=== PATIENT | male | born 1980 | race Caucasian/White ===

== ENCOUNTER → 2017-08-18 20:00 | Outpatient (CLI) | payer OTHER, SELFPAY | PROVIDERS: Family Provider Family Medicine; PCP Family Medicine; Visit Provider Psychiatry & Neurology Neurology | DX: G47.33 Obstructive sleep apnea (adult) (pediatric) (principal) | CPT/HCPCS: 95810 ==

== ENCOUNTER → 2017-09-14 20:00 | Outpatient (CLI) | payer OTHER, SELFPAY | PROVIDERS: Family Provider Family Medicine; PCP Family Medicine; Visit Provider Clinical Nurse Specialist Acute Care | DX: G47.33 Obstructive sleep apnea (adult) (pediatric) (principal) | CPT/HCPCS: 95811; J7120; J2405 ==

== ENCOUNTER → 2017-12-06 07:02 | Outpatient (CLI) | payer OTHER, SELFPAY ==
[2017-12-06 10:33] LABS: Absolute Lymphocyte Count 2.01 X10^3/ul (0.83-4.51); Absolute Neutrophil Count 1.9 X10^3/uL (2.0-7.7); Basophil# 0.02 X10^3/uL; Basophil% 0.4 % (0-1); Eosinophil# 0.13 X10^3/uL; Eosinophils% 2.6 % (0-5); Hematocrit 48.9 % (40-54); Hemoglobin 16.5 g/dl (13.0-16.5); Lymphocyte # 2.01 X10^3/ul (4.0); Lymphocyte % 39.6 % (19-41); Mean Corp Hgb Conc 33.7 g/gl (32-36); Mean Corpuscular Hgb 28.2 pg (27.0-32.0); Mean Corpuscular Volume 83.4 fL (80-94); Mean Platelet Vol. 11.3 fl (6.2-12.0); Monocyte# 0.99 X10^3/uL; Monocyte% 19.5 % (0-10); Neutrophil # 1.92 X10^3/uL (2.7-7.7); Neutrophil % 37.7 % (47-70); Platelet Count 169 K/mm3 (150-450); RBC Distribution Width CV 12.9 % (11.6-14.6); RBC Distribution Width SD 39.6 fl (35.1-43.9); Red Blood Count 5.86 M/mm3 (4.6-6.2); White Blood Count 5.1 K/mm3 (4.4-11.0)
[2017-12-06 10:36] LABS: POSITIVE COUNT NO; POSITIVE DIFFERENTIAL NO; POSITIVE MORPHOLOGY NO
== END ==
PROVIDERS: Family Provider Family Medicine; PCP Family Medicine; Referring Provider Family Medicine; Visit Provider Family Medicine
DX: E29.1 Testicular hypofunction (principal)
CPT/HCPCS: 36415; 84403; 85025

== ENCOUNTER → 2018-01-24 16:30 | Outpatient (CLI) | payer OTHER, SELFPAY ==
[2017-03-04 13:38] VITALS: BMI 37.5
[2018-01-24 17:33] LABS: Absolute Neutrophil Count 3.1 X10^3/uL (2.0-7.7); Basophil# 0.03 X10^3/uL; Basophil% 0.5 % (0-1); Eosinophil# 0.16 X10^3/uL; Eosinophils% 2.4 % (0-5); Hematocrit 46.5 % (40-54); Hemoglobin 15.1 g/dl (13.0-16.5); Lymphocyte % 39.7 % (19-41); Mean Corp Hgb Conc 32.5 g/gl (32-36); Mean Corpuscular Hgb 28.1 pg (27.0-32.0); Mean Corpuscular Volume 86.4 fL (80-94); Mean Platelet Vol. 10.3 fl (6.2-12.0); Monocyte# 0.62 X10^3/uL; Monocyte% 9.5 % (0-10); Neutrophil # 3.13 X10^3/uL (2.7-7.7); Neutrophil % 47.7 % (47-70); Platelet Count 188 K/mm3 (150-450); RBC Distribution Width CV 13.1 % (11.6-14.6); RBC Distribution Width SD 41.4 fl (35.1-43.9); Red Blood Count 5.38 M/mm3 (4.6-6.2); White Blood Count 6.6 K/mm3 (4.4-11.0)
[2018-01-24 17:40] LABS: Cholesterol 145 mg/dL (200); High Density Lipoprotein 35 mg/dL; Triglycerides 172 mg/dL
[2018-01-24 17:41] LABS: POSITIVE COUNT NO; POSITIVE DIFFERENTIAL NO; POSITIVE MORPHOLOGY NO; Very Low Density Lipoprotein 34 mg/dL (5-40)
== END ==
PROVIDERS: Family Provider Family Medicine; PCP Family Medicine; Visit Provider Family Medicine
DX: E34.9 Endocrine disorder, unspecified (principal)
CPT/HCPCS: 36415; 80061; 84403; 85025

== ENCOUNTER → 2018-07-10 | Outpatient (CLI) | payer OTHER, SELFPAY ==
[2017-03-04 13:38] VITALS: BMI 37.5
[2018-07-10 12:27] LABS: Absolute Lymphocyte Count 2.02 X10^3/ul (0.83-4.51); Absolute Neutrophil Count 2.8 X10^3/uL (2.0-7.7); Basophil# 0.02 X10^3/uL; Basophil% 0.3 % (0-1); Eosinophil# 0.21 X10^3/uL; Eosinophils% 3.5 % (0-5); Hematocrit 50.9 % (40-54); Hemoglobin 17.2 g/dl (13.0-16.5); Lymphocyte # 2.02 X10^3/ul (4.0); Lymphocyte % 34.1 % (19-41); Mean Corp Hgb Conc 33.8 g/gl (32-36); Mean Corpuscular Hgb 27.8 pg (27.0-32.0); Mean Corpuscular Volume 82.4 fL (80-94); Mean Platelet Vol. 11.7 fl (6.2-12.0); Monocyte# 0.87 X10^3/uL; Monocyte% 14.7 % (0-10); Neutrophil % 47.2 % (47-70); POSITIVE COUNT NO; POSITIVE DIFFERENTIAL NO; POSITIVE MORPHOLOGY NO; Platelet Count 182 K/mm3 (150-450); RBC Distribution Width CV 13.7 % (11.6-14.6); RBC Distribution Width SD 41.2 fl (35.1-43.9); Red Blood Count 6.18 M/mm3 (4.6-6.2); White Blood Count 5.9 K/mm3 (4.4-11.0)
[2018-07-10 13:15] LABS: Cholesterol 159 mg/dL (200); High Density Lipoprotein 33 mg/dL; Thyroid Stim Hormone (TSH) 1.29 uIU/mL (0.358-3.74); Triglycerides 209 mg/dL; Very Low Density Lipoprotein 42 mg/dL (5-40)
== END | disposition home or self-care (01) ==
LOC: MFPLAB 09:34
PROVIDERS: Family Provider Family Medicine; PCP Family Medicine; Referring Provider Family Medicine; Visit Provider Family Medicine
DX: Z00.00 Encounter for general adult medical examination without abnormal findings (principal); E34.9 Endocrine disorder, unspecified
CPT/HCPCS: 36415; 80061; 84403; 84443; 85025

== ENCOUNTER → 2018-11-09 11:02 | Outpatient (CLI) | payer OTHER, SELFPAY ==
[2017-03-04 13:38] VITALS: BMI 37.5
[2018-11-09 13:00] LABS: Absolute Lymphocyte Count 1.94 X10^3/uL (0.83-4.51); Absolute Neutrophil Count 3.1 X10^3/uL (2.0-7.7); Basophil# 0.03 X10^3/uL; Basophil% 0.5 % (0-1); Eosinophil# 0.18 X10^3/uL; Hematocrit 51.4 % (40-54); Hemoglobin 16.4 g/dL (13.0-16.5); Lymphocyte # 1.94 X10^3/ul (4.0); Lymphocyte % 32.2 % (19-41); Mean Corp Hgb Conc 31.9 g/dL (32-36); Mean Corpuscular Volume 84.7 fL (80-94); Mean Platelet Vol. 10.7 fl (6.2-12.0); Monocyte# 0.74 X10^3/uL; Monocyte% 12.3 % (0-10); NRBC Flagged by Analyzer 0 % (0-5); Neutrophil # 3.12 X10^3/uL (2.7-7.7); Neutrophil % 51.8 % (47-70); Platelet Count 184 K/mm3 (150-450); Red Blood Count 6.07 M/mm3 (4.6-6.2)
== END ==
PROVIDERS: Family Provider Family Medicine; PCP Family Medicine; Referring Provider Family Medicine; Visit Provider Family Medicine
DX: E34.9 Endocrine disorder, unspecified (principal)
CPT/HCPCS: 36415; 84403; 85025

== ENCOUNTER → 2019-10-01 14:05 | Outpatient (CLI) | payer OTHER, SELFPAY ==
[2019-10-01 15:06] LABS: Absolute Neutrophil Count 3.2 X10^3/uL (2.0-7.7); Basophil# 0.03 X10^3/uL; Basophil% 0.5 % (0-1); Eosinophils% 3.1 % (0-5); Hematocrit 50.8 % (40-54); Hemoglobin 15.9 g/dL (13.0-16.5); Lymphocyte % 34.6 % (19-41); Mean Corp Hgb Conc 31.3 g/dL (32-36); Mean Corpuscular Volume 86.2 fL (80-94); Mean Platelet Vol. 10.9 fl (6.2-12.0); Monocyte# 0.75 X10^3/uL; Monocyte% 11.8 % (0-10); NRBC Flagged by Analyzer 0 % (0-5); Neutrophil # 3.15 X10^3/uL (2.7-7.7); Neutrophil % 49.5 % (47-70); Platelet Count 201 K/mm3 (150-450); RBC Distribution Width CV 12.8 % (11.6-14.6); RBC Distribution Width SD 40.4 fl (35.1-43.9); Red Blood Count 5.89 M/mm3 (4.6-6.2); White Blood Count 6.4 K/mm3 (4.4-11.0)
[2019-10-05 14:08] LABS: Testosterone, Free 50.93 ng/dL (5.00-21.00)
[2019-10-06 01:21] LABS: Testosterone, % Free 3.68 % (1.50-4.20); Testosterone, Total 1384 ng/dL (264-916)
== END ==
PROVIDERS: PCP Family Medicine; Visit Provider Family Medicine
DX: E34.9 Endocrine disorder, unspecified (principal)
CPT/HCPCS: 36415; 84402; 84403; 85025

== ENCOUNTER 2019-11-05 12:00 | Outpatient (RCR) | payer OTHER, SELFPAY | END 2019-11-05 23:59 | disposition home or self-care (01) | LOC: NS 12:00 | PROVIDERS: PCP Family Medicine; Visit Provider Family Medicine | DX: Z71.3 Dietary counseling and surveillance (principal); E66.9 Obesity, unspecified; Z68.37 Body mass index [BMI] 37.0-37.9, adult | CPT/HCPCS: 97802 ==

== ENCOUNTER → 2020-03-13 07:44 | Outpatient (CLI) | payer BC, SELFPAY ==
[2020-03-13 09:43] LABS: Absolute Lymphocyte Count 2.09 X10^3/uL (0.83-4.51); Absolute Neutrophil Count 2.9 X10^3/uL (2.0-7.7); Basophil# 0.02 X10^3/uL; Basophil% 0.3 % (0-1); Eosinophil# 0.17 X10^3/uL; Eosinophils% 2.8 % (0-5); Hematocrit 49.4 % (40-54); Hemoglobin 15.3 g/dL (13.0-16.5); Lymphocyte # 2.09 X10^3/ul (4.0); Lymphocyte % 34.7 % (19-41); Mean Corpuscular Hgb 26.4 pg (27.0-32.0); Mean Corpuscular Volume 85.3 fL (80-94); Mean Platelet Vol. 10.7 fl (6.2-12.0); Monocyte# 0.83 X10^3/uL; Monocyte% 13.8 % (0-10); NRBC Flagged by Analyzer 0 % (0-5); Neutrophil % 48.1 % (47-70); Platelet Count 186 K/mm3 (150-450); RBC Distribution Width CV 13.1 % (11.6-14.6); RBC Distribution Width SD 40.7 fl (35.1-43.9); Red Blood Count 5.79 M/mm3 (4.6-6.2)
[2020-03-17 08:08] LABS: Testosterone, Free 13.72 ng/dL (5.00-21.00)
[2020-03-17 09:23] LABS: Testosterone, % Free 3.26 % (1.50-4.20); Testosterone, Total 421 ng/dL (264-916)
== END ==
PROVIDERS: PCP Family Medicine; Referring Provider Family Medicine; Visit Provider Family Medicine
DX: E34.9 Endocrine disorder, unspecified (principal)
CPT/HCPCS: 36415; 84402; 84403; 85025

== ENCOUNTER → 2021-02-10 | Outpatient (CLI) | payer OTHER, SELFPAY | END | disposition home or self-care (01) | LOC: LABSPEC 08:28 | PROVIDERS: PCP Family Medicine; Referring Provider Physician Assistant; Visit Provider Physician Assistant | DX: Z11.52 Encounter for screening for COVID-19 (principal) | CPT/HCPCS: 87635; U0005; U0003 ==

== ENCOUNTER 2021-06-09 07:10 | Outpatient (CLI) | payer OTHER, SELFPAY ==
[2021-06-09 10:14] LABS: Absolute Lymphocyte Count 1.81 X10^3/uL (0.83-4.51); Absolute Neutrophil Count 2.2 X10^3/uL (2.0-7.7); Basophil# 0.03 X10^3/uL; Basophil% 0.6 % (0-1); Eosinophil# 0.15 X10^3/uL; Eosinophils% 2.9 % (0-5); Hematocrit 47.6 % (40-54); Hemoglobin 15.8 g/dL (13.0-16.5); Lymphocyte # 1.81 X10^3/ul (0.83-4.51); Mean Corp Hgb Conc 33.2 g/dL (32-36); Mean Corpuscular Hgb 27.6 pg (27.0-32.0); Mean Corpuscular Volume 83.1 fL (80-94); Mean Platelet Vol. 10.6 fl (6.2-12.0); Monocyte# 0.94 X10^3/uL; Monocyte% 18.2 % (0-10); NRBC Flagged by Analyzer 0 % (0-5); Neutrophil # 2.24 X10^3/uL (2.7-7.7); Neutrophil % 43.3 % (47-70); Platelet Count 186 K/mm3 (150-450); RBC Distribution Width CV 12.4 % (11.6-14.6); RBC Distribution Width SD 37.5 fl (35.1-43.9); Red Blood Count 5.73 M/mm3 (4.6-6.2); White Blood Count 5.2 K/mm3 (4.4-11.0)
[2021-06-09 10:35] LABS: Hemoglobin A1c 5.1 % (3.8-5.6)
[2021-06-09 10:41] LABS: Cholesterol 134 mg/dL (200); High Density Lipoprotein 34 mg/dL; Triglycerides 82 mg/dL; Very Low Density Lipoprotein 16 mg/dL (5-40)
== END 2021-06-09 23:59 | disposition home or self-care (01) ==
PROVIDERS: PCP Family Medicine; Referring Provider Family Medicine; Visit Provider Family Medicine
DX: E34.9 Endocrine disorder, unspecified (principal)
CPT/HCPCS: 36415; 80061; 83036; 84403; 85025

== ENCOUNTER → 2022-07-29 | Outpatient (CLI) | payer OTHER, SELFPAY ==
[2022-07-29 12:27] LABS: Absolute Lymphocyte Count 1.99 X10^3/uL (0.83-4.51); Basophil# 0.02 X10^3/uL; Basophil% 0.3 % (0-1); Eosinophil# 0.18 X10^3/uL; Hematocrit 51.5 % (40-54); Hemoglobin 16.3 g/dL (13.0-16.5); Lymphocyte # 1.99 X10^3/ul (0.83-4.51); Lymphocyte % 32.7 % (19-41); Mean Corp Hgb Conc 31.7 g/dL (32-36); Mean Corpuscular Hgb 25.9 pg (27.0-32.0); Mean Corpuscular Volume 81.7 fL (80-94); Monocyte% 14.8 % (0-10); NRBC Flagged by Analyzer 0 % (0-5); Neutrophil # 2.99 X10^3/uL (2.7-7.7); Platelet Count 198 K/mm3 (150-450); RBC Distribution Width CV 13.4 % (11.6-14.6); White Blood Count 6.1 K/mm3 (4.4-11.0)
[2022-07-29 13:25] LABS: Cholesterol 153 mg/dL (200); High Density Lipoprotein 41 mg/dL; PSA,Total - Annual Screen 0.42 ng/mL (0.00-4.00); Triglycerides 137 mg/dL; Very Low Density Lipoprotein 27 mg/dL (5-40)
== END | disposition home or self-care (01) ==
LOC: MFPLAB 11:19
PROVIDERS: PCP Family Medicine; Visit Provider Family Medicine
DX: E34.9 Endocrine disorder, unspecified (principal)
CPT/HCPCS: 36415; 80061; 84153; 84403; 85025; G0103

== ENCOUNTER → 2022-09-07 | Outpatient (CLI) | payer OTHER, SELFPAY | END | disposition home or self-care (01) | PROVIDERS: PCP Family Medicine; Referring Provider Nurse Practitioner Acute Care; Visit Provider Nurse Practitioner Acute Care | DX: G47.33 Obstructive sleep apnea (adult) (pediatric) (principal) | CPT/HCPCS: 95811 ==

== ENCOUNTER → 2022-11-09 | Outpatient (CLI) | payer OTHER, SELFPAY ==
[2022-11-13 16:07] LABS: Testosterone, % Free 2.66 % (1.50-4.20); Testosterone, Total 252 ng/dL (264-916)
== END | disposition home or self-care (01) ==
LOC: MFPLAB 08:36
PROVIDERS: PCP Family Medicine; Visit Provider Nurse Practitioner Family
DX: E34.9 Endocrine disorder, unspecified (principal)
CPT/HCPCS: 36415; 84402; 84403

== ENCOUNTER → 2023-04-22 | Outpatient (CLI) | payer OTHER, SELFPAY ==
--- OUTSIDE RECORDS SUMMARY | 2023-04-22 07:06 | XMS RPT_ITS | CCD ---
Author Name Unknown Address [address] [place] [address] Organization [facility] Care Team Providers Care [employer] Finish [employer] Operator Name Role Phone EUGENE OLIVA, DR VERMA Primary Care Physician Medications Current Medications Medication Drug Class(es) Dates Sig (Normalized) Sig (Original) testosterone 30 mg/actuation transdermal solution (1 source) Start: 04-16-2021 testosterone 30 mg/actuation transdermal solution Apply 2 (TWO) pumps daily, alternating with 3 (THREE) pump daily transdermal Start Date: 04/16/21 Status: Ordered Problems Problem Classification Problem Date Documented Da te Episodic/Chronic Nonspecific chest pain (1 source) Chest pain; Translations: [Chest pain, unspecified] Onset: 04-16-2021 Episodic Results Test Name Value Interpretation Reference Range Facil ity Vital Signs Date Time Vital Sign Value Performing Clinician Jarrett aggarwal 04-16-2021 17:15-0500 Diastolic blood pressure 87 mm[Hg] DR LUI MAYES MD [facility] 04-16-2021 17:15-0500 Heart rate 62 /min DR LUI MAYES MD [facility] 04-16-2021 17:15-0500 Reason For Taking VItal Signs DR LUI MAYES MD [facility] 04-16-2021 17:15-0500 Respiratory rate 20 /min DR LUI MAYES MD [facility] 04-16-2021 17:15-0500 Systolic blood pressure 142 mm[Hg] DR LUI MAYES MD [facility] 04-16-2021 15:50-0500 Diastolic blood pressure 83 mm[Hg] DR LUI MAYES MD [facility] 04-16-2021 15:50-0500 Heart rate 54 /min DR LUI MAYES MD [facility] 04-16-2021 15:50-0500 Reason For Taking VItal Signs DR LUI MAYES MD [facility] 04-16-2021 15:50-0500 Respiratory rate 20 /min DR LUI MAYES MD [facility] 04-16-2021 15:50-0500 Systolic blood pressure 128 mm[Hg] DR LUI MAYES MD [facility] 04-16-2021 14:59-0500 Diastolic blood pressure 80 mm[Hg] DR LUI MAYES MD [facility] 04-16-2021 14:59-0500 Heart rate 74 /min DR LUI MAYES MD [facility] 04-16-2021 14:59-0500 Mean blood pressure 98 mm[Hg] DR LUI MAYES MD [facility] 04-16-2021 14:59-0500 Respiratory rate 18 /min DR LUI MAYES MD [facility] 04-16-2021 14:59-0500 Systolic blood pressure 135 mm[Hg] DR LUI MAYES MD [facility] 04-16-2021 14:52-0500 Mean blood pressure 100 mm[Hg] DR LUI MAYES MD [facility] 04-16-2021 14:52-0500 Reason For Taking VItal Signs DR LUI MAYES MD [facility] 04-16-2021 14:10-0500 Body temperature 98.6 [degF] DR LUI MAYES MD [facility] 04-16-2021 14:10-0500 Body weight [address] LUI MAYES MD [facility] 04-16-2021 14:10-0500 Heart rate 62 /min DR LUI MAYES MD [facility] Encounters Encounter Date Encounter Type Care Provider Facility Start: 04-16-2021 End: 04-16-2021 Emergency department patient visit DR LUI MAYES MD [facility] Social History Date Type Detail Facility Start: 04-16-2021 Never smoked t rocíoeddie (finding) [facility] Sex Assigned At Male [facility] Discharge instructions 04-16-2021 Note Date & Type Note Facility 04-16-2021 Hospital Discharg e instructions Patient Education 04/16/2021 17:17:55 Chest Pain, Uncertain Cause Uncertain Causes of Chest Pain Chest pain can happen for a number of reasons. Sometimes the cause can't be determined. If your condition does not seem serious, and your pain does not appear to be coming from your heart, your healthcare provider may recommend watching it closely. Sometimes the signs of a serious problem take more time to appear. Many problems not related to your heart can cause chest pain. These include: Musculoskeletal. Costochondritis is an inflammation of the tissues around the ribs that can occur from trauma or overuse injuries, or a strain of the muscles of the chest wall Respiratory. Pneumonia, collapsed lung (pneumothorax), or inflammation of the lining of the chest and lungs (pleurisy) Gastrointestinal. Esophageal reflux, heartburn, ulcers, or gallbladder disease Anxiety and panic disorders Nerve compression and inflammation Rare miscellaneous problems such as aortic aneurysm (a swelling of the large artery coming out of the heart) or pulmonary embolism (a blood clot in the lungs) Home care After your visit, follow these recommendations: Rest today and avoid strenuous activity. Take any prescribed medicine as directed. Be aware of any recurrent chest pain and notice any changes Follow-up care Follow up with your healthcare provider if you do not start to feel better within 24 hours, or as advised. Call 911 Call 911 if any of these occur: A change in the type of pain: if it feels different, becomes more severe, lasts longer, or begins to spread into your shoulder, arm, neck, jaw or back Shortness of breath or increased pain with breathing Weakness, dizziness, or fainting Rapid heart beat Crushing sensation in your chest When to seek medical advice Call your healthcare provider right away if any of the following occur: Cough with dark colored sputum (phlegm) or blood Fever of 100.4 F (38 C) or higher, or as directed by your healthcare provider Swelling, pain or redness in one leg [phone] [employer]. [address] [place] [address], [place] [address]. All rights reserved. This information is not intended as a substitute for professional medical care. Always follow your healthcare professional's instructions. Follow Up Care 04/16/2021 13:49:18 With:LUCI KNIGHT MD Address: [address] [place] [address]- When:2-4 days [facility] Progress note 11-12-2020 Note Date & Type Note Facility 11-12-2020 Note HNO ID: [id number] Author: Oscar Hernandez APRN.INFORMATION SECURITY OFFICER Service: ? Author Type: Nurse Practitioner Type: Progress Notes Filed: 11/12/2020 8:23 AM Note Text: Subjective HPI HPI Jr Mello is a 39 year old male who presents today for CC of sore throat, cough, congestion, loss of taste. This started 3 days ago. Has tried otc medication for relief. Symptoms are worse at night/st. Risk factors sick children at home, negative for covid. Patient denies fever, sob/cp. .Patient presents with: Cough: cough, sinus, congestion, and ST x 3 days PAST MEDICAL HISTORY Diagnosis Date - PMH - PAST MEDICAL HISTORY OF none PAST SURGICAL HISTORY Procedure Laterality Date - COLONOSCOP W/ OR W/O [facility] SPEC 12/28/03 Colonoscopy - hyperplastic polyp - PAST SURGICAL HISTORY OF testicular bx ALLERGIES Patient has no known allergies. MEDICATIONS AXIRON 30 mg/actuation (1.5 mL) slpm predniSONE (DELTASONE) 20 mg tablet Take 2 tablets by mouth once daily for 5 days. mupirocin (BACTROBAN) 2 % ointment Apply 1 application to affected area three times daily. FAMILY HISTORY Problem Relation Age of Onset - other (colonic polyps [Other]) Father Social History Tobacco Use - Smoking status: Never Smoker - Smokeless tobacco: Never Used Substance Use Topics - Alcohol use: Yes Comment: ocassional - Drug use: No Review of Systems Constitutional: Positive for malaise/fatigue. Negative for fever. HENT: Positive for congestion and sore throat. Negative for ear pain and nosebleeds. Respiratory: Positive for cough. Negative for shortness of breath and wheezing. Cardiovascular: Negative for chest pain. Musculoskeletal: Negative for neck pain. Skin: Negative for itching and rash. Objective Blood pressure 136/86, pulse 68, temperature 36.1 ?C (97 ?F), temperature source Tympanic, resp. rate 16, weight 125.9 kg (277 lb 9.6 oz), SpO2 96 %. Physical Exam Constitutional: General: He is not in acute distress. Appearance: He is not toxic-appearing or diaphoretic. HENT: Head: Normocephalic and atraumatic. Nose: Nose normal. Mouth/Throat: Pharynx: Uvula midline. No pharyngeal swelling, oropharyngeal exudate, posterior oropharyngeal erythema or uvula swelling. Eyes: General: Lids are normal. No scleral icterus. Right eye: No discharge. Left eye: No discharge. Conjunctiva/sclera: Conjunctivae normal. Pupils: Pupils are equal, round, and reactive to light. Neck: Trachea: Trachea normal. Cardiovascular: Rate and Rhythm: Normal rate and regular rhythm. Heart sounds: Normal heart sounds. Pulmonary: Effort: Pulmonary effort is normal. Breath sounds: Normal breath sounds. Musculoskeletal: Cervical back: Normal range of motion and neck supple. Lymphadenopathy: Cervical: No cervical adenopathy. Right cervical: No superficial cervical adenopathy. Left cervical: No superficial cervical adenopathy. Skin: Findings: No rash. Neurological: Mental Status: He is alert and oriented to person, place, and time. ASSESSMENT/PLAN: 1. URI, acute - ICD9: 465.9, ICD10: J06.9 (primary diagnosis) - Discussed viral etiology and rationale for treatment. - Symptomatic treatment with prn analgesia - Supportive care with fluids and rest - Follow up in 3-5 days if symptoms persist or sooner if worsening of symptoms - 2019 CORONAVIRUS 2. Sore throat - ICD9: 462, ICD10: J02.9 - suspect viral Prednisone for severity of pain - Alere Strep Test negative, no culture pending - Discussed supportive care treatment with fluids, rest and analgesia. - The patient should follow up in 3-5 days if symptoms persist or worsen - Call back if drooling, increased temperature, symptoms of dehydration and/or still sick in one week - STREP A MOLECULAR (POC) - 2019 CORONAVIRUS - PREDNISONE 20 MG TABLET Agrees to plan Oscar Hernandez APRN.INFORMATION SECURITY OFFICER [facility] Evaluation + Plan note Note Date & Type Note Facility Evaluation + Plan note No data available for this section [facility] [place] Summary Purpose Family History No Family History Records FoundNo Family History Records Found Advance Directives No Advanced Directives Records FoundNo Advanced Directives Records Found Additional Source Comments (unrecognized sect ion and content) No Status Records FoundNo Status Records Found INFORMATION SOURCE (unrecogn ized section and content) DATE CREATED AUTHOR AUTHOR'S ORGANIZ ATION 05/15/2021 [facility] ([place]) FOR RECORDS PERTAINING TO PATIENTS WHO ARE OR HAVE BEEN ENROLLED IN A CHEMICAL DEPENDENCY/SUBSTANCEABUSE PROGRAM, SOME INFORMATION MAY BE OMITTED. This clinical summary was aggregated from multiple sources. Caution should be exercised in using it in the provision of clinical care. This summary normalizes information from multiple sources, and as a consequence, information in this document may materially change the coding, format and clinical context of patient data. In addition, data may be omitted in some cases. CLINICAL DECISIONS SHOULD BE BASED ON THE PRIMARY CLINICAL RECORDS. [facility]. provides no warranty or guarantee of the accuracy or completeness of information in this document.
[2023-04-22 08:21] LABS: Absolute Lymphocyte Count 1.72 X10^3/uL (0.83-4.51); Basophil# 0.02 X10^3/uL; Basophil% 0.4 % (0-1); Eosinophil# 0.17 X10^3/uL; Eosinophils% 3.6 % (0-5); Hematocrit 46.6 % (40-54); Hemoglobin 15.2 g/dL (13.0-16.5); Lymphocyte # 1.72 X10^3/ul (0.83-4.51); Lymphocyte % 36.6 % (19-41); Mean Corp Hgb Conc 32.6 g/dL (32-36); Mean Corpuscular Hgb 27.4 pg (27.0-32.0); Mean Corpuscular Volume 84.1 fL (80-94); Mean Platelet Vol. 10.9 fl (6.2-12.0); Monocyte# 0.74 X10^3/uL; Monocyte% 15.7 % (0-10); NRBC Flagged by Analyzer 0 % (0-5); Neutrophil # 2.04 X10^3/uL (2.7-7.7); Neutrophil % 43.5 % (47-70); Platelet Count 197 K/mm3 (150-450); RBC Distribution Width CV 12.4 % (11.6-14.6); RBC Distribution Width SD 37.5 fl (35.1-43.9); Red Blood Count 5.54 M/mm3 (4.6-6.2); White Blood Count 4.7 K/mm3 (4.4-11.0)
[2023-04-22 08:42] LABS: Anion Gap 4 (5-15); BUN 20 mg/dL (7-18); BUN/Creat Ratio 17.9 RATIO (10-20); Calcium,Total 9.5 mg/dL (8.5-10.1); Chloride 112 mmol/L (98-107); Cholesterol 162 mg/dL (200); Creatinine, Serum 1.12 mg/dL (0.70-1.30); EST Glomerular Filtration Rate 76 mL/min (>60); Est Glom Filt Rate - Afr Amer 91 mL/min (>60); Glucose 85 mg/dL (74-106); High Density Lipoprotein 46 mg/dL; Potassium 4.1 mmol/L (3.5-5.1); Sodium Level 143 mmol/L (136-145); Triglycerides 60 mg/dL; Very Low Density Lipoprotein 12 mg/dL (5-40)
[2023-04-22 10:07] LABS: Microalbumin,Random Urine 19.1 mg/L (NO RANGE EST.); Microalbumin:Creatinine Ratio 8.7 mg/g CRE (<30 mg/g CRE)
== END | disposition home or self-care (01) ==
LOC: LAB 07:05
PROVIDERS: PCP Family Medicine; Referring Provider Family Medicine; Visit Provider Family Medicine
DX: I10 Essential (primary) hypertension (principal); E34.9 Endocrine disorder, unspecified
CPT/HCPCS: 36415; 80048; 80061; 82043; 82570; 84403; 85025

== ENCOUNTER 2023-07-03 07:24 | Day surgery (SDC) | payer OTHER, SELFPAY ==
[2023-07-03 07:41] VITALS: BP 131/82; PULSE 54; RESP 16; TEMP 36.6; O2SAT 98; BMI 39.9
[2023-07-03] MEDS: Lactated Ringers 1,000 ML 15 ML IV (07:43)
--- NOTE | 2023-07-03 08:15 | COLBX_PTH ---
PATIENT: RENÉ KNOX LOC: EN U#:[id number] AGE/SX: 42/M ROOM: RE07/03/[address]: Dr. Moise Live DO : 1980 BED: DIS: 07/03/2023 SPEC #: [id number] RECD: 07/03/23 11:08 STATUS: MARGY CUENCAHarjeet #: [id number] JUAN CARLOS: 07/03/23 08:[address]: Moise Live DEPT: SURGICAL PATHOLOGY RECD BY: Dale Doss ENTERED: 07/03/23 13:38 SP TYPE: COLON BX TAMELA DR: Dr. Catalina Polk MD Tissues: A - Cecum, NOS B - Sigmoid colon biopsy Procedures: Surgery Specimen Level IV HEADER OPERATION: Colonoscopy with polypectomy PRE-OP DIAGNOSIS: Encounter for screening for malignant neoplasm of colon TISSUE SUBMITTED: A- Polyp of cecum, B- Polyp of sigmoid MICROSCOPIC DIAGNOSIS A. Cecal polyp, biopsy: Fragments of tubular adenoma. B. Sigmoid polyp, biopsy: Fragments of tubular adenoma. / 07/05/2023 MICROSCOPIC DESCRIPTION Slides are reviewed. GROSS DESCRIPTION A. Received in fixative is one container labeled with the patient's name and designated Cecum polyp. The specimen consists of multiple irregular fragments of light bird soft tissue that in aggregate measure 2.0 x 1.0 x 0.1 cm. The specimen is totally submitted in one cassette. B. Received in fixative is one container labeled with the patient's name and designated Sigmoid polyp. The specimen consists of a polypoid fragment of light bird soft tissue measuring 1.0 x 0.7 x 0.3cm. The specimen is bisected and totally submitted in one cassette. / 07/03/2023 TC:5 [facility]:[id number]
--- NOTE | 2023-07-03 08:33 | PCM.HP.STD ---
[facility] - General General Date of Admission: 07/03/23 Date of Service: 07/03/23 Chief Complaint: Screening colonoscopy [facility] Narrative RENÉ KNOX, is a 42 M who presents today for screening colonoscopy. He has a past medical history of obstructive sleep apnea. He also has past medical history of hypertension. He comes in today for colonoscopy. He has a strong family history of colon cancer in his grandfather and uncle. Also his dad had history of multiple polyps. He is not have any abdominal pain. Denies any cramping. Denies any chest pain shortness of breath. Overall he is a very good health. [facility] Medical History (Updated 06/28/23 @ 13:56 by Patrizia Noble) Acute bronchitis, unspecified BiPAP (biphasic positive airway pressure) dependence Family hx of colon cancer History of irregular heartbeat HTN (hypertension) Hx of colonic polyp Non-smoker Sleep apnea Wears glasses Home Medications testosterone 30 mg/actuation (1.5 mL) transderm solution metered pump (Axiron) 2 pump topical QDAY 03/04/17 [History Last Taken Unknown] losartan 50 mg tablet 50 mg PO DAILY 05/19/23 [History Last Taken 07/03/23 05:00] Allergy/AdvReac Type Severity Reaction Status Date / Time No Known Allergies Allergy Verified 07/03/23 07:40 Surgical History (Updated 05/19/23 @ 11:09 by Rohini Hernandez) Hx of colonoscopy Social History (Updated 05/19/23 @ 11:09 by Rohini Hernandez) household members: spouse and children current occupational status: employed current occupation: [employer] Smoking Status: Never smoker alcohol intake: never substance use type: does not use ROS Review of Systems ROS Unobtainable: other Constitutional Constitutional: Denies fatigue, fever(s), poor appetite, weight gain or weight loss ENT HEENT: Denies mouth lesions Cardiovascular Cardiovascular: Denies abdominal bloating, abdominal edema or abdominal pain Respiratory/Chest Respiratory/Chest: Denies change in mental status, change in phlegm color, chest congestion or chest tightness Gastrointestinal Gastrointestinal: Denies belching, bloating, change in bowel habits, change in stool character, chewing difficulty, coffee ground emesis, constipation, cramping, diarrhea, dyspepsia, dysphagia, early satiety, excessive flatus, fecal incontinence, heartburn, hematemesis, hematochezia, hemorrhoids, loose stools, melena, nausea, odynophagia, rectal bleeding, tenesmus, vomiting or weight changes Genitourinary Genitourinary: Denies abdominal discomfort, burning urination or itching Musculoskeletal Musculoskeletal: Reports as per HPI; Denies muscle weakness or myalgias Integumentary Integumentary: Denies jaundice Neurologic Neurologic: Denies lack of coordination or weakness Psychiatric Psychiatric: Denies confusion, depression, memory loss, mood swings, paranoia or suicidal ideation Endocrine Endocrinology: Denies systems reviewed and no addt'l complaints, except as documented Hematologic/Lymphatic Hematologic/Lymphatic: Denies anemia, easy bleeding, easy bruising or lymphadenopathy Allergic/Immunologic Allergic/Immunologic: Denies systems reviewed and no addt'l complaints, except as documented Vital Signs Vital Signs Vital Signs: 07/03/23 07:41 07/03/23 07:41 Temperature 97.8 F Temperature Source Temporal Pulse Rate 54 L Respiratory Rate 16 Respiratory Pattern Normal Blood Pressure 131/82 H Blood Pressure Mean 98 Blood Pressure Source Monitor Blood Pressure Position Semi-Fowlers Blood Pressure Location Left Arm Pulse Ox 98 Oxygen Delivery Method Room Air Weight Weight: 286 lb 9.615 oz Body Mass Index (BMI) 39.9 Physical Exam Const alert General Appearance: cooperative Orientation / Consciousness: oriented to person HEENT hearing grossly normal bilaterally Head and Scalp: normal to inspection Face and Sinus: face symmetric Nose: external nose normal Mouth: oral and palatal mucosa normal Eyes conjunctivae normal General Eye: normal appearance of both eyes Neck full ROM General: normal visual inspection Lymph Lymphatic: no lymphadenopathy noted Chest inspection of chest normal and palpation of chest normal Chest: symmetrical chest wall rise Resp normal respiratory effort Effort and Inspection: able to speak in complete sentences Cardio regular rate GI non-distended Percussion: normal to percussion Rectal Exam: deferred Neuro Speech: speech normal Gait (Neuro): normal gait Assessment & Plan Assessment/Plan (1) Encounter for screening for malignant neoplasm of colon: PLAN: He was explained alternatives, risk, benefits including not withstanding bleeding, infection, sepsis, perforation, need for emergent surgery and . He will have an ASA of 3.
--- NOTE | 2023-07-03 09:00 | OP.CCLET_ITS ---
07/03/2023 Catalina [address]k [address] [place] [address] Re : Colonoscopy procedure for Gustavo Mello Dear Dr. Polk This procedure was performed on Monday, July 03, 2023. My impressions and recommendations are as follows: Impressions : - Two 1 to 2 mm polyps in the sigmoid colon and in the cecum, removed with a hot snare. Resected and retrieved. - The examination was otherwise normal on direct and retroflexion views. Recommendations : - Discharge patient to home. - Resume previous diet. - Continue present medications. - Await pathology results. - Repeat colonoscopy in 3 years for surveillance. My findings are described in the full procedure note, which is enclosed. If I can be of further assistance, please feel free to contact me at . Sincerely, Moise Live, 07/03/2023 8:59:41 AM This report has been signed electronically.
--- NOTE | 2023-07-03 09:00 | OP.COLON_ITS ---
Patient Name: Gustavo Mello Procedure Date: 07/03/2023 8:38 AM Date of : 1980 Age: 42 Procedure: Colonoscopy Indications: Screening for colorectal malignant neoplasm Providers: Moise Live DO Medicines: Monitored Anesthesia Care Patient Profile: This is a 42 year old male. Refer to note in patient chart for documentation of history and physical. Last Colonoscopy: date unknown. Unable to locate last colonoscopy report. Complications: No immediate complications. Procedure: Pre-Anesthesia Assessment: - Prior to the procedure, a History and Physical was performed, and patient medications and allergies were reviewed. The patient is competent. The risks and benefits of the procedure and the sedation options and risks were discussed with the patient. All questions were answered and informed consent was obtained. Patient identification and proposed procedure were verified by the physician in the pre-procedure area. Mental Status Examination: alert and oriented. Airway Examination: normal oropharyngeal airway and neck mobility. Respiratory Examination: clear to auscultation. CV Examination: normal. Prophylactic Antibiotics: The patient does not require prophylactic antibiotics. Prior Anticoagulants: The patient has taken no anticoagulant or antiplatelet agents. ASA Grade Assessment: III - A patient with severe systemic disease. After reviewing the risks and benefits, the patient was deemed in satisfactory condition to undergo the procedure. The anesthesia plan was to use monitored anesthesia care (MAC). Immediately prior to administration of medications, the patient was re-assessed for adequacy to receive sedatives. The heart rate, respiratory rate, oxygen saturations, blood pressure, adequacy of pulmonary ventilation, and response to care were monitored throughout the procedure. The physical status of the patient was re-assessed after the procedure. After I obtained informed consent, the scope was passed under direct vision. Throughout the procedure, the patient's blood pressure, pulse, and oxygen saturations were monitored continuously. The Colonoscope was introduced through the anus and advanced to the cecum, identified by appendiceal orifice and ileocecal valve. The colonoscopy was performed without difficulty. The patient tolerated the procedure well. The quality of the bowel preparation was adequate. The ileocecal valve, appendiceal orifice, and rectum were photographed. Scope In: 8:44:16 AM Scope Withdrawal Time 0 hours 8 minutes 5 seconds Scope Out: 8:55:47 AM Total Procedure Duration Time 0 hours 11 minutes 31 seconds Findings: The perianal and digital rectal examinations were normal. Two sessile polyps were found in the sigmoid colon and cecum. The polyps were 1 to 2 mm in size. These polyps were removed with a hot snare. Resection and retrieval were complete. Verification of patient identification for the specimen was done. Estimated blood loss was minimal. The exam was otherwise without abnormality on direct and retroflexion views. Impression: - Two 1 to 2 mm polyps in the sigmoid colon and in the cecum, removed with a hot snare. Resected and retrieved. - The examination was otherwise normal on direct and retroflexion views. Recommendation: - Discharge patient to home. - Resume previous diet. - Continue present medications. - Await pathology results. - Repeat colonoscopy in 3 years for surveillance. Procedure Code(s): --- Professional --- 89114, Colonoscopy, flexible; with removal of tumor(s), polyp(s), or other lesion(s) by snare technique CPT copyright 2021 [employer]. All rights reserved. The codes documented in this report are preliminary and upon plan nurse review may be revised to meet current compliance requirements. Moise Live DO 07/03/2023 8:59:41 AM This report has been signed electronically. Number of Addenda: 0 Note Initiated On: 07/03/2023 8:38 AM
[2023-07-03 09:01] VITALS: BP 131/82; BP 70/52; PULSE 54; RESP 14; TEMP 36.2; O2SAT 96
[2023-07-03 09:05] VITALS: BP 101/47; BP 131/82; PULSE 54; RESP 16; O2SAT 97
[2023-07-03 09:10] VITALS: BP 100/60; BP 131/82; PULSE 56; RESP 16; O2SAT 98
[2023-07-03 09:15] VITALS: BP 102/49; BP 131/82; PULSE 53; RESP 16; TEMP 36.2; O2SAT 94
[2023-07-03 09:37] VITALS: BP 131/82
== END 2023-07-03 09:39 | disposition home or self-care (01) ==
LOC: EN 07:26 → AC 07:28
PROVIDERS: PCP Family Medicine; Referring Provider Family Medicine; Visit Provider Internal Medicine Gastroenterology
PROC: 0DJD8ZZ Inspection of Lower Intestinal Tract, Via Natural or Artificial Opening Endoscopic (ICD-10-PCS; CPT 45378; principal; 2023-07-03 08:10)
DX: Z12.11 Encounter for screening for malignant neoplasm of colon (principal); K63.5 Polyp of colon; Z80.0 Family history of malignant neoplasm of digestive organs; I10 Essential (primary) hypertension; Z99.81 Dependence on supplemental oxygen; Z79.899 Other long term (current) drug therapy; D12.0 Benign neoplasm of cecum
CPT/HCPCS: 45385; 88305; J7120; J2405

== ENCOUNTER → 2023-07-31 | Outpatient (CLI) | payer OTHER, SELFPAY ==
[2023-07-31 13:30] LABS: PSA,Total - Annual Screen 0.33 ng/mL (0.00-4.00)
== END | disposition home or self-care (01) ==
LOC: MFPLAB 10:02
PROVIDERS: PCP Family Medicine; Visit Provider Family Medicine
DX: Z12.5 Encounter for screening for malignant neoplasm of prostate (principal)
CPT/HCPCS: 36415; 84153; G0103

== ENCOUNTER → 2023-12-16 | Outpatient (CLI) | payer OTHER, SELFPAY ==
--- OUTSIDE RECORDS SUMMARY | 2023-12-16 09:02 | XMS RPT_ITS | CCD ---
Author Organization [facility] Inform ion Partnership [facility] Care Team Providers Care Sonography Technologist Name Role Phone EUGENE OLIVA, DR VERMA [...] Results Test Name Value Interpretation Reference Range Facility .Auto Diffon 04-16-2021 Basophil, Absolute 0.00 10 3/mcL Normal 0.00-0.19 [facility] ([place]) Comment on above: Performed By: #### C BC, ADIFF, ANEU, BMP, TROPHS, GFR #### [address] [address] Basophils/100 WBC (Bld) 0.5 % Normal 0.0-2.5 [facility] ([place]) Comment on above: Performed By: #### C BC, ADIFF, ANEU, BMP, TROPHS, GFR #### [address] [address] Eosinophil, Absolute 0.10 10 3/mcL Normal 0.00-0.40 [facility] ([place]) Comment on above: Performed By: #### C BC, ADIFF, ANEU, BMP, TROPHS, GFR #### [address] [address] Eosinophils/100 WBC (Bld) 2.1 % Normal 0.0-7.0 [facility] ([place]) Comment on above: Performed By: #### C BC, ADIFF, ANEU, BMP, TROPHS, GFR #### [address] [address] Lymphocyte, Absolute 1.90 10 3/mcL Normal 0.77-3.85 [facility] ([place]) Comment on above: Performed By: #### C BC, ADIFF, ANEU, BMP, TROPHS, GFR #### [address] [address] Lymphocytes/100 WBC (Bld) 32.8 % Normal 10.0-50.0 [facility] ([place]) Comment on above: Performed By: #### C BC, ADIFF, ANEU, BMP, TROPHS, GFR #### [address] [address] Monocyte, Absolute 0.80 10 3/mcL Normal 0.15-1.00 [facility] ([place]) Comment on above: Performed By: #### C BC, ADIFF, ANEU, BMP, TROPHS, GFR #### [address] [address] Monocytes/100 WBC (Bld) 13.4 % High 1.7-13.0 [facility] ([place]) Comment on above: Performed By: #### C BC, ADIFF, ANEU, BMP, TROPHS, GFR #### [address] [address] Neutrophils/100 WBC (Bld) 51.2 % Normal 37.0-80.0 [facility] ([place]) Comment on above: Performed By: #### C BC, ADIFF, ANEU, BMP, TROPHS, GFR #### [address] [address] .GFRon 04-16-2021 GFR 100 ml/min/1.73sqm Normal [facility] ([place]) Comment on above: Result Comment: GFR Population mean for , Non- Americans Ages 20-29 = 116 mL/min/1.73 sq.m. Ages 30-39 = 107 mL/min/1.73 sq.m. Ages 40-49 = 99 mL/min/1.73 sq.m. Ages 50-59 = 93 mL/min/1.73 sq.m. Ages 60-69 = 85 mL/min/1.73 sq.m. Ages 70+ = 75 mL/min/1.73 sq.m. Chronic Kidney Disease: Less than 60 mL/min/1.73 square meters End Stage Renal Disease: Less than 15 mL/min/1.73 square meters Performed By: #### C BC, ADIFF, ANEU, BMP, TROPHS, GFR #### [address] [address] GFR Non- 83 ml/min/1.73sqm Normal [facility] ([place]) Comment on above: Result Comment: GFR Population mean for , Non- Americans Ages 20-29 = 116 mL/min/1.73 sq.m. Ages 30-39 = 107 mL/min/1.73 sq.m. Ages 40-49 = 99 mL/min/1.73 sq.m. Ages 50-59 = 93 mL/min/1.73 sq.m. Ages 60-69 = 85 mL/min/1.73 sq.m. Ages 70+ = 75 mL/min/1.73 sq.m. Chronic Kidney Disease: Less than 60 mL/min/1.73 square meters End Stage Renal Disease: Less than 15 mL/min/1.73 square meters Performed By: #### C BC, ADIFF, ANEU, BMP, TROPHS, GFR #### [address] [address] .NEUABSon 04-16-2021 Neutrophil, Absolute 3.00 10 3/mcL Normal 2.85-6.16 [facility] ([place]) Comment on above: Performed By: #### C BC, ADIFF, ANEU, BMP, TROPHS, GFR #### [address] [address] BMPon 04-16-2021 BUN/Creatinine Ratio 15 ratio Normal 7-27 [facility] ([place]) Comment on above: Performed By: #### C BC, ADIFF, ANEU, BMP, TROPHS, GFR #### [address] [address] Calcium [Mass/Vol] 8.6 mg/dL Normal 8.4-10.2 [facility] ([place]) Comment on above: Performed By: #### C BC, ADIFF, ANEU, BMP, TROPHS, GFR #### [address] [address] Chloride [Moles/Vol] 105 mmol/L Normal 98-107 [facility] ([place]) Comment on above: Performed By: #### C BC, ADIFF, ANEU, BMP, TROPHS, GFR #### [place] [address] CO2 [Moles/Vol] 25 mmol/L Normal 22-29 [facility] ([place]) Comment on above: Performed By: #### C BC, ADIFF, ANEU, BMP, TROPHS, GFR #### [address] [address] Creatinine [Mass/Vol] 0.99 mg/dL Normal 0.70-1.30 [facility] ([place]) Comment on above: Performed By: #### C BC, ADIFF, ANEU, BMP, TROPHS, GFR #### [address] [address] Electrolyte Balance 11.0 mEq/L Normal 4.0-15.0 [facility] ([place]) Comment on above: Performed By: #### C BC, ADIFF, ANEU, BMP, TROPHS, GFR #### [address] [address] Glucose [Mass/Vol] 109 mg/dL High 70-105 [facility] ([place]) Comment on above: Performed By: #### C BC, ADIFF, ANEU, BMP, TROPHS, GFR #### [address] [address] Potassium [Moles/Vol] 4.0 mmol/L Normal 3.5-5.1 [facility] ([place]) Comment on above: Performed By: #### C BC, ADIFF, ANEU, BMP, TROPHS, GFR #### [address] [address] Sodium [Moles/Vol] 141 mmol/L Normal 136-145 [facility] ([place]) Comment on above: Performed By: #### C BC, ADIFF, ANEU, BMP, TROPHS, GFR #### [place] [id number] Urea nitrogen [Mass/Vol] 15 mg/dL Normal 7-18 [facility] ([place]) Comment on above: Performed By: #### C BC, ADIFF, ANEU, BMP, TROPHS, GFR #### [address] [address] CBCon 04-16-2021 Erythrocyte distribution width (RBC) [Ratio] 13.1 % Normal 11.5-14.5 [facility] ([place]) Comment on above: Performed By: #### C BC, ADIFF, ANEU, BMP, TROPHS, GFR #### [address] [address] Hematocrit (Bld) [Volume fraction] 48.2 % Normal 42.0-52.0 [facility] ([place]) Comment on above: Performed By: #### C BC, ADIFF, ANEU, BMP, TROPHS, GFR #### [address] [address] Hgb 16.3 G/dL Normal 14.0-18.0 [facility] ([place]) Comment on above: Performed By: #### C BC, ADIFF, ANEU, BMP, TROPHS, GFR #### [address] [address] MCH (RBC) [Entitic mass] 28.0 pg Normal 27.0-31.2 [facility] ([place]) Comment on above: Performed By: #### C BC, ADIFF, ANEU, BMP, TROPHS, GFR #### [place] [phone] MCHC 33.8 G/dL Normal 31.8-35.4 [facility] ([place]) Comment on above: Performed By: #### C BC, ADIFF, ANEU, BMP, TROPHS, GFR #### [address] [address] MCV (RBC) [Entitic vol] 82.8 fL Normal 80.0-94.0 [facility] ([place]) Comment on above: Performed By: #### C BC, ADIFF, ANEU, BMP, TROPHS, GFR #### [place] [address] Platelet 200 10 3/mcL Normal 130-400 [facility] ([place]) Comment on above: Performed By: #### C BC, ADIFF, ANEU, BMP, TROPHS, GFR #### [place] [address] Platelet mean volume (Bld) [Entitic vol] 8.7 fL Normal 7.4-10.4 [facility] ([place]) Comment on above: Performed By: #### C BC, ADIFF, ANEU, BMP, TROPHS, GFR #### [address] [address] RBC 5.81 10 6/mcL Normal 4.04-6.13 [facility] ([place]) Comment on above: Performed By: #### C BC, ADIFF, ANEU, BMP, TROPHS, GFR #### [address] [address] WBC 5.90 10 3/mcL Normal 4.60-10.80 [facility] ([place]) Comment on above: Performed By: #### C BC, ADIFF, ANEU, BMP, TROPHS, GFR #### [address] [address] LABORATORYOrdered By: Chichi Garner on 04-16-2021 Troponin I.cardiac DL <= 0.01 ng/mL [Mass/Vol] 7.8 ng/L Invalid Interpretation Code 0.0 - 76.2 ng/L AO ADM SS Calcium [Mass/Vol] 8.6 mg/dL Invalid Interpretation Code 8.4 - 10.2 mg/dL AO ADM SS Chloride [Moles/Vol] 105 mmol/L Invalid Interpretation Code 98 - 107 mmol/L AO ADM SS CO2 [Moles/Vol] 25 mmol/L Invalid Interpretation Code 22 - 29 mmol/L AO ADM SS Creatinine [Mass/Vol] 0.99 mg/dL Invalid Interpretation Code 0.70 - 1.30 mg/dL AO ADM SS Electrolyte Balance 11.0 mEq/L Invalid Interpretation Code 4.0 - 15.0 mEq/L AO ADM SS Glucose [Mass/Vol] 109 mg/dL Invalid Interpretation Code 70 - 105 mg/dL AO ADM SS Potassium [Moles/Vol] 4.0 mmol/L Invalid Interpretation Code 3.5 - 5.1 mmol/L AO ADM SS Sodium [Moles/Vol] 141 mmol/L Invalid Interpretation Code 136 - 145 mmol/L AO ADM SS Troponin I.cardiac DL <= 0.01 ng/mL [Mass/Vol] 7.1 ng/L Invalid Interpretation Code 0.0 - 76.2 ng/L AO ADM SS Urea nitrogen [Mass/Vol] 15 mg/dL Invalid Interpretation Code 7 - 18 mg/dL AO ADM SS Urea nitrogen/Creatinine [Mass ratio] 15 ratio Invalid Interpretation Code 7 - 27 ratio AO ADM SS LABORATORYOrdered By: Shaheen Ulloa on 04-16-2021 Basophil, Absolute 0.00 103/mcL Invalid Interpretation Code 0.00 - 0.19 10^3/mcL AO Auto Heme SS Basophils/100 WBC (Bld) 0.5 % Invalid Interpretation Code 0.0 - 2.5 % AO Auto Heme SS Eosinophil, Absolute 0.10 103/mcL Invalid Interpretation Code 0.00 - 0.40 10^3/mcL AO Auto Heme SS Eosinophils/100 WBC (Bld) 2.1 % Invalid Interpretation Code 0.0 - 7.0 % AO Auto Heme SS Erythrocyte distribution width (RBC) [Ratio] 13.1 % Invalid Interpretation Code 11.5 - 14.5 % AO Auto Heme SS Hematocrit (Bld) [Volume fraction] 48.2 % Invalid Interpretation Code 42.0 - 52.0 % AO Auto Heme SS Hemoglobin (Bld) [Mass/Vol] 16.3 G/dL Invalid Interpretation Code 14.0 - 18.0 G/dL AO Auto Heme SS Lymphocyte, Absolute 1.90 103/mcL Invalid Interpretation Code 0.77 - 3.85 10^3/mcL AO Auto Heme SS Lymphocytes/100 WBC (Bld) 32.8 % Invalid Interpretation Code 10.0 - 50.0 % AO Auto Heme SS MCH (RBC) [Entitic mass] 28.0 pg Invalid Interpretation Code 27.0 - 31.2 pg AO Auto Heme SS MCHC (RBC) [Mass/Vol] 33.8 G/dL Invalid Interpretation Code 31.8 - 35.4 G/dL AO Auto Heme SS MCV (RBC) [Entitic vol] 82.8 fL Invalid Interpretation Code 80.0 - 94.0 fL AO Auto Heme SS Monocyte, Absolute 0.80 103/mcL Invalid Interpretation Code 0.15 - 1.00 10^3/mcL AO Auto Heme SS Monocytes/100 WBC (Bld) 13.4 % Invalid Interpretation Code 1.7 - 13.0 % AO Auto Heme SS Neutrophil, Absolute 3.00 103/mcL Invalid Interpretation Code 2.85 - 6.16 10^3/mcL AO Auto Heme SS Neutrophils/100 WBC (Bld) 51.2 % Invalid Interpretation Code 37.0 - 80.0 % AO Auto Heme SS Platelet mean volume (Bld) [Entitic vol] 8.7 fL Invalid Interpretation Code 7.4 - 10.4 fL AO Auto Heme SS Platelets (Bld) [#/Vol] 200 103/mcL Invalid Interpretation Code 130 - 400 10^3/mcL AO Auto Heme SS RBC (Bld) [#/Vol] 5.81 106/mcL Invalid Interpretation Code 4.04 - 6.13 10^6/mcL AO Auto Heme SS WBC (Bld) [#/Vol] 5.90 103/mcL Invalid Interpretation Code 4.60 - 10.80 10^3/mcL AO Auto Heme SS LABORATORYOrdered By: SYSTEM SYSTEM on 04-16-2021 GFR 100 ml/min/1.73sqm Invalid Interpretation Code AO Chemistry S GFR Non- 83 ml/min/1.73sqm Invalid Interpretation Code [facility] Troponin I High Sensitivity 7.8 ng/L Normal 0.0-76.2 [facility] ([place]) Comment on above: Performed By: #### T [facility] #### Sergio [address] [address] Troponin I High Sensitivity 7.1 ng/L Normal 0.0-76.2 [facility] ([place]) Comment on above: Performed By: #### C BC, ADGIOVANNA, SAMANTHA, BMP, TROPHS, GFR #### [place]ergio [place] [address] [place], [place] [address] XR CHEST 2 VIEWSon XR CHEST 2 VIEWS ORIGINAL EXAMINATION: TWO XRAY VIEWS OF THE CHEST 04/16/2021 2:49 pm COMPARISON: None. HISTORY: ORDERING SYSTEM PROVIDED HISTORY: Reason for Exam: Chest Pain Chest pain x1 week, increasing pain left shoulder blade area today FINDINGS: Cardiomediastinal contours are normal. Low lung volumes. No focal consolidation. Moderate ring leads overlying the patient. No pneumothorax or pleural effusion. IMPRESSION: No acute cardiopulmonary process. Interpreted by: Xander Peters Preliminary Report By: Xander Peters Electronically signed By Xander Peters Dictated Date: 04/16/2021 2:58:57 PM Prelim Date: 04/16/2021 3:00:09 PM Sign Date: 04/16/2021 3:00:09 PM Ordering Provider: LUI Corona [facility] ([place]) CNOVtanya 11-12-2020 CNOV Office Visit (UCWSTR) ---- PETER MELLO ([id number]) 1980 M Date Time Provider Department 11/12/20 7:45 AM HERMINIA HERNANDEZ [facility] During your visit today, we recorded the following information about you: Temperature Pulse Respiration Blood pressure 97 degrees 68/minute 16/minute 136/86 Weight 125.9 kg Herminia Hernandez APRN.CNP 11/12/2020 8:16 AM Signed How to Manage Common Symptoms Associated with COVID for Adults Fever- Fever is a temperature over 100.4 F and can occur when the body is fighting an infection. To help treat a fever: - Drink plenty of fluids and stay well hydrated. - Eat small amounts of easy to digest food. - Rest. Your body needs rest to recover, but getting up and moving around the house frequently is a good idea. You should try to continue doing your normal daily activities (bathing, toileting, grooming, cooking), though you will probably feel tired, and need to rest often. - Avoid any heavy activity or exercise, as this will increase your body temperature. - Dress in light clothing and stay covered in a light sheet. Keep the room temperature cool. - Take a slightly warm (not cold or cool) bath, or apply damp washcloths to the forehead and wrists. Cough- Cough is a common symptom associated with COVID and can be bothersome. To help treat a cough: - Stay well hydrated. Try warm water or tea with lemon and/or honey to help soothe the cough. - Use a humidifier to add moisture to the air. - Try a product with menthol, like a cough drop or a rub for your chest such as Vicks, which can help reduce cough. - Try cough drops. - Avoid smoking and other strong odors or perfumes. - Try breathing exercises to keep your lungs open and clear. Take a big deep breath through your nose and hold for 5 seconds before slowly releasing. Repeat frequently, while you are awake. Congestion- Runny nose or nasal congestion can occur with COVID. Treatment can help relieve symptoms: - Try OTC nasal saline spray, or nasal saline rinse to relieve mucus congestion. - Nasal strips can help keep nasal passages open, to increase airflow. - Elevating your head with an extra pillow in bed can help reduce congestion. - Using a humidifier can increase moisture in the air, and make breathing easier. Sore Throat- Another common symptom with COVID, can be managed at home by: - Stay well hydrated. - Gargle with salt water ? mix ? teaspoon salt with 1 cup of warm water and gargle. This helps to loosen mucus in the back of the throat and may reduce discomfort. - Try ice chips, popsicles or lozenges to soothe the throat. Nausea/Vomiting/Sylvia rrhea- These are common symptoms, and staying hydrated is most important. - If you are nauseous or vomiting, start with small sips of water every 10-15 minutes and increase as tolerated. You can try sucking an ice cube too. - If tolerating, you can try pedialyte or Gatorade, or flat sprite or shyann-harpreet. Start slowly and increase as you are able to. - Instead of meals, try smaller, more frequent snacks. Try eating bland foods like crackers, toast, rice, and applesauce. Avoid spicy, greasy or fried foods and dairy containing foods. Even if you aren't feeling hungry due to lack of smell or taste, it is important to try to take in some food when you are able. - After drinking and eating, rest in an upright position for up to two hours as needed to help decrease nauseous feelings. Try closing your eyes, avoid moving and watching TV. - Avoid strong odors that can make you feel more nauseated. When to seek emergency medical attention Look for emergency warning signs for COVID-19. If having any of these symptoms, seek emergency medical care immediately: - Trouble breathing - Persistent pain or pressure in the chest - New confusion - Inability to wake or stay awake - Bluish lips or face *This list is not all possible symptoms. Please call your medical provider for any other symptoms that are severe or concerning to you. Herminia Hernandez APRN.[employer]ILRO[employer]ARD WORKER 11/12/2020 8:23 AM Signed Subjective HPI HPI Peter Carrera Widman is a 39 year old male who [...] Laterality Date - COLONOSCOP W/ OR W/O [facility] SPEC 12/28/03 Colonoscopy - hyperplastic polyp - PAST SURGICAL HISTORY OF testicular bx ALLERGIES Patient has no known allergies. MEDICATIONS AXIRON 30 mg/actuation (1.5 mL) slpm predniSONE (DELTASONE) 20 mg tablet Take 2 tablets by mouth once daily for 5 (more content not included)... Normal [facility] Coronavirus 2019on 1 SARS-CoV-2 (COVID-19) RNA DEJAN+probe Ql (Unsp spec) UPPER RESPIRATORY TRACT SWAB Normal [facility] Comment on above: Performed By: #### C OVID #### [place] [id number] SARS-CoV-2 (COVID-19) RNA DEJAN+probe Ql (Unsp spec) Negative for COVID19 (SARS CoV2) by RT-PCR or equivalent method. Normal Negative for COVID19 (SARS CoV2) by RT-PCR or equivalent method. [facility] Comment on above: Result Comment: This test was developed and its performance characteristics determined by [facility] [place]. This test has been authorized by FDA under an Emergency Use Authorization (EUA). This test has been validated in accordance with the FDA's Guidance Document Policy for Diagnostics Testing in Laboratories Certified to Perform High Complexity Testing under CLIA prior to Emergency use Authorization for Coronavirus Disease 2019 during the Public Health Emergency issued on April 20, 2019. Test performed by [facility], [facility] [place], [address] [place] [address]. Performed By: #### C OVID #### [place] [address] Vital Signs Date Time Vital Sign Value Performing Clinician Jarrett aggarwal 04-16-2021 17:15-0500 Diastolic blood pressure 87 mm[Hg] DR LUI MAYES MD [facility] 04-16-2021 17:15-0500 Heart rate 62 /min DR LUI MAYES MD [facility] 04-16-2021 17:15-0500 Reason For Taking VItal Signs DR LUI MAYES MD [facility] 04-16-2021 17:15-0500 Respiratory rate 20 /min DR LUI MAYES MD [facility] 04-16-2021 17:15-0500 Systolic blood pressure 142 mm[Hg] DR LUI MAYES MD [facility] 04-16-2021 15:50-0500 Diastolic blood pressure 83 mm[Hg] DR LUI MAYES MD [facility] 04-16-2021 15:50-0500 Heart rate 54 /min DR LUI MAYES MD [facility] 04-16-2021 15:50-0500 Reason For Taking VItal Signs DR LUI MAYES MD [facility] 04-16-2021 15:50-0500 Respiratory rate 20 /min DR LUI MAYES MD [facility] 04-16-2021 15:50-0500 Systolic blood pressure 128 mm[Hg] DR LUI MAYES MD [facility] 04-16-2021 14:59-0500 Diastolic blood pressure 80 mm[Hg] DR LUI MAYES MD [facility] 04-16-2021 14:59-0500 Heart rate 74 /min DR LUI MAYES MD [facility] 04-16-2021 14:59-0500 Mean blood pressure 98 mm[Hg] DR LUI MAYES MD [facility] 04-16-2021 14:59-0500 Respiratory rate 18 /min DR LUI MAYES MD [facility] 04-16-2021 14:59-0500 Systolic blood pressure 135 mm[Hg] DR LUI MAYES MD [facility] 04-16-2021 14:52-0500 Mean blood pressure 100 mm[Hg] DR LUI MAYES MD [facility] 04-16-2021 14:52-0500 Reason For Taking VItal Signs DR LUI MAYES MD [facility] 04-16-2021 14:10-0500 Body temperature 98.6 [degF] DR LUI MAYES MD [facility] 04-16-2021 14:10-0500 Body weight [address] LUI MAYES MD [facility] 04-16-2021 14:10-0500 Heart rate 62 /min DR LUI MAYES MD [facility] Encounters Encounter Date Encounter Type Care Provider Facility Start: 04-16-2021 End: 04-16-2021 Emergency department patient visit DR LUI MAYES MD [facility] Social History Date Type Detail Facility Start: 04-16-2021 Never smoked t obacco (finding) [facility] Sex Assigned At Male [facility] Discharge instructions 04-16-2021 Note Date & [...] Swelling, pain or redness in one leg [id number] [employer]. [address] [place] [address]. All rights reserved. This information is not intended as a substitute for professional medical care. Always follow your healthcare professional's instructions. Follow Up Care 04/16/2021 13:49:18 With:LUCI KNIGHT MD Address: [address] [place] [address]- When:2-4 days [facility] Progress note 11-12-2020 Note Date & Type Note Facility 11-12-2020 Note HNO ID: [id number] Author: Herminia Hernandez APRN.[employer]ILRO[employer] YARD WORKER Service: ? Author Type: Nurse Practitioner Type: Progress Notes Filed: 11/12/2020 8:23 AM Note Text: Subjective HPI HPI Peter Mello is a 39 year old male [...] Laterality Date - COLONOSCOP W/ OR W/O [facility] SPEC 12/28/03 Colonoscopy - hyperplastic polyp - [...] PREDNISONE 20 MG TABLET Agrees to plan Herminia Hernandez APRN.[facility] Evaluation + Plan note Note Date & Type Note Facility Evaluation + Plan note No data available for this section [facility] Summary Purpose Family History No Family History Records FoundNo Family History Records Found Advance Directives No Advanced Directives Records FoundNo Advanced Directives Records Found Additional Source Comments (unrecognized sect ion and content) No Status Records FoundNo Status Records Found INFORMATION SOURCE (unrecogn ized section and content) DATE CREATED AUTHOR 03/21/2021 [facility] DATE CREATED AUTHOR AUTHOR'S ORGANIZ ATION 05/15/2021 [facility] ([place]) FOR RECORDS PERTAINING [...] BE BASED ON THE PRIMARY CLINICAL RECORDS. [facility] [employer] [facility]. provides no warranty or guarantee of the accuracy or completeness of information in this document.
[2023-12-16 09:45] LABS: Hematocrit 46.7 % (40-54); Hemoglobin 14.6 g/dL (13.0-16.5); Mean Corp Hgb Conc 31.3 g/dL (32-36); Mean Corpuscular Hgb 24.7 pg (27.0-32.0); Mean Corpuscular Volume 79.2 fL (80-94); Mean Platelet Vol. 10.7 fl (6.2-12.0); Platelet Count 192 K/mm3 (150-450); RBC Distribution Width CV 13.7 % (11.6-14.6); RBC Distribution Width SD 39.6 fl (35.1-43.9); White Blood Count 5.7 K/mm3 (4.4-11.0)
[2023-12-16 10:43] LABS: AST(SGOT) 28 U/L (15-37); Alanine Aminotransfer ALT/SGPT 59 U/L (16-61); Albumin, Serum 3.7 g/dL (3.2-5.0); Alkaline Phosphatase 81 U/L (45-117); Anion Gap 2 (5-15); BUN 19 mg/dL (7-18); BUN/Creat Ratio 17.3 RATIO (10-20); Calcium,Total 8.9 mg/dL (8.5-10.1); Chloride 114 mmol/L (98-107); Cholesterol 158 mg/dL (200); EST Glomerular Filtration Rate 77 mL/min (>60); Est Glom Filt Rate - Afr Amer 93 mL/min (>60); Globulin 3.6 g/dL (2.2-4.2); Glucose 97 mg/dL (74-106); High Density Lipoprotein 37 mg/dL; Potassium 4.3 mmol/L (3.5-5.1); Protein, Total 7.3 g/dL (6.4-8.2); Sodium Level 142 mmol/L (136-145); Triglycerides 184 mg/dL; Very Low Density Lipoprotein 37 mg/dL (5-40)
[2023-12-22 15:09] LABS: Testosterone, % Free 2.92 % (1.50-4.20); Testosterone, Free 2.63 ng/dL (5.00-21.00); Testosterone, Total 90 ng/dL (264-916)
== END | disposition home or self-care (01) ==
LOC: LAB 09:00
PROVIDERS: PCP Family Medicine; Referring Provider Family Medicine; Visit Provider Family Medicine
DX: I10 Essential (primary) hypertension (principal); E66.01 Morbid (severe) obesity due to excess calories; E34.9 Endocrine disorder, unspecified
CPT/HCPCS: 36415; 80053; 80061; 84402; 84403; 84443; 85027

== ENCOUNTER → 2024-01-05 | Outpatient (CLI) | payer OTHER, SELFPAY ==
[2024-01-13 17:07] LABS: Testosterone, % Free 4.22 % (1.50-4.20); Testosterone, Free 20.97 ng/dL (5.00-21.00); Testosterone, Total 497 ng/dL (264-916)
== END | disposition home or self-care (01) ==
LOC: MFPLAB 15:44
PROVIDERS: PCP Family Medicine; Visit Provider Family Medicine
DX: E34.9 Endocrine disorder, unspecified (principal)
CPT/HCPCS: 36415; 84402; 84403

== ENCOUNTER → 2024-04-19 | Outpatient (CLI) | payer OTHER, SELFPAY ==
[2024-04-25 14:08] LABS: Testosterone, % Free 2.76 % (1.50-4.20); Testosterone, Free 15.51 ng/dL (5.00-21.00); Testosterone, Total 562 ng/dL (264-916)
== END | disposition home or self-care (01) ==
LOC: MTLAB 16:50
PROVIDERS: PCP Family Medicine; Referring Provider Family Medicine; Visit Provider Family Medicine
DX: E34.9 Endocrine disorder, unspecified (principal)
CPT/HCPCS: 36415; 84402; 84403

== ENCOUNTER → 2024-06-14 | Outpatient (CLI) | payer OTHER, SELFPAY | END | disposition home or self-care (01) | LOC: MFPLAB 14:35 | PROVIDERS: PCP Family Medicine; Referring Provider Family Medicine; Visit Provider Family Medicine | DX: E34.9 Endocrine disorder, unspecified (principal) | CPT/HCPCS: 36415; 84402; 84403 ==

== ENCOUNTER 2024-07-28 23:35 | Emergency (ER) | payer OTHER, SELFPAY ==
[2024-07-28 23:36] VITALS: BP 148/82; PULSE 66; RESP 18; TEMP 37.1; O2SAT 97; BMI 36.6
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
[2024-07-28] MEDS: 0.9% Normal Saline (1000mL) 1,000 ML 999 ML IV (23:51)
[2024-07-28] MEDS: Diphth,Pertuss(Acell),Tet Vac 0.5 ML Vial IM (23:51)
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
[2024-07-29 00:28] LABS: AST(SGOT) 29 U/L (<=37); Alanine Aminotransfer ALT/SGPT 21 U/L (<=46); Albumin, Serum 4.4 g/dL (3.5-5.0); Alkaline Phosphatase 80 U/L (40-129); Anion Gap 12 (5-15); BUN 19 mg/dL (4-19); BUN/Creat Ratio 19.3 RATIO (10-20); Bilirubin, Direct 0.21 mg/dL (0.00-0.30); Calcium,Total 9.3 mg/dL (7.6-11.0); Carbon Dioxide 23.5 mmol/L (21.0-32.0); Chloride 105 mmol/L (98-108); EST Glomerular Filtration Rate 95 (>60); Estimated Creatinine Clearance 122.52 ml/min (50-250); Globulin 2.8 g/dL (2.2-4.2); Glucose 96 mg/dL (70-99); Potassium 4.2 mmol/L (3.3-5.1); Protein, Total 7.2 g/dL (5.9-8.4); Sodium Level 140 mmol/L (133-145); Total Bilirubin 0.46 mg/dL (0.00-1.30)
[2024-07-29 00:29] LABS: Absolute Lymphocyte Count 1.67 X10^3/uL (0.83-4.51); Absolute Neutrophil Count 10.2 X10^3/uL (2.0-7.7); Basophil# 0.03 X10^3/uL; Basophil% 0.2 % (0-1); Eosinophil# 0.06 X10^3/uL; Eosinophils% 0.4 % (0-5); Hematocrit 47.4 % (40-54); Hemoglobin 15.1 g/dL (13.0-16.5); Lymphocyte # 1.67 X10^3/ul (0.83-4.51); Lymphocyte % 12.4 % (19-41); Mean Corp Hgb Conc 31.9 g/dL (32-36); Mean Corpuscular Hgb 24.9 pg (27.0-32.0); Mean Corpuscular Volume 78.1 fL (80-94); Mean Platelet Vol. 11.2 fl (6.2-12.0); Monocyte# 1.45 X10^3/uL; Monocyte% 10.8 % (0-10); NRBC Flagged by Analyzer 0 % (0-5); Neutrophil % 75.9 % (47-70); Platelet Count 178 K/mm3 (150-450); RBC Distribution Width CV 15.7 % (11.6-14.6); RBC Distribution Width SD 43.8 fl (35.1-43.9); Red Blood Count 6.07 M/mm3 (4.6-6.2); White Blood Count 13.5 K/mm3 (4.4-11.0)
--- OUTSIDE RECORDS SUMMARY | 2024-07-29 00:50 | XMS RPT_ITS | CCD ---
Author Organization [facility] CliniSywi Care Team Providers Care Physical Therapy Asst Name Role Phone DR CATALINA POLK MD Primary Care Physician Dr. Catalina Polk Primary Care Provider Dr. Catalina Polk Referring Provider Ruth TAPPING MACHINE OPERATOR AUTOMATIC, TAPPING MACHINE OPERATOR AUTOMATICFabienC Chen Attending Provider [phone] Dr. Catalina Polk Primary Care Provider Dr. Catalina Polk Referring Provider WILMER Humphrey Attending Provider [phone] Catalina Polk Primary Care Provider Rohini Hernandez Attending Provider Unavailable Dr. Catalina Polk Referring Provider [phone] Dr. Moise Live Attending Provider Dr. Moise Live Other Provider Catalina Polk Primary Care Provider [phone] CATALINA POLK Primary Care Unavailable Rajiv Hopkins MD Primary Care Provider [phone] Rajiv Hopkins MD Attending Provider Rajiv Hopkins MD Referring Provider Torsten Stone Attending Provider Rajiv Hopkins MD Primary Care Provider [phone] Rajiv Hopkins MD Attending Provider Rajiv Hopkins Attending Unavailable Kellie, Kelylon Primary Care Unavailable KellieKelly looneyon Referring Unavailable Kellie, Chalon Primary Care Unavailable Kellie, Chalon Attending Unavailable Kellie, Chalon Referring Unavailable Kellie, Chalon Primary Care Unavailable Kellie, Chalon Attending Unavailable Jolliff, Catalina S Attending Unavailable Jolliff, Catalina S Primary Care Unavailable Jolliff, Catalina S Primary Care Unavailable Jolliff, Catalina S Referring Unavailable Friend, Moise Consulting Unavailable Friend, Moise Attending Unavailable Kellie, Chalon Referring Unavailable Kellie, Chalon Primary Care Unavailable Torsten Stone Attending Unavailable Jolliff, Catalina S Primary Care Unavailable Jolliff, Catalina S Referring Unavailable Friend, Moise Attending Unavailable Kellie, Kellyon Attending Unavailable Kellie, Chalon Referring Unavailable Jolliff, Catalina S Primary Care Unavailable Medications Current Medications Medication Drug Class(es) Dates Sig (Normalized) Sig (Original) losartan potassium 50 mg oral tablet (4 sources) Angiotensin 2 Receptor Surekha Start: 05-19-2023 take 1 tablet by mouth once daily Losartan 50 mg tablet Active 50 mg PO DAILY May 19, 2023 12:00am testosterone cypionate 100 mg/ml injectable solution (9 sources) Androgen Start: 12-25-2023 testosterone cypionate (DEPO-TESTOSTERONE) 100 mg/mL injection INJECT 0.5 (ONE-HALF) OF A MILLILITER INTRAMUSCULARLY ONCE WEEKLY 12/25/2023 Active Start: 12-24-2015 End: 04-20-2024 Testosterone (Axiron) 30 mg/ actuation (1.5 mL) solution in metered pump w/ena Active 2 NMA TOPICAL daily March 04, 2017 1:00am testosterone 30 mg/actuation transdermal solution (1 source) Start: 04-16-2021 testosterone 3 0 mg/actuation transdermal solution Apply 2 (TWO) pumps daily, alternating with 3 (THREE) pump daily transdermal Start Date: 04/16/21 Status: Ordered valACYclovir 1000 mg oral tablet (1 source) Herpesvirus Nucleoside Analog DNA Polymerase Inhibitor, Herpes Simplex Virus Nucleoside Analog DNA Polymerase Inhibitor, Herpes Zoster Virus Nucleoside Analog DNA Polymerase Inhibitor Start: 04-20-2024 End: 04-27-2024 take 1 tablet by mouth three times daily valACYclovir (VALTREX) 1 gram tablet Indications: Herpes zoster without complications Take 1 tablet by mouth three times a day for 7 days. 21 tablet 04/20/2024 04/27/2024 Active Completed/Discontinued Medications Medication Drug Class(es) Dates Sig (Normalized) Sig (Original) [id number] 200 actuat albuterol 0.09 mg/actuat metered dose inhaler (7 sources) beta2-Adrenergic Agonist Start: 03-04-2017 End: 08-15-2022 take 2 puff(s) by inhalation every four to six hours as needed for wheezing Albuterol Sulfate (Ventolin Hfa) 90 mcg/actuation HFA aerosol inhaler Discontinued 2 NMA INHALATION .COMPLEX as needed for shortness of breath or wheezing 6.7 March 04, 2017 1:00am August 15, 2022 1:54pm 2 puff INHALATION every 4-6 hours PRN Start: 03-04-2017 End: 08-15-2022 take 2 puff(s) by inhalation every four to six hours as needed Albuterol Sulfate (Ventolin Hfa) 90 mcg/actuation HFA aerosol inhaler Discontinued 2 PUFF INHALATION .COMPLEX 6.7 March 04, 2017 1:00am August 15, 2022 1:54pm 2 puff INHALATION every 4-6 hours PRN amoxicillin 875 mg / clavulanate 125 mg oral tablet (7 sources) Penicillin-class Antibacterial Start: 03-04-2017 End: 08-15-2022 Amoxicillin-Pot Clavulanate (Augmentin) 875-125 mg tablet Discontinued 1 {tbl} PO TWICE A DAY 14 March 04, 2017 1:00am August 15, 2022 1:55pm azithromycin 250 mg oral tablet (12 sources) Macrolide Antimicrobial Start: 01-31-2022 End: 08-15-2022 take 2-5 tablets by mouth once daily Azithromycin 250 mg tablet Discontinued 0 PO .COMPLEX 6 January 31, 2022 1:00am August 15, 2022 1:55pm take 500 mg today (day 1), then 250 mg for 4 days (days 2-5) PO Start: 01-31-2022 End: 08-15-2022 Azithromycin 250 mg tablet D iscontinued 250 mg PO daily March 23, 2022 1:00am August 15, 2022 1:55pm 2 tablets today, then 1 tablet daily on days 2 through 5 benzonatate 100 mg oral capsule (7 sources) Non-narcotic Antitussive Start: 03-04-2017 End: 08-15-2022 take 1 capsule by mouth three times daily as needed for cough Benzonatate (Tessalon Perles) 100 mg capsule Discontinued 100 mg PO THREE TIMES A DAY as needed for cough March 04, 2017 1:00am August 15, 2022 1:55pm doxycycline hyclate 100 mg oral capsule (4 sources) Tetracycline-class Drug Start: 01-23-2023 End: 06-28-2023 take 1 capsule by mouth every twelve hours Doxycycline Hyclate 100 mg capsule Discontinued 100 mg PO Q12H January 23, 2023 1:00am June 28, 2023 1:52pm mupirocin 0.02 mg/mg topical ointment (1 source) RNA Synthetase Inhibitor Antibacterial Start: 10-04-2018 End: 04-20-2024 mupirocin (BACTROBAN) 2 % ointment Apply 1 application to affected area three times daily. 30 g 10/04/2018 04/20/2024 Discontinued polymyxin b 55225 unt/ml / trimethoprim 1 mg/ml ophthalmic solution (2 sources) Dihydrofolate Reductase Inhibitor Antibacterial, Polymyxin-class Antibacterial Start: 04-19-2024 End: 04-26-2024 Polymyxin B Sulf-Trimethoprim 10,000 unit- 1 mg/mL drops Discontinued 1 NMA OPHTHALMIC Q3H 10 April 19, 2024 1:00am April 25, 2024 1:00am April 26, 2024 1:15am while awake; do not exceed 6 doses in 24 hours Problems Active Problems Problem Classification Problem Date Documented Date Episodic/Chronic Acute bronchitis (12 sources) Acute bronchitis; Translations: [Acute bronchitis, unspecified] 01-31-2022 Episodic E Codes: Natural/environment (5 sources) Tick bite; Translations: [Bitten or stung by nonvenomous insect and other nonvenomous arthropods, initial encounter] 01-23-2023 Episodic Essential hypertension (1 source) Essential (primary) hypertension; Translations: [Essential (primary) hypertension] Onset: 01-08-2024 Chronic Inflammation; infection of eye (except that caused by tuberculosis or sexually transmitteddisease) (4 sources) Conjunctivitis of left eye; Translations: [Unspecified conjunctivitis] 04-19-2024 Episodic Nonspecific chest pain (1 source) Chest pain; Translations: [Chest pain, unspecified] Onset: 04-16-2021 Episodic Other endocrine disorders (1 source) Endocrine disorder, unspecified; Translations: [Endocrine disorder, unspecified] Onset: 06-18-2024 Episodic Residual codes; unclassified (6 sources) Obstructive sleep apnea syndrome; Translations: [Obstructive sleep apnea (adult) (pediatric)] 08-15-2022 Chronic Comment on above: AHI of 27.9 original ly, prescription BiPAP of / as of 2017 Residual codes; unclassified (2 sources) Obstructive sleep apnea (adult) (pediatric); Translations: [Obstructive sleep apnea (adult)(pediatric)] 08-15-2022 Chronic Skin and subcutaneous tissue infections (5 sources) Cellulitis; Translations: [Cellulitis, unspecified] 01-23-2023 Episodic Viral infection (1 source) Herpes zoster without complication; Translations: [Zoster without complications] 04-20-2024 Episodic Past or Other Problems Problem Classification Problem Date Documented Da te Episodic/Chronic Other screening for suspected conditions (not mental disorders or infectious disease) (8 sources) Patient encounter status; Translations: [Encounter for screening for malignant neoplasm of colon] Onset: 03-01-2010 05-19-2023 Episodic Results Test Name Value Interpretation Reference Range Facility Testosterone, Total / Freeon 06-19-2024 TESTOSTER,FREE 19.56 ng/dL Normal 5.00-21.00 [facility] Comment on above: Order Comment: N Performed By: #### L 3100.5310 #### [facility] [address] [place], [place], [id number] TESTOSTER,TOTAL 893 ng/dL Normal 264-916 [facility] Comment on above: Order Comment: N Result Comment: Adul t male reference interval is based on a population of healthy nonobese males (BMI <30) between 19 and 39 years old. Pamela et.al. JCEM 2017,102;6691-0334. PMID: [id number]. Performed By: #### L 3100.5310 #### [facility] [address] [place], [place], [id number] TESTOSTERONE,%F 2.19 Normal 1.50-4.20 [facility] Comment on above: Order Comment: N Result Comment: Perf ormed at: [address] [id number] Assisted Living Administrator: Willian Ghotra PhD, Phone: [phone] Performed at: [address] [id number] Assisted Living Administrator: Kale Helm MD, Phone: [phone] Performed By: #### L 3100.5310 #### [facility] [address] [place], [place], [address] Testosterone, Total / Freeon 04-25-2024 TESTOSTER,FREE 15.51 ng/dL Normal 5.00-21.00 [facility] Comment on above: Order Comment: Order Date: 03/19/24Order Info: 0024-1 - TESTFN Performed By: #### L 3100.5310 ####[facility] [address] [place], [address] TESTOSTER,TOTAL 562 ng/dL Normal 264-916 [facility] Comment on above: Order Comment: Order Date: 03/19/24Order Info: 0024-1 - TESTFN Result Comment: Adul t male reference interval is based on a population of healthy nonobese males (BMI <30) between 19 and 39 years old. alfredito Santiago.al. JCEM 2017,102;8166-5370. PMID: [id number]. Performed By: #### L 3100.5310 ####[facility] [address] [place], [place], [address] TESTOSTERONE,%F 2.76 Normal 1.50-4.20 [facility] Comment on above: Order Comment: Order Date: 03/19/24Order Info: 0024-1 - TESTFN Result Comment: Perf ormed at: [address] [id number] Assisted Living Administrator: Willian Ghotra PhD, Phone: [phone] Performed at: [address] [id number] Assisted Living Administrator: Kale Helm MD, Phone: [phone] Performed By: #### L 3100.5310 ####[facility] [address] [place], [address] CNOVon 04-20-2024 CNOV Office Visit (UCWSTR) ---- PETER KNOX ([id number]) 1980 M Date Time Provider Department 04/20/24 3:00 PM GREGG IBARRA [facility] During your visit today, we recorded the following information about you: Temperature Pulse Respiration Blood pressure 98.1 degrees 61/minute 16/minute 132/84 Weight 123 kg Gregg Ibarra MD 04/20/2024 4:29 PM Signed Patient presents with: Red Eye HPI: Feeling symptoms since yesterday. He was prescribed eye and ear drops at another urgent care yesterday. Positive symptoms: Comfortable rash left upper scalp, lytic irritation upper eyelid, minimal irritation left eyeball, left ear discomfort, tender bumps behind and below the left ear, very stressful week at work Negative symptoms: Fever, vision change, hearing difficulty, mouth pain PAST MEDICAL HISTORY Diagnosis Date PMH - PAST MEDICAL HISTORY OF none MEDICATIONS: Current Outpatient Medications Medication Sig testosterone cypionate (DEPO-TESTOSTERONE) 100 mg/mL injection INJECT 0.5 (ONE-HALF) OF A MILLILITER INTRAMUSCULARLY ONCE WEEKLY losartan (COZAAR) 50 mg tablet Take 50 mg by mouth once daily. No current facility-administer ed medications for this visit. ALLERGIES: ALLERGIES No Known Allergies VITALS: BP 132/84 Pulse 61 Temp 36.7 ?C (98.1 ?F) Resp 16 Wt 123 kg (271 lb 2.7 oz) SpO2 99% PHYSICAL EXAM: GEN: Pleasant, in no acute distress. HEENT: PERRL, EOMI, conjunctiva clear. Small erythematous clustered papules below the lateral left eyebrow. Erythematous papular macular rash left frontal and parietal scalp. Ears: canals clear. TMs without erythema, bulge, or effusion Sinuses: non-tender frontal sinus, non-tender maxillary sinuses Throat: moist mucous membranes, no erythema, no exudate Neck: supple, no thyromegaly, tender lymphadenopathy below the left ear HEART: regular rate, regular rhythm, no murmurs LUNGS: clear to auscultation, no wheezes or crackles, no increased WOB ASSESSMENT/PLAN: 1. Herpes zoster without complications - ICD9: 053.9, ICD10: B02.9 Left V1 shingles. - VALACYCLOVIR 1 GRAM TABLET He may discontinue antibiotic drops. See patient education reviewed. Follow up with ophthalmology with worsening eye irritation. Follow up with PCP if pain is not controlled with OTC analgesia. MD Stacey Jane Kevin J, MD 04/20/2024 3:27 PM Signed Shingles is a viral rash from prior chicken pox infection. Early antiviral medicine can reduce the length and severity of the shingles outbreak. The rash is contagious until all blisters or sores are dry. Until this avoid contact with women, unvaccinated (usually children under 1), or people with impaired immune systems who would be susceptible to hernando the chicken pox. The site of the rash may have scaring (color change) after the infection is resolved. Pain, burning, or tingling from the rash may continue for days to several months after the infection-typically a few weeks. There is a vaccine that can reduce the chance of future shingles outbreaks, but for a few years after a shingles episode it probably does not provide benefit. Allergies As of Date: 04/20/2024 (No Known Allergies) Date Reviewed: 04/20/2024 Reviewed by: Josy Elaine MA - Fully Assessed Reason for Visit: Red Eye [2672] Primary Visit Diagnosis:Herpes zoster without complications [B02.9] Order(s):valACYclov ir (VALTREX) 1 gram tabletTake 1 tablet by mouth three times a day for 7 days.Disp: 21 tabletRfl: 0 Prescriptions as of 04/20/2024 - testosterone cypionate (DEPO-TESTOSTERONE) 100 mg/mL injection INJECT 0.5 (ONE-HALF) OF A MILLILITER INTRAMUSCULARLY ONCE WEEKLY - losartan (COZAAR) 50 mg tablet Take 50 mg by mouth once daily. - valACYclovir (VALTREX) 1 gram tablet Take 1 tablet by mouth three times a day for 7 days. Problem List As Of Date 04/20/2024 Noted Resolved Special screening for malignant neoplasms, colo*03/01/2010 Other instructions from your clinician: Shingles is a viral rash from prior chicken pox infection. Early antiviral medicine can reduce the length and severity of the shingles outbreak. The rash is contagious until all blisters or sores are dry. Until this avoid contact with women, unvaccinated (usually children under 1), or people with impaired immune systems who would be susceptible to hernando the chicken pox. The site of the rash may have scaring (color change) after the infection is resolved. Pain, burning, or tingling from the rash may continue for days to several months after the infection-typically a few weeks. There is a vaccine that can reduce the chance of future shingles outbreaks, but for a few years after a shingles episode it probably does not provide benefit. Prescriptions ordered this encounter Disp Refills Start End VALACYCLOVIR 1 GRAM TABLET 21 t* 0 03 (more content not included)... Normal [facility] Testosterone Free [Mass/Vol] Ordered By: Rajiv Hopkins on 04-19-2024 Free Testosterone 15.51 ng/dL 5.00-21.00 [facility] Testosterone Free/Testostero ne.total [Mass fraction]Ordered By: Rajiv Hopkins on 04-19-2024 Percent Free Testosterone 2.76 % 1.50-4.20 [facility] Comment on above: Performed at: [facility] [id number] Director: Willian Ghotra PhD, Phone: [phone] at: - [facility] [id number] Director: Kale Helm MD, Phone: [phone] Testosterone, totalOrdered B y: Rajiv Hopkins on 04-19-2024 Testosterone [Mass/Vol] 562 ng/dL 264-869 [facility] Comment on above: Adult male reference interval is based on a population ofhealthy nonobese males (BMI <30) between 19 and 39 yearsold. alfredito Santiago.al. JCEM 2017,102;0979-0152. PMID:[id number]. Urgent Care Visit Reporton 0 04-19-2024 Urgent Care Visit Report [facility] [address], [address] [place] [address] OFFICE VISIT Date of Service: 04/19/24 MR#: [id number] Acct: [id number] Name: GUSTAVO KNOX Rep #: [id number] : 1980 Provider: WILMER Yanes Age/Sex: 43/M Location: [facility] Status: Signed Intake Vital Signs 07/03/23 07:41 04/19/24 17:07 Height 5 ft 11 in BP 122/60 H Blood Pressure Location Lt brachial Position Sitting Respiration 15 Pulse 58 L Pulse Source NIBP Temp 98.2 F Temp Source Oral Pulse Oximetry (%) 96 Oxygen Delivery Method room air Intake Visit Reasons: ITCHY EAR, EAR PAIN Chief Complaint: LEFT EAR PAIN, LEFT EYE ITCH 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 LEFT EYE ITCH, DENIES TEARING/CRUSTING/RE DNESS. [facility] Medical History (Updated 04/19/24 @ 17:18 by WILMER Yun) Wears glasses Non-smoker BiPAP (biphasic positive airway pressure) dependence Sleep apnea History of irregular heartbeat HTN (hypertension) Family hx of colon cancer Hx of colonic polyp Acute bronchitis, unspecified Surgical History (Updated 05/19/23 @ 11:09 by Rohini Hernandez) Hx of colonoscopy Social History (Updated 05/19/23 @ 11:09 by Rohini Hernandez) household members: spouse and children current occupational status: employed current occupation: [employer] Smoking Status: Never smoker alcohol intake: never substance use type: does not use HPI HPI Chief Complaint: LEFT EAR PAIN, LEFT EYE ITCH Details: GUSTAVO KNOX, is a 43 M who presents to the office today for complaint of left eye itching and redness starting today. Patient states the eye was itching for the past 2 days and then these are with redness and drainage today. He denies any eye pain or vision change. No injury to the eye. No other associated symptoms or alleviating/Agri factors. ROS Const Constitutional: No other (As above) Exam Const General: cooperative and healthy appearing [facility] Head: normocephalic and atraumatic Ears: hearing grossly normal bilaterally Face and sinus: face symmetric Eyes General: appearance normal, both eyes and all related structures Visual Soto: normal visual soto by confrontation Alignment and Position: alignment normal Periorbital: periorbital findings normal Eyelids: eyelids normal Conjunctivae: conjunctival abnormality left conjunctival injection diffuse and discharge purulent Pupils: PERRL Skin General: no rashes or lesions noted Psych Appearance: grossly normal Coding Level of Care Code Off vis,est,level 3 Diagnoses Conjunctivitis, left eye H10.9 Assessment and Plan Assessment and Plan (1) Conjunctivitis, left eye: Status: Acute Medications: New polymyxin B sulf-trimethoprim 10,000 unit- 1 mg/mL while awake; do not exceed 6 doses in 24 hours 1 drp ophthalmic (eye) Q3H 10 mL 0RF 7 days Plan Polytrim as prescribed today. Encouraged to get plenty of rest, use a warm compress for comfort. Patient also educated on other symptomatic management techniques. To be seen in 7-10 days if no improvement; sooner if worsening of symptoms. Patient advised of potential red flags and when appropriate to report to the ED. Patient verbalized understanding and agreement with all the above. Clinical Quality Measures Falls Risk Screening/Assistive Devices Have you fallen in the past year?: No 04/19/24 1719 Date Torsten Roper Signature: Date (if applicable) CC: Normal [facility] Testosterone, Total / Freeon 01-13-2024 TESTOSTER,FREE 20.97 ng/dL Normal 5.00-21.00 [facility] Comment on above: Order Comment: Order Date: 12/21/23Order Info: 0024-1 - TESTFN Performed By: #### L 3100.5310 ####[facility] [address] [place], [place], [address] TESTOSTER,TOTAL 497 ng/dL Normal 264-916 [facility] Comment on above: Order Comment: Order Date: 12/21/23Order Info: 0024-1 - TESTFN Result Comment: Adul t male reference interval is based on a population of healthy nonobese males (BMI <30) between 19 and 39 years old. alfredito Santiago.al. JCEM 2017,102;9990-8554. PMID: [id number]. Performed By: #### L 3100.5310 ####[facility] [address] [place], [place], [id number] TESTOSTERONE,%F 4.22 High 1.50-4.20 [facility] Comment on above: Order Comment: Order Date: 12/21/23Order Info: 0024-1 - TESTFN Result Comment: Perf ormed at: [facility] [id number] Assisted Living Administrator: Willian Ghotra PhD, Phone: [phone] Performed at: [facility] [address] [id number] Assisted Living Administrator: Kale Helm MD, Phone: [phone] Performed By: #### L 3100.5310 ####[facility] [address] [place], [place], [address] Testosterone Free [Mass/Vol] Ordered By: Rajiv Hopkins on 01-05-2024 Free Testosterone 20.97 ng/dL 5.00-21.00 [facility] Testosterone Free/Testostero ne.total [Mass fraction]Ordered By: Rajiv Hopkins on 01-05-2024 Percent Free Testosterone 4.22 % High 1.50-4.20 [facility] Comment on above: Performed at: [employer] [facility] [address] [id number] Director: Willian Ghotra PhD, Phone: [phone] at: [facility] [address] [id number] Director: Kale Helm MD, Phone: [phone] Testosterone, totalOrdered B y: Rajiv Hopkins on 01-05-2024 Testosterone [Mass/Vol] 497 ng/dL 264-916 [facility] Comment on above: Adult male reference interval is based on a population ofhealthy nonobese males (BMI <30) between 19 and 39 yearsold. Pamela, et.al. JCEM 2017,102;3843-7658. PMID:[id number]. Testosterone, Total / Freeon 12-22-2023 TESTOSTER,FREE 2.63 ng/dL Abnormal 5.00-21.00 [facility] Comment on above: Order Comment: Order Date: 12/12/23 Order Info: 0024-1 - TESTF N Performed By: #### L 501.9520, L3100.5310 #### [facility] [address] [place], [place], [address] TESTOSTER,TOTAL 90 ng/dL Low 264-916 [facility] Comment on above: Order Comment: Order Date: 12/12/23 Order Info: 0024-1 - TESTF N Result Comment: Adul t male reference interval is based on a population of healthy nonobese males (BMI <30) between 19 and 39 years old. Travison, et.al. JCEM 2017,102;2470-5932. PMID: [id number]. Performed By: #### L 501.9520, L3100.5310 #### [facility] [address] [place], [place], [address] TESTOSTERONE,%F 2.92 Normal 1.50-4.20 [facility] Comment on above: Order Comment: Order Date: 12/12/23 Order Info: 0024-1 - TESTF N Result Comment: Perf ormed at: - [facility] [address] [id number] Assisted Living Administrator: Willian Ghotra PhD, Phone: [phone] Performed at: [facility] [address] [id number] Assisted Living Administrator: Kale Helm MD, Phone: [phone] Performed By: #### L 501.9520, L3100.5310 #### [facility] [address] [place], [address] Testosterone, Serum Totalon 12-18-2023 Testosterone [Mass/Vol] 85.17 ng/dL Normal [facility] Comment on above: Order Comment: Order Date: 12/07/23 Order Info: 2986-8 - BABAR Result Comment: CENT RAL 90% REFERENCE RANGES MALE AGE <50 197.44 - 669.58 ng/dL MALE AGE > or = 50 187.72 - 684.19 ng/dL FEMALE AGE <50 8.38 - 35.01 ng/dL FEMALE AGE > or = 50 <7.00 - 35.92 ng/dL Effective as of 09/15/20 Performed By: #### L 500.4050, L100.0500, L500.4100, L509.3000 #### [facility] [address] [place], [address] CBC-Complete Blood Cnt No Di ffon 12-16-2023 Erythrocyte distribution width (RBC) [Ratio] 13.7 % Normal 11.6-14.6 [facility] Comment on above: Order Comment: Order Date: 12/07/23 Order Info: [id number] - CBC Performed By: #### L 500.4050, L100.0500, L500.4100, L509.3000 #### [facility] [address] [place], [address] Hematocrit (Bld) [Volume fraction] 46.7 % Normal 40-54 [facility] Comment on above: Order Comment: Order Date: 12/07/23 Order Info: [id number] - CBC Performed By: #### L 500.4050, L100.0500, L500.4100, L509.3000 #### [facility] [address] [place], [address] Hemoglobin (Bld) [Mass/Vol] 14.6 g/dL Normal 13.0-16.5 [facility] Comment on above: Order Comment: Order Date: 12/07/23 Order Info: [id number] - CBC Performed By: #### L 500.4050, L100.0500, L500.4100, L509.3000 #### [facility] [address] [place], [address] MCH (RBC) [Entitic mass] 24.7 pg Low 27.0-32.0 [facility] Comment on above: Order Comment: Order Date: 12/07/23 Order Info: [id number] - CBC Performed By: #### L 500.4050, L100.0500, L500.4100, L509.3000 #### [facility] [address] [place], [address] MCHC (RBC) [Mass/Vol] 31.3 g/dL Low 32-36 [facility] Comment on above: Order Comment: Order Date: 12/07/23 Order Info: [id number] - CBC Performed By: #### L 500.4050, L100.0500, L500.4100, L509.3000 #### [facility] [address] [place], [address] MCV (RBC) [Entitic vol] 79.2 fL Low 80-94 [facility] Comment on above: Order Comment: Order Date: 12/07/23 Order Info: [id number] - CBC Performed By: #### L 500.4050, L100.0500, L500.4100, L509.3000 #### [facility] [address] [place], [address] Platelet mean volume (Bld) [Entitic vol] 10.7 fL Normal 6.2-12.0 [facility] Comment on above: Order Comment: Order Date: 12/07/23 Order Info: [id number] - CBC Performed By: #### L 500.4050, L100.0500, L500.4100, L509.3000 #### [facility] [address] [place], [address] Platelets (Bld) [#/Vol] 192 10*3/uL Normal 150-450 [facility] Comment on above: Order Comment: Order Date: 12/07/23 Order Info: [id number] - CBC Performed By: #### L 500.4050, L100.0500, L500.4100, L509.3000 #### [facility] [address] [place], [address] RBC (Bld) [#/Vol] 5.90 10*6/uL Normal 4.6-6.2 [facility] Comment on above: Order Comment: Order Date: 12/07/23 Order Info: [id number] - CBC Performed By: #### L 500.4050, L100.0500, L500.4100, L509.3000 #### [facility] [address] [place], [address] RDW SD 39.6 fl Normal 35.1-43.9 [facility] Comment on above: Order Comment: Order Date: 12/07/23 Order Info: [id number] - CBC Performed By: #### L 500.4050, L100.0500, L500.4100, L509.3000 #### [facility] [address] [place], [address] WBC (Bld) [#/Vol] 5.7 10*3/uL Normal 4.4-11.0 [facility] Comment on above: Order Comment: Order Date: 12/07/23 Order Info: [id number] - CBC Performed By: #### L 500.4050, L100.0500, L500.4100, L509.3000 #### [facility] [address] [place], [address] Comprehensive Metabolic Prof ilon 12-16-2023 Albumin [Mass/Vol] 3.7 g/dL Normal 3.2-5.0 [facility] Comment on above: Order Comment: Order Date: 12/07/23 Order Info: 0786-1 - CMP Order Info: [id number] - LIPID Order Date: 12/12/23 Order Info: 3016-3 - TSH Performed By: #### L 500.4050, L100.0500, L500.4100, L509.3000 #### [facility] [address] [place], [address] Albumin/Globulin [Mass ratio] 1.0 {ratio} Normal 0.9-2.4 [facility] Comment on above: Order Comment: Order Date: 12/07/23 Order Info: 07 - CMP Order Info: - LIPID Order Date: 12/12/23 Order Info: 3 - TSH Performed By: #### L 500.4050, L100.0500, L500.4100, L509.3000 #### [facility] [address] [place], [address] ALK P 81 U/L Normal 45-117 [facility] Comment on above: Order Comment: Order Date: 12/07/23 Order Info: 0786- - CMP Order Info: [id number] - LIPID Order Date: 12/12/23 Order Info: 3016-3 - TSH Performed By: #### L 500.4050, L100.0500, L500.4100, L509.3000 #### [facility] [address] [place], [address] ALT [Catalytic activity/Vol] 59 U/L Normal 16-61 [facility] Comment on above: Order Comment: Order Date: 12/07/23 Order Info: 0786-1 - CMP Order Info: [id number] - LIPID Order Date: 12/12/23 Order Info: 3016-3 - TSH Performed By: #### L 500.4050, L100.0500, L500.4100, L509.3000 #### [facility] [address] [place], [address] AST [Catalytic activity/Vol] 28 U/L Normal 15-37 [facility] Comment on above: Order Comment: Order Date: 12/07/23 Order Info: 0786-1 - CMP Order Info: [id number] - LIPID Order Date: 12/12/23 Order Info: 3016-3 - TSH Performed By: #### L 500.4050, L100.0500, L500.4100, L509.3000 #### [facility] [address] [place], [address] Bilirubin [Mass/Vol] 0.50 mg/dL Normal 0.20-1.[address] [facility] Comment on above: Order Comment: Order Date: 12/07/23 Order Info: 785- - CMP Order Info: - LIPID Order Date: 12/12/23 Order Info: 3016-3 - TSH Result Comment: For patients on eltrombopag therapy, use of Dimension Crawford TBIL is not recommended. Performed By: #### L 500.4050, L100.0500, L500.4100, L509.3000 #### [facility] [address] [place], [address] BUN/CRE 17.3 RATIO Normal 10-20 [facility] Comment on above: Order Comment: Order Date: 12/07/23 Order Info: 785- - CMP Order Info: [id number] - LIPID Order Date: 12/12/23 Order Info: 3016-3 - TSH Performed By: #### L 500.4050, L100.0500, L500.4100, L509.3000 #### [facility] [address] [place], [address] CA,Total 8.9 mg/dL Normal 8.5-10.1 [facility] Comment on above: Order Comment: Order Date: 12/07/23 Order Info: 07-1 - CMP Order Info: [id number] - LIPID Order Date: 12/12/23 Order Info: 3016-3 - TSH Performed By: #### L 500.4050, L100.0500, L500.4100, L509.3000 #### [facility] [address] [place], [address] Chloride [Moles/Vol] 114 mmol/L High 98-[address] [facility] Comment on above: Order Comment: Order Date: 12/07/23 Order Info: 0786-1 - CMP Order Info: [id number] - LIPID Order Date: 12/12/23 Order Info: 3015-3 - TSH Performed By: #### L 500.4050, L100.0500, L500.4100, L509.3000 #### [facility] [address] [place], [address] CO2 [Moles/Vol] 26.0 mmol/L Normal 21.0-32.0 [facility] Comment on above: Order Comment: Order Date: 12/07/23 Order Info: 0786-1 - CMP Order Info: [id number] - LIPID Order Date: 12/12/23 Order Info: 3016 - TSH Performed By: #### L 500.4050, L100.0500, L500.4100, L509.3000 #### [facility] [address] [place], [address] Creatinine [Mass/Vol] 1.10 mg/dL Normal 0.70-1.30 [facility] Comment on above: Order Comment: Order Date: 12/07/23 Order Info: 0786-1 - CMP Order Info: [id number] - LIPID Order Date: 12/12/23 Order Info: 301-3 - TSH Result Comment: The validity of the calculated GFR GFRAA in patients over 70 years has not been determined. Clinical correlation is essential. Performed By: #### L 500.4050, L100.0500, L500.4100, L509.3000 #### [facility] [address] [place], [place], [address] EST GFR - AA 93 mL/min Normal >60 [facility] Comment on above: Order Comment: Order Date: 12/07/23 Order Info: 785-1 - CMP Order Info: [id number] - LIPID Order Date: 12/12/23 Order Info: 3015-3 - TSH Result Comment: Afri can [place] GFR Calc Performed By: #### L 500.4050, L100.0500, L500.4100, L509.3000 #### [facility] [address] [place], [address] GAP 2 Low 5-15 [facility] Comment on above: Order Comment: Order Date: 12/07/23 Order Info: 785- - CMP Order Info: - LIPID Order Date: 12/12/23 Order Info: 3 - TSH Performed By: #### L 500.4050, L100.0500, L500.4100, L509.3000 #### [facility] [address] [place], [address] GFR/1.73 sq M.predicted among non-blacks MDRD (S/P/Bld) [Vol rate/Area] 77 mL/min/{1.73_m2} Normal >60 [facility] Comment on above: Order Comment: Order Date: 12/07/23 Order Info: 785-02 - CMP Order Info: [id number] - LIPID Order Date: 12/12/23 Order Info: 3015-3 - TSH Result Comment: Non- GFR Calc Performed By: #### L 500.4050, L100.0500, L500.4100, L509.3000 #### [facility] [address] [place], [address] Globulin (S) [Mass/Vol] 3.6 g/dL Normal 2.2-4.2 [facility] Comment on above: Order Comment: Order Date: 12/07/23 Order Info: 07- - CMP Order Info: - LIPID Order Date: 12/12/23 Order Info: 3015-3 - TSH Performed By: #### L 500.4050, L100.0500, L500.4100, L509.3000 #### [facility] [address] [place], [address] Glucose [Mass/Vol] 97 mg/dL Normal 74-106 [facility] Comment on above: Order Comment: Order Date: 12/07/23 Order Info: 0786-1 - CMP Order Info: [id number] - LIPID Order Date: 12/12/23 Order Info: 3016-3 - TSH Performed By: #### L 500.4050, L100.0500, L500.4100, L509.3000 #### [facility] [address] [place], [address] Potassium [Moles/Vol] 4.3 mmol/L Normal 3.5-5.1 [facility] Comment on above: Order Comment: Order Date: 12/07/23 Order Info: 0786- - CMP Order Info: [id number] - LIPID Order Date: 12/12/23 Order Info: 3016-3 - TSH Performed By: #### L 500.4050, L100.0500, L500.4100, L509.3000 #### [facility] [address] [place], [address] Sodium [Moles/Vol] 142 mmol/L Normal 136-145 [facility] Comment on above: Order Comment: Order Date: 12/07/23 Order Info: 0786-1 - CMP Order Info: [id number] - LIPID Order Date: 12/12/23 Order Info: 3016-3 - TSH Performed By: #### L 500.4050, L100.0500, L500.4100, L509.3000 #### [facility] [address] [place], [address] T PROT 7.3 g/dL Normal 6.4-8.2 [facility] Comment on above: Order Comment: Order Date: 12/07/23 Order Info: 0786-1 - CMP Order Info: [id number] - LIPID Order Date: 12/12/23 Order Info: 6-3 - TSH Performed By: #### L 500.4050, L100.0500, L500.4100, L509.3000 #### [facility] [address] [place], [address] Urea nitrogen [Mass/Vol] 19 mg/dL High 7-18 [facility] Comment on above: Order Comment: Order Date: 12/07/23 Order Info: 07- - CMP Order Info: [id number] - LIPID Order Date: 12/12/23 Order Info: 3015-3 - TSH Performed By: #### L 500.4050, L100.0500, L500.4100, L509.3000 #### [facility] [address] [place], [address] Lipid Profileon 12-16-2023 Cholesterol [Mass/Vol] 158 mg/dL Normal 200 [facility] Comment on above: Order Comment: Order Date: 12/07/23 Order Info: 07 - CMP Order Info: [id number] - LIPID Order Date: 12/12/23 Order Info: 3015-3 - TSH Result Comment: <200 mg/dL Desirable 200-240 mg/dL Borderline >240 mg/dL High Risk Performed By: #### L 500.4050, L100.0500, L500.4100, L509.3000 #### [facility] [address] [place], [address] Cholesterol in HDL [Mass/Vol] 37 mg/dL Low [facility] Comment on above: Order Comment: Order Date: 12/07/23 Order Info: 0786- - CMP Order Info: [id number] - LIPID Order Date: 12/12/23 Order Info: 3015-3 - TSH Result Comment: The drugs N-Acetylcysteine and Metamizole may falsely depress this assay. Reference Range HDL <40 mg/dL Low HDL Cholesterol HDL >or= 60 mg/dL High HDL Cholesterol Performed By: #### L 500.4050, L100.0500, L500.4100, L509.3000 #### [facility] [address] [place], [address] Cholesterol in LDL [Mass/Vol] 84 mg/dL Normal 0-130 [facility] Comment on above: Order Comment: Order Date: 12/07/23 Order Info: 0786-1 - CMP Order Info: [id number] - LIPID Order Date: 12/12/23 Order Info: 3016-3 - TSH Performed By: #### L 500.4050, L100.0500, L500.4100, L509.3000 #### [facility] [address] [place], [address] Cholesterol in VLDL [Mass/Vol] 37 mg/dL Normal 5-40 [facility] Comment on above: Order Comment: Order Date: 12/07/23 Order Info: 0786-1 - CMP Order Info: [id number] - LIPID Order Date: 12/12/23 Order Info: 3016-3 - TSH Performed By: #### L 500.4050, L100.0500, L500.4100, L509.3000 #### [facility] [address] [place], [address] Triglyceride [Mass/Vol] 184 mg/dL Normal [facility] Comment on above: Order Comment: Order Date: 12/07/23 Order Info: 0786-1 - CMP Order Info: [id number] - LIPID Order Date: 12/12/23 Order Info: 3016-3 - TSH Result Comment: The drugs N-Acetylcysteine and Metamizole may falsely depress this assay. Serum Triglycerides Reference Interval Normal <150 mg/dL Borderline high 150 - 199 mg/dL High 200 - 499 mg/dL Very High > or = 500 mg/dL Performed By: #### L 500.4050, L100.0500, L500.4100, L509.3000 #### [facility] [address] [place], [address] Thyroid Stim Hormone (TSH)on 12-16-2023 TSH 1.520 uIU/mL Normal 0.358-3.740 [facility] Comment on above: Order Comment: Order Date: 12/07/23 Order Info: 0786-1 - CMP Order Info: [id number] - LIPID Order Date: 12/12/23 Order Info: 3016-3 - TSH Performed By: #### L 501.9520, L3100.5310 #### [facility] [address] [facility] [place], [address] PSA,Total - Annual Screenon 07-31-2023 PSA,TOT SCREEN 0.33 ng/mL Normal 0.00-4.00 [facility] Comment on above: Result Comment: This test was performed using the TPSA assay method for the [employer] chemistry system. Values obtained with different assay methods cannot be used interchangably. When changing PSA assays in the course of monitoring a patient, additional sequential testing should be carried out to confirm baseline values. Performed By: #### L 501.9910 ####[facility] [id number] [place], [address] Colonoscopy Reporton 024 Colonoscopy Report [facility] Medical Records Department [address] [place] [address] Colonoscopy Report MR#: [id number] Acct: [id number] Name: GUSTAVO KNOX Rep #: [id number] : 1980 42 From: Moise Live DO PCP: Dr. Catalina Polk MD Status:[facility] Patient Name: Gustavo Knox Procedure Date: 07/03/2023 8:38 AM Date of : 1980 Age: 42 Procedure: Colonoscopy Indications: Screening for colorectal malignant neoplasm Providers: Moise Live DO Medicines: Monitored Anesthesia Care Patient Profile: This is a 42 year old male. Refer to note in patient chart for documentation of history and physical. Last Colonoscopy: date unknown. Unable to locate last colonoscopy report. Complications: No immediate complications. Procedure: Pre-Anesthesia Assessment: - Prior to the procedure, a History and Physical was performed, and patient medications and allergies were reviewed. The patient is competent. The risks and benefits of the procedure and the sedation options and risks were discussed with the patient. All questions were answered and informed consent was obtained. Patient identification and proposed procedure were verified by the physician in the pre-procedure area. Mental Status Examination: alert and oriented. Airway Examination: normal oropharyngeal airway and neck mobility. Respiratory Examination: clear to auscultation. CV Examination: normal. Prophylactic Antibiotics: The patient does not require prophylactic antibiotics. Prior Anticoagulants: The patient has taken no anticoagulant or antiplatelet agents. ASA Grade Assessment: III - A patient with severe systemic disease. After reviewing the risks and benefits, the patient was deemed in satisfactory condition to undergo the procedure. The anesthesia plan was to use monitored anesthesia care (MAC). Immediately prior to administration of medications, the patient was re-assessed for adequacy to receive sedatives. The heart rate, respiratory rate, oxygen saturations, blood pressure, adequacy of pulmonary ventilation, and response to care were monitored throughout the procedure. The physical status of the patient was re-assessed after the procedure. After I obtained informed consent, the scope was passed under direct vision. Throughout the procedure, the patient's blood pressure, pulse, and oxygen saturations were monitored continuously. The Colonoscope was introduced through the anus and advanced to the cecum, identified by appendiceal orifice and ileocecal valve. The colonoscopy was performed without difficulty. The patient tolerated the procedure well. The quality of the bowel preparation was adequate. The ileocecal valve, appendiceal orifice, and rectum were photographed. Scope In: 8:44:16 AM Scope Withdrawal Time 0 hours 8 minutes 5 seconds Scope Out: 8:55:47 AM Total Procedure Duration Time 0 hours 11 minutes 31 seconds Findings: The perianal and digital rectal examinations were normal. Two sessile polyps were found in the sigmoid colon and cecum. The polyps were 1 to 2 mm in size. These polyps were removed with a hot snare. Resection and retrieval were complete. Verification of patient identification for the specimen was done. Estimated blood loss was minimal. The exam was otherwise without abnormality on direct and retroflexion views. Impression: - Two 1 to 2 mm polyps in the sigmoid colon and in the cecum, removed with a hot snare. Resected and retrieved. - The examination was otherwise normal on direct and retroflexion views. Recommendation: - Discharge patient to home. - Resume previous diet. - Continue present medications. - Await pathology results. - Repeat colonoscopy in 3 years for surveillance. Procedure Code(s): --- Professional --- 14944, Colonoscopy, flexible; with removal of tumor(s), polyp(s), or other lesion(s) by snare technique CPT copyright 2021 [employer]. All rights reserved. The codes documented in this report are preliminary and upon accountant controller review may be revised to meet current compliance requirements. Moise Live DO 07/03/2023 8:59:41 AM This report has been signed electronically. Number of Addenda: 0 Note Initiated On: 07/03/2023 8:38 AM 07/03/23 09 Date Mosie Live DO Cosigner Signature: Date (if indicated) CC: Dr. Catalina Polk MD; Moise Live DO Date Dictated: 07/03/2338 Date Transcribed: Supervisor Veneer: ANIL Signed Normal [facility] Surgery Specimen Level Keyanna 07-03-2023 Surgery Specimen Level IV Patient Age/Sex Location Account Attending Physician GUSTAVO KNOX/M EN [id number] Moise Live DO Specimen: Received: 07/03/23 Status: MARGY Tolbert Num: [id number] Spec Type: COLON BX Subm Dr: Moise Live DO HEADER OPERATION: Colonoscopy with polypectomy PRE-OP DIAGNOSIS: Encounter for screening for malignant neoplasm of colon TISSUE SUBMITTED: A- Polyp of cecum, B- Polyp of sigmoid MICROSCOPIC DIAGNOSIS A. Cecal polyp, biopsy: Fragments of tubular adenoma. B. Sigmoid polyp, biopsy: Fragments of tubular adenoma. / 07/05/2023 MICROSCOPIC DESCRIPTION Slides are reviewed. GROSS DESCRIPTION A. Received in fixative is one container labeled with the patient's name and designated Cecum polyp. The specimen consists of multiple irregular fragments of light bird soft tissue that in aggregate measure 2.0 x 1.0 x 0.1 cm. The specimen is totally submitted in one cassette. B. Received in fixative is one container labeled with the patient's name and designated Sigmoid polyp. The specimen consists of a polypoid fragment of light bird soft tissue measuring 1.0 x 0.7 x 0.3cm. The specimen is bisected and totally submitted in one cassette. / 07/03/2023 TC:5 CPT:19411f9 Patient Age/Sex Location Account Attending Physician GUSTAVO KNOX 42/M EN [id number] Moise Live DO Signed (signatur e on file) Dr. Almas Marie DO 07/05/[address] [facility] Comment on above: Performed By: #### P SUIV ####[facility] [id number] [place], [place], [address] Absolute lymphocyte countOrd ered By: Catalina Polk on 04-22-2023 Lymphocytes Auto (Unsp spec) [#/Vol] 1.72 10*3/uL 0.83-4.51 [facility] Automated lymphocyte count a s percentage of total leukocytesOrdered By: Catalina Polk on 04-22-2023 Lymphocytes/100 WBC Auto (Unsp spec) 36.6 % 19-41 [facility] Basophil percentageOrdered B y: Catalina Polk on 04-22-2023 Basophils/100 WBC (Bld) 0.4 % 0-1 [facility] Chloride [Moles/Vol] 112 mmol/L 98-[address] [facility] Cholesterol [Mass/Vol] 162 mg/dL <200 [facility] Comment on above: <200 mg/dL Desirable 200-240 mg/dL Borderline >240 mg/dL High Risk Eosinophils/100 WBC (Bld) 3.6 % 0-5 [facility] Glucose [Mass/Vol] 85 mg/dL 74-106 [facility] Hemoglobin (Bld) [Mass/Vol] 15.2 g/dL 13.0-16.5 [facility] Monocytes/100 WBC (Bld) 15.7 % 0-10 [facility] Neutrophils (Bld) [#/Vol] 2.0 10*3/uL 2.0-7.7 [facility] Neutrophils/100 WBC (Bld) 43.5 % 47-70 [facility] Potassium [Moles/Vol] 4.1 mmol/L 3.5-5.1 [facility] Sodium [Moles/Vol] 143 mmol/L 136-145 [facility] Testosterone [Mass/Vol] 435.88 ng/dL [facility] Comment on above: CENTRAL 90% REFERENC E RANGES MALE AGE <50 197.44 - 669.58 ng/dL MALE AGE > or = 50 187.72 - 684.19 ng/dL FEMALE AGE <50 8.38 - 35.01 ng/dL FEMALE AGE > or = 50 <7.00 - 35.92 ng/dL Effective as of 09/15/20 Triglyceride [Mass/Vol] 60 mg/dL <199 [facility] Comment on above: The drugs N-Acetylcy steine and Metamizole may falsely depress this assay.Serum Triglycerides Reference Interval Normal <150 mg/dL Borderline high 150 - 199 mg/dL High 200 - 499 mg/dL Very High > or = 500 mg/dL WBC (Bld) [#/Vol] 4.7 10*3/uL 4.4-11.0 [facility] Determination of erythrocyte mean corpuscular volume (MCV)Ordered By: Catalina Polk on 04-22-2023 MCV (RBC) [Entitic vol] 84.1 fL 80-94 [facility] Erythrocyte distribution wid th ratioOrdered By: Catalina Polk on 04-22-2023 Erythrocyte distribution width (RBC) [Ratio] 12.4 % 11.6-14.6 [facility] Erythrocyte distribution wid th standard deviationOrdered By: Catalina Polk on 04-22-2023 Erythrocyte distribution width (RBC) [Entitic vol] 37.5 fL 35.1-43.9 [facility] Hematocrit Auto (Bld) [Volum e fraction]Ordered By: Catalina Polk on 04-22-2023 Hematocrit (Bld) [Volume fraction] 46.6 % 40-54 [facility] Immature granulocytes/100 WB C Auto (Bld)Ordered By: Catalina Polk on 04-22-2023 Immature granulocytes/100 WBC (Bld) 0.200 % 0.0-0.9 [facility] Comment on above: IG% - Immature Granu locytes (promyelocytes, myelocytes and metamyelocytes) > 1% indicates that a LEFT SHIFT is Present. Laboratory - Chemistry and C hemistry - challengeOrdered By: Catalina Polk on 04-22-2023 Cholesterol in HDL [Mass/Vol] 46 mg/dL >40 [facility] Comment on above: The drugs N-Acetylcy steine and Metamizole may falsely depress this assay. Reference Range HDL <40 mg/dL Low HDL Cholesterol HDL >or= 60 mg/dL High HDL Cholesterol Cholesterol in LDL [Mass/Vol] 104 mg/dL 0-130 [facility] CO2 [Moles/Vol] 27.0 mmol/L 21.0-32.0 [facility] Urea nitrogen/Creatinine [Mass ratio] 17.9 mg/mg 10-20 [facility] - Hematology and Cell countsOrdered By: Catalina Polk on 04-22-2023 MCH (RBC) [Entitic mass] 27.4 pg 27.0-32.0 [facility] MCHC (RBC) [Mass/Vol] 32.6 g/dL 32-36 [facility] Nucleated RBC/100 WBC (Bld) [Ratio] 0 % 0-5 [facility] Platelet mean volume (Bld) [Entitic vol] 10.9 fL 6.2-12.0 [facility] Platelets (Bld) [#/Vol] 197 10*3/uL 150-450 [facility] No Panel InformationOrdered By: Catalina Polk on 04-22-2023 Estimated GFR (MDRD) Amer 91 mL/min >60 [facility] Comment on above: GFR Calc Estimated GFR (MDRD) Non-Af Amer 76 mL/min >60 [facility] Comment on above: Non- GFR Calc Urine Microalbumin/Creatinin e Ratio 8.7 mg/g CRE <30 [facility] VLDL Cholesterol 12 mg/dL 5-40 [facility] [facility] RBC Auto (Bld) [#/Vol]Ordere d By: Catalina Polk on 04-22-2023 RBC (Bld) [#/Vol] 5.54 10*6/uL 4.6-6.2 [facility] Serum or plasma calcium rosalio urement (mass/volume)Ordered By: Catalina Polk on 04-22-2023 Calcium [Mass/Vol] 9.5 mg/dL 8.5-10.1 [facility] Serum or plasma creatinine m easurement (mass/volume)Ordered By: Catalina Polk on 04-22-2023 Creatinine [Mass/Vol] 1.12 mg/dL 0.70-1.30 [facility] Comment on above: The validity of the calculated GFR & GFRAA in patients over 70 years has not been determined. Clinical correlation is essential. Serum or plasma urea nitroge n measurement (mass/volume)Ordered By: Catalina Polk on 04-22-2023 Urea nitrogen [Mass/Vol] 20 mg/dL 7-18 [facility] Thin prep Papanicolaou smear with manual screeningOrdered By: Catalina Polk on 04-22-2023 Thin prep Papanicolaou smear with manual screening 4 5-15 [facility] Thin prep Papanicolaou smear with manual screening 19.1 mg/L NO RANGE EST. [facility] Urine creatinine measurement (mass/volume)Ordered By: Catalina Polk on 04-22-2023 Creatinine (U) [Mass/Vol] 220.00 mg/dL NO RANGE EST. [facility] Basophil percentageOrdered B y: Kacy Valenzuela on 11-09-2022 Testosterone [Mass/Vol] 252 ng/dL [phone] [facility] Comment on above: Adult male reference interval is based on a population ofhealthy nonobese males (BMI <30) between 19 and 39 yearsold. Pamela et.al. JCEM 2017,102;8431-1463. PMID:[id number]. Free testosterone percentage Ordered By: Kacy Valenzuela on 11-09-2022 Testosterone Free/Testosterone.tota l [Mass fraction] 2.66 % 1.50-4.20 [facility] Comment on above: Performed at: [address] [id number] Director: Willian Ghotra PhD, Phone: [phone] at: [facility] Lab[address] [id number] Director: Kale Helm MD, Phone: [phone] Serum or plasma testosterone free measurement (mass/volume)Ordered By: Kacy Valenzuela on 11-09-2022 Testosterone Free [Mass/Vol] 6.70 ng/dL 5.00-21.00 [facility] Absolute lymphocyte countOrd ered By: Catalina Polk on 07-29-2022 Lymphocytes Auto (Unsp spec) [#/Vol] 1.99 10*3/uL 0.83-4.51 [facility] Basophil percentageOrdered B y: Catalina Polk on 07-29-2022 Basophils/100 WBC (Bld) 0.3 % 0-1 [facility] Cholesterol [Mass/Vol] 153 mg/dL <200 [facility] Comment on above: <200 mg/dL Desirable 200-240 mg/dL Borderline >240 mg/dL High Risk Eosinophils/100 WBC (Bld) 3.0 % 0-5 [facility] Neutrophils (Bld) [#/Vol] 3.0 10*3/uL 2.0-7.7 [facility] Neutrophils/100 WBC (Bld) 49.0 % 47-70 [facility] Testosterone [Mass/Vol] 763.42 ng/dL [facility] Comment on above: CENTRAL 90% REFERENC E RANGES MALE AGE <50 197.44 - 669.58 ng/dL MALE AGE > or = 50 187.72 - 684.19 ng/dL FEMALE AGE <50 8.38 - 35.01 ng/dL FEMALE AGE > or = 50 <7.00 - 35.92 ng/dL Effective as of 09/15/20 Triglyceride [Mass/Vol] 137 mg/dL <199 [facility] Comment on above: The drugs N-Acetylcy steine and Metamizole may falsely depress this assay.Serum Triglycerides Reference Interval Normal <150 mg/dL Borderline high 150 - 199 mg/dL High 200 - 499 mg/dL Very High > or = 500 mg/dL WBC (Bld) [#/Vol] 6.1 10*3/uL 4.4-11.0 [facility] Blood erythrocytes count (nu mber/volume)Ordered By: Catalina Polk on 07-29-2022 RBC (Bld) [#/Vol] 6.30 10*6/uL 4.6-6.2 [facility] Blood hemoglobin measurement (mass/volume)Ordered By: Catalina Polk on 07-29-2022 Hemoglobin (Bld) [Mass/Vol] 16.3 g/dL 13.0-16.5 [facility] Blood lymphocytes/100 leukoc ytesOrdered By: Catalina Polk on 07-29-2022 Lymphocytes/100 WBC (Bld) 32.7 % 19-41 [facility] Blood monocytes/100 leukocyt esOrdered By: Catalina Polk on 07-29-2022 Monocytes/100 WBC (Bld) 14.8 % 0-10 [facility] Blood platelet mean volumeOr dered By: Catalina Polk on 07-29-2022 Platelet mean volume (Bld) [Entitic vol] 11.0 fL 6.2-12.0 [facility] Determination of erythrocyte mean corpuscular volume (MCV)Ordered By: Catalina Polk on 07-29-2022 MCV (RBC) [Entitic vol] 81.7 fL 80-94 [facility] Hematocrit Auto (Bld) [Volum e fraction]Ordered By: Catalina Polk on 07-29-2022 Hematocrit (Bld) [Volume fraction] 51.5 % 40-54 [facility] Laboratory - Hematology and Cell countsOrdered By: Catalina Polk on 07-29-2022 Erythrocyte distribution width (RBC) [Entitic vol] 40.0 fL 35.1-43.9 [facility] Erythrocyte distribution width (RBC) [Ratio] 13.4 % 11.6-14.6 [facility] Immature granulocytes/100 WBC (Bld) 0.200 % 0.0-0.9 [facility] Comment on above: IG% - Immature Granu locytes (promyelocytes, myelocytes and metamyelocytes) > 1% indicates that a LEFT SHIFT is Present. MCH (RBC) [Entitic mass] 25.9 pg 27.0-32.0 [facility] Nucleated RBC/100 WBC (Bld) [Ratio] 0 % 0-5 [facility] MCHC Auto (RBC) [Mass/Vol]Or dered By: Catalina Polk on 07-29-2022 MCHC (RBC) [Mass/Vol] 31.7 g/dL 32-36 [facility] No Panel InformationOrdered By: Catalina Polk on 07-29-2022 Prostate Specific Antigen Screen 0.42 ng/mL 0.00-4.00 [facility] Comment on above: This test was perfor med using the TPSA assay method [facility]. Values obtained with differentassay methods cannot be used interchangably.When changing PSA assays in the course of monitoring apatient, additional sequential testing should be carriedout to confirm baseline values. Platelets bldOrdered By: Catalina Polk on 07-29-2022 Platelets (Bld) [#/Vol] 198 10*3/uL 150-450 [facility] Serum or plasma cholesterol in HDL measurement (mass/volume)Ordered By: Catalina Polk on 07-29-2022 Cholesterol in HDL [Mass/Vol] 41 mg/dL >40 [facility] Comment on above: The drugs N-Acetylcy steine and Metamizole may falsely depress this assay. Reference Range HDL <40 mg/dL Low HDL Cholesterol HDL >or= 60 mg/dL High HDL Cholesterol Serum or plasma cholesterol in VLDL measurement (mass/volume)Ordered By: Catalina Polk on 07-29-2022 Cholesterol in VLDL [Mass/Vol] 27 mg/dL 5-40 [facility] Serum or plasma low density lipoprotein (LDL) cholesterol measurement (mass/volume)Ordered By: Catalina Polk on 07-29-2022 Cholesterol in LDL [Mass/Vol] 85 mg/dL 0-130 [facility] Absolute lymphocyte counton 06-09-2021 Lymphocytes Auto (Unsp spec) [#/Vol] 1.81 10*3/uL 0.83-4.51 [facility] Work Phone: Basophil percentageon 2021 Basophils/100 WBC (Bld) 0.6 % 0-1 [facility] Work Phone: Cholesterol [Mass/Vol] 134 mg/dL <200 [facility] Work Phone: Comment on above: <200 mg/dL Desirable 200-240 mg/dL Borderline >240 mg/dL High Risk Eosinophils/100 WBC (Bld) 2.9 % 0-5 [facility] Work Phone: Neutrophils (Bld) [#/Vol] 2.2 10*3/uL 2.0-7.7 [facility] Work Phone: Neutrophils/100 WBC (Bld) 43.3 % 47-70 [facility] Work Phone: Testosterone [Mass/Vol] 170.05 ng/dL [facility] Work Phone: Comment on above: CENTRAL 90% REFERENC E RANGES MALE AGE <50 197.44 - 669.58 ng/dL MALE AGE > or = 50 187.72 - 684.19 ng/dL FEMALE AGE <50 8.38 - 35.01 ng/dL FEMALE AGE > or = 50 <7.00 - 35.92 ng/dL Effective as of 09/15/20 Triglyceride [Mass/Vol] 82 mg/dL [facility] Work Phone: Comment on above: The drugs N-Acetylcy steine and Metamizole may falsely depress this assay.Serum Triglycerides Reference Interval Normal <150 mg/dL Borderline high 150 - 199 mg/dL High 200 - 499 mg/dL Very High > or = 500 mg/dL WBC (Bld) [#/Vol] 5.2 10*3/uL 4.4-11.0 [facility] Work Phone: Blood erythrocytes count (nu mber/volume)on 06-09-2021 RBC (Bld) [#/Vol] 5.73 10*6/uL 4.6-6.2 [facility] Work Phone: Blood hemoglobin measurement (mass/volume)on 06-09-2021 Hemoglobin (Bld) [Mass/Vol] 15.8 g/dL 13.0-16.5 [facility] Work Phone: Blood lymphocytes/100 leukoc yteson 06-09-2021 Lymphocytes/100 WBC (Bld) 35.0 % 19-41 [facility] Work Phone: Blood monocytes/100 leukocyt eson 06-09-2021 Monocytes/100 WBC (Bld) 18.2 % 0-10 [facility] Work Phone: Blood platelet mean volumeon 06-09-2021 Platelet mean volume (Bld) [Entitic vol] 10.6 fL 6.2-12.0 [facility] Work Phone: Determination of erythrocyte mean corpuscular volume (MCV)on 06-09-2021 MCV (RBC) [Entitic vol] 83.1 fL 80-94 [facility] Work Phone: Hematocrit Auto (Bld) [Volum e fraction]on 06-09-2021 Hematocrit (Bld) [Volume fraction] 47.6 % 40-54 [facility] Work Phone: Laboratory - Hematology and Cell countson 06-09-2021 Erythrocyte distribution width (RBC) [Entitic vol] 37.5 fL 35.1-43.9 [facility] Work Phone: Erythrocyte distribution width (RBC) [Ratio] 12.4 % 11.6-14.6 [facility] Work Phone: Immature granulocytes/100 WBC (Bld) 0.000 % 0.0-0.9 [facility] Work Phone: Comment on above: IG% - Immature Granu locytes (promyelocytes, myelocytes and metamyelocytes) > 1% indicates that a LEFT SHIFT is Present. MCH (RBC) [Entitic mass] 27.6 pg 27.0-32.0 [facility] Work Phone: Nucleated RBC/100 WBC (Bld) [Ratio] 0 % 0-5 [facility] Work Phone: MCHC Auto (RBC) [Mass/Vol]on 06-09-2021 MCHC (RBC) [Mass/Vol] 33.2 g/dL 32-36 [facility] Work Phone: Platelets bldon 06-09-2021 Platelets (Bld) [#/Vol] 186 10*3/uL 150-450 [facility] Work Phone: Serum or plasma cholesterol in HDL measurement (mass/volume)on 06-09-2021 Cholesterol in HDL [Mass/Vol] 34 mg/dL [facility] Work Phone: Comment on above: The drugs N-Acetylcy steine and Metamizole may falsely depress this assay. Reference Range HDL <40 mg/dL Low HDL Cholesterol HDL >or= 60 mg/dL High HDL Cholesterol Serum or plasma cholesterol in VLDL measurement (mass/volume)on 06-09-2021 Cholesterol in VLDL [Mass/Vol] 16 mg/dL 5-40 [facility] Work Phone: Serum or plasma low density lipoprotein (LDL) cholesterol measurement (mass/volume)on 06-09-2021 Cholesterol in LDL [Mass/Vol] 84 mg/dL 0-130 [facility] Work Phone: Whole blood hemoglobin A1c/t otal hemoglobin ratio (mass fraction)on 06-09-2021 HbA1c (Bld) [Mass fraction] 5.1 % 3.8-5.6 [facility] Work Phone: Comment on above: Normal < 5.7 % Predi abetic 5.7 - 6.4 % Diabetic >or= 6.5 % Please note range changes. .Auto Diffon 04-16-2021 Basophil, Absolute 0.00 10 3/mcL Normal 0.00-0.19 [facility] ([place]) Comment on above: Performed By: #### C BC, ADIFF, ANEU, BMP, TROPHS, GFR #### [address] [address] Basophils/100 WBC (Bld) 0.5 % Normal 0.0-2.5 [facility] ([place]) Comment on above: Performed By: #### C BC, ADIFF, ANEU, BMP, TROPHS, GFR #### [address] [address] Eosinophil, Absolute 0.10 10 3/mcL Normal 0.00-0.40 [facility] ([place]) Comment on above: Performed By: #### C BC, ADIFF, ANEU, BMP, TROPHS, GFR #### [address] [address] Eosinophils/100 WBC (Bld) 2.1 % Normal 0.0-7.0 [facility] ([place]) Comment on above: Performed By: #### C BC, ADIFF, ANEU, BMP, TROPHS, GFR #### [address] [address] Lymphocyte, Absolute 1.90 10 3/mcL Normal 0.77-3.85 [facility] ([place]) Comment on above: Performed By: #### C BC, ADIFF, ANEU, BMP, TROPHS, GFR #### [address] [address] Lymphocytes/100 WBC (Bld) 32.8 % Normal 10.0-50.0 [facility] ([place]) Comment on above: Performed By: #### C BC, ADIFF, ANEU, BMP, TROPHS, GFR #### [address] [address] Monocyte, Absolute 0.80 10 3/mcL Normal 0.15-1.00 [facility] ([place]) Comment on above: Performed By: #### C BC, ADIFF, ANEU, BMP, TROPHS, GFR #### [address] [address] Monocytes/100 WBC (Bld) 13.4 % High 1.7-13.0 [facility] ([place]) Comment on above: Performed By: #### C BC, ADIFF, ANEU, BMP, TROPHS, GFR #### [address] [address] Neutrophils/100 WBC (Bld) 51.2 % Normal 37.0-80.0 [facility] ([place]) Comment on above: Performed By: #### C BC, ADIFF, ANEU, BMP, TROPHS, GFR #### [address] [address] .GFRon 04-16-2021 GFR 100 ml/min/1.73sqm Normal [facility] ([place]) Comment on above: Result Comment: GFR Population [...] BC, ADIFF, ANEU, BMP, TROPHS, GFR #### [address] [address] GFR Non- 83 ml/min/1.73sqm Normal [facility] ([place]) Comment on above: Result Comment: GFR Population [...] BC, ADIFF, ANEU, BMP, TROPHS, GFR #### [address] [address] .NEUABSon 04-16-2021 Neutrophil, Absolute 3.00 10 3/mcL Normal 2.85-6.16 [facility] ([place]) Comment on above: Performed By: #### C BC, ADIFF, ANEU, BMP, TROPHS, GFR #### [address] [address] BMPon 04-16-2021 BUN/Creatinine Ratio 15 ratio Normal 7-27 [facility] ([place]) Comment on above: Performed By: #### C BC, ADIFF, ANEU, BMP, TROPHS, GFR #### [address] [address] Calcium [Mass/Vol] 8.6 mg/dL Normal 8.4-10.2 [facility] ([place]) Comment on above: Performed By: #### C BC, ADIFF, ANEU, BMP, TROPHS, GFR #### [address] [address] Chloride [Moles/Vol] 105 mmol/L Normal 98-107 [facility] ([place]) Comment on above: Performed By: #### C BC, ADIFF, ANEU, BMP, TROPHS, GFR #### [address] [address] CO2 [Moles/Vol] 25 mmol/L Normal 22-29 [facility] ([place]) Comment on above: Performed By: #### C BC, ADIFF, ANEU, BMP, TROPHS, GFR #### [address] [address] Creatinine [Mass/Vol] 0.99 mg/dL Normal 0.70-1.30 [facility] ([place]) Comment on above: Performed By: #### C BC, ADIFF, ANEU, BMP, TROPHS, GFR #### [address] [address] Electrolyte Balance 11.0 mEq/L Normal 4.0-15.0 [facility] ([place]) Comment on above: Performed By: #### C BC, ADIFF, ANEU, BMP, TROPHS, GFR #### [place] [id number] Glucose [Mass/Vol] 109 mg/dL High 70-105 [facility] ([place]) Comment on above: Performed By: #### C BC, ADIFF, ANEU, BMP, TROPHS, GFR #### [address] [address] Potassium [Moles/Vol] 4.0 mmol/L Normal 3.5-5.1 [facility] ([place]) Comment on above: Performed By: #### C BC, ADIFF, ANEU, BMP, TROPHS, GFR #### [address] [address] Sodium [Moles/Vol] 141 mmol/L Normal 136-145 [facility] ([place]) Comment on above: Performed By: #### C BC, ADIFF, ANEU, BMP, TROPHS, GFR #### [address] [address] Urea nitrogen [Mass/Vol] 15 mg/dL Normal 7-18 [facility] ([place]) Comment on above: Performed By: #### C BC, ADIFF, ANEU, BMP, TROPHS, GFR #### [address] [address] CBCon 04-16-2021 Erythrocyte distribution width (RBC) [Ratio] 13.1 % Normal 11.5-14.5 [facility] ([place]) Comment on above: Performed By: #### C BC, ADIFF, ANEU, BMP, TROPHS, GFR #### [address] [address] Hematocrit (Bld) [Volume fraction] 48.2 % Normal 42.0-52.0 [facility] ([place]) Comment on above: Performed By: #### C BC, ADIFF, ANEU, BMP, TROPHS, GFR #### [place] [address] Hgb 16.3 G/dL Normal 14.0-18.0 [facility] ([place] Comment on above: Performed By: #### C BC, ADIFF, ANEU, BMP, TROPHS, GFR #### [place] [address] MCH (RBC) [Entitic mass] 28.0 pg Normal 27.0-31.2 [facility] ([place]) Comment on above: Performed By: #### C BC, ADIFF, ANEU, BMP, TROPHS, GFR #### [place] [address] MCHC 33.8 G/dL Normal 31.8-35.4 [facility] ([place] Comment on above: Performed By: #### C BC, ADIFF, ANEU, BMP, TROPHS, GFR #### [address] [address] MCV (RBC) [Entitic vol] 82.8 fL Normal 80.0-94.0 [facility] ([place]) Comment on above: Performed By: #### C BC, ADIFF, ANEU, BMP, TROPHS, GFR #### [address] [address] Platelet 200 10 3/mcL Normal 130-400 [facility] ([place]) Comment on above: Performed By: #### C BC, ADIFF, ANEU, BMP, TROPHS, GFR #### [address] [address] Platelet mean volume (Bld) [Entitic vol] 8.7 fL Normal 7.4-10.4 [facility] ([place]) Comment on above: Performed By: #### C BC, ADIFF, ANEU, BMP, TROPHS, GFR #### Sergio [address] [address] RBC 5.81 10 6/mcL Normal 4.04-6.13 [facility] ([place]) Comment on above: Performed By: #### C BC, ADIFF, ANEU, BMP, TROPHS, GFR #### Sergio [address] [address] WBC 5.90 10 3/mcL Normal 4.60-10.80 [facility] ([place]) Comment on above: Performed By: #### C BC, ADIFF, ANEU, BMP, TROPHS, GFR #### Sergio [address] [address] LABORATORYOrdered By: Chichi Garner on 04-16-2021 Troponin [...] ml/min/1.73sqm Invalid Interpretation Code AO Chemistry S TROPHSon 04-16-2021 Troponin I High Sensitivity 7.8 ng/L Normal 0.0-76.2 [facility] ([place]) Comment on above: Performed By: #### T ROPHS #### [address] [address] Troponin I High Sensitivity 7.1 ng/L Normal 0.0-76.2 [facility] ([place] Comment on above: Performed By: #### C BC, ADIFF, ANEU, BMP, TROPHS, GFR #### [address] [address] XR CHEST 2 VIEWSon 2 XR CHEST 2 VIEWS ORIGINAL EXAMINATION: TWO [...] Date: 04/16/2021 3:00:09 PM Ordering Provider: [facility] ([place]) Vital Signs Date Time Vital Sign Value Performing Clinician Jarrett aggarwal 04-20-2024 15:05-0500 Body temperature 98.1 [degF] Gregg Ibarra MD Work Phone: [facility] 04-20-2024 15:05-0500 Body weight 123 kg Gregg Ibarra MD Work Phone: [facility] 04-20-2024 15:05-0500 Diastolic blood pressure 84 mm[Hg] Gregg Ibarra MD Work Phone: [facility] 04-20-2024 15:05-0500 Heart rate 61 /min Gregg Ibarra MD Work Phone: [facility] 04-20-2024 15:05-0500 Respiratory rate 16 /min Gregg Ibarra MD Work Phone: [facility] 04-20-2024 15:05-0500 SaO2% (BldA) [Mass fraction] 99 % Gregg Ibarra MD Work Phone: [facility] 04-20-2024 15:05-0500 Systolic blood pressure 132 mm[Hg] Gregg Ibarra MD Work Phone: [facility] 04-19-2024 17:07-0500 Body temperature 98.2 [degF] Rajiv Hopkins MD Work Phone: [facility] 04-19-2024 17:07-0500 Diastolic blood pressure 60 mm[Hg] Rajiv Hopkins MD Work Phone: [facility] 04-19-2024 17:07-0500 Heart rate 58 /min Rajiv Hopkins MD Work Phone: [facility] 04-19-2024 17:07-0500 Respiratory rate 15 /min Rajiv Hopkins MD Work Phone: [facility] 04-19-2024 17:07-0500 SaO2% (BldA) [Mass fraction] 96 % Rajiv Hopkins MD Work Phone: 2(739)575-234117 [place] [address] 04-19-2024 17:07-0500 Systolic blood pressure 122 mm[Hg] Rajiv Hopkins MD Work Phone: 5(288)324-341817 [place] [address] 07-03-2023 09:15-0400 Body temperature 97.1 [degF] Dr. Catalina Polk Work Phone: 5(641)660-019017 [place] [address] 07-03-2023 09:15-0400 Diastolic blood pressure 49 mm[Hg] Dr. Catalina Polk Work Phone: 3(968)127-212717 [place] [address] 07-03-2023 09:15-0400 Heart rate 53 /min Dr. Catalina Polk Work Phone: 2(498)990-937617 [place] [address] 07-03-2023 09:15-0400 Respiratory rate 16 /min Dr. Catalina Polk Work Phone: 0(808)182-245617 [place] [address] 07-03-2023 09:15-0400 SaO2% (BldA) [Mass fraction] 94 % Dr. Catalina Polk Work Phone: 1(918)916-160417 [place] [address] 07-03-2023 09:15-0400 Systolic blood pressure 102 mm[Hg] Dr. Catalina Polk Work Phone: 0(100)110-269617 [place] [address] 07-03-2023 07:41-0400 Body height 180.[address] Catalina Polk Work Phone: 0(627)323-316717 [place] [address] 07-03-2023 07:41-0400 Body mass index (BMI) [Ratio] 39.9 kg/m2 Dr. Catalina Polk Work Phone: 2(496)515-369017 [place] [address] 07-03-2023 07:41-0400 Body weight [address] Catalina Polk Work Phone: 1(053)238-830517 [place] [address] 05-19-2023 11:14-0400 Body mass index (BMI) [Ratio] 38.5 kg/m2 Dr. Catalina Polk Work Phone: 8(290)359-356317 [place] [address] 05-19-2023 11:14-0400 Body weight 125.[address] Catalina Polk Work Phone: 2(023)792-512217 [place] [address] 01-23-2023 12:36-0500 Body height 179.[address] Catalina Polk Work Phone: 3(788)478-051940 [place] [address] 01-23-2023 12:36-0500 Body mass index (BMI) [Ratio] 39.3 kg/m2 Dr. Catalina oPlk Work Phone: 4(369)439-213507 [address] 01-23-2023 12:36-0500 Body temperature 98.1 [degF] Dr. Catalina Polk Work Phone: 4(709)946-042217 [place] [address] 01-23-2023 12:36-0500 Body weight 126.[address] Catalina Polk Work Phone: 9(321)603-141717 [place] [address] 01-23-2023 12:36-0500 Diastolic blood pressure 84 mm[Hg] Dr. Catalina Polk Work Phone: 3(032)368-688217 [place] [address] 01-23-2023 12:36-0500 Heart rate 48 /min Dr. Catalina Polk Work Phone: 6(911)094-494817 [place] [address] 01-23-2023 12:36-0500 SaO2% (BldA) [Mass fraction] 99 % Dr. Catalina Polk Work Phone: 1(128)707-194707 [address] 01-23-2023 12:36-0500 Systolic blood pressure 130 mm[Hg] Dr. Catalina Polk Work Phone: 1(108)939-907940 [place] [address] 08-15-2022 07:58-0400 Body height 179.[address] Catalina Polk Work Phone: 4(260)949-423207 [address] 08-15-2022 07:58-0400 Body mass index (BMI) [Ratio] 40.3 kg/m2 Dr. Catalina Polk Work Phone: 2(386)449-658340 [place] [address] 08-15-2022 07:58-0400 Body temperature 97.6 [degF] Dr. Catalina Polk Work Phone: 8(374)363-155640 [place] [address] 08-15-2022 07:58-0400 Body weight 129.[address] Catalina Polk Work Phone: 5(184)257-438140 [place] [address] 08-15-2022 07:58-0400 Diastolic blood pressure 83 mm[Hg] Dr. Catalina Polk Work Phone: [facility] 08-15-2022 07:58-0400 Heart rate 93 /min Dr. Catalina Polk Work Phone: [facility] 08-15-2022 07:58-0400 Respiratory rate 18 /min Dr. Catalina Polk Work Phone: [facility] 08-15-2022 07:58-0400 SaO2% (BldA) [Mass fraction] 95 % Dr. Catalina Polk Work Phone: [facility] 08-15-2022 07:58-0400 Systolic blood pressure 146 mm[Hg] Dr. Catalina Polk Work Phone: [facility] 04-16-2021 17:15-0500 Diastolic blood pressure 87 mm[Hg] DR LUI MAYES MD [facility] 04-16-2021 17:15-0500 Heart rate 62 /min DR LUI MAYES MD [facility] 04-16-2021 17:15-0500 Reason For Taking VItal Signs DR LUI MAYES MD [facility] 04-16-2021 17:15-0500 Respiratory rate 20 /min DR LUI MAYES MD [facility] 04-16-2021 17:15-0500 Systolic blood pressure 142 mm[Hg] DR LUI MAYES MD [facility] 04-16-2021 15:50-0500 Diastolic blood pressure 83 mm[Hg] DR LUI MAYES MD [facility] 04-16-2021 15:50-0500 Heart rate 54 /min DR LUI MAYES MD [facility] 04-16-2021 15:50-0500 Reason For Taking VItal Signs DR LUI MAYES MD [facility] 04-16-2021 15:50-0500 Respiratory rate 20 /min DR LUI MAYES MD [facility] 04-16-2021 15:50-0500 Systolic blood pressure 128 mm[Hg] DR LUI MAYES MD [facility] 04-16-2021 14:59-0500 Diastolic blood pressure 80 mm[Hg] DR LUI MAYES MD [facility] 04-16-2021 14:59-0500 Heart rate 74 /min DR LUI MAYES MD [facility] 04-16-2021 14:59-0500 Mean blood pressure 98 mm[Hg] DR LUI MAYES MD [facility] 04-16-2021 14:59-0500 Respiratory rate 18 /min DR LUI MAYES MD [facility] 04-16-2021 14:59-0500 Systolic blood pressure 135 mm[Hg] DR LUI MAYES MD [facility] 04-16-2021 14:52-0500 Mean blood pressure 100 mm[Hg] DR LUI MAYES MD [facility] 04-16-2021 14:52-0500 Reason For Taking VItal Signs DR LUI MAYES MD [facility] 04-16-2021 14:10-0500 Body temperature 98.6 [degF] DR LUI MAYES MD [facility] 04-16-2021 14:10-0500 Body weight [address] LUI MAYES MD [facility] 04-16-2021 14:10-0500 Heart rate 62 /min DR LUI MAYES MD [facility] Encounters Encounter Date Encounter Type Care Provider Facility Start: 06-14-2024 End: 06-14-2024 ambulatory Rajiv Hopkins MD Work Phone: [facility] Work Phone: Start: 06-14-2024 End: 06-14-[address] Rajiv Hopkins MD -[facility] Start: 06-14-2024 End: 06-14-2024 ambulatory Rajiv Hopkins Facility:[facility] Start: 04-20-2024 End: 04-20-2024 ambulatory CATALINA POLK Facility:[facility] Start: 04-20-2024 End: 03-01-2025 Office outpatient new 30 minutes Gregg Ibarra MD Work Phone: [facility] Comment on above: Herpes zoster withou t complications (Primary Dx) Start: 04-19-2024 End: 04-19-2024 ambulatory Rajiv Hopkins MD Work Phone: [facility] Work Phone: Start: 04-19-2024 End: 04-19-2024 Patient encounter procedure Torsten [facility] Work Phone: Start: 04-19-2024 End: 04-19-2024 ambulatory Rajiv Kellie Facility:[facility] Start: 01-05-2024 End: 01-05-[address] [facility] Start: 01-05-2024 End: 01-05-2024 ambulatory Rajiv Kellie Facility:[facility] Start: 12-16-2023 End: 12-16-2023 ambulatory Rajiv Hopkins Facility:[facility] Start: 07-31-2023 End: 07-31-2023 ambulatory Catalina Polk Facility:[facility] Start: 07-03-2023 ambulatory Catalina Polk Facility: [facility] Start: 07-03-2023 Non-patient / Non-visit Dr. Edda Polk Work Phone: [facility] Start: 07-03-2023 End: 07-03-2023 Admission to same day surgery center Dr. Catalina Polk Work Phone: [facility] Work Phone: Start: 07-03-2023 End: 07-03-[address] Catalina Polk Work Phone: [facility] Work Phone: Start: 05-19-2023 Non-patient / Non-visit Dr. Edda Polk Work Phone: [facility] Work Phone: Start: 04-22-2023 End: 04-22-[address] Catalina Polk Work Phone: [facility] Work Phone: Start: 04-22-2023 End: 04-22-[address] [facility] Start: 01-23-2023 End: 01-23-[address] Catalina Polk Work Phone: [facility] Work Phone: Start: 11-09-2022 End: 11-09-[address] Catalina Polk Work Phone: [facility] Work Phone: Start: 11-09-2022 End: 11-09-[address] Catalina Polk Work Phone: [facility] Start: 09-07-2022 End: 09-07-[address] Catalina Polk Work Phone: [facility] Work Phone: Start: 09-07-2022 End: 09-07-[address] Catalina Polk Work Phone: [facility] Work Phone: Start: 08-15-2022 End: 08-15-[address] Catalina Polk Work Phone: [facility] Work Phone: Start: 07-29-2022 End: 07-29-[address] Catalina Polk Work Phone: [facility] Start: 06-09-2021 End: 06-09-2021 Patient encounter procedure [facility] Start: 04-16-2021 End: 04-16-2021 Emergency department patient visit DR LUI MAYES MD [facility] Procedures Date Procedure Procedure Detail Performing Clinician Start: 07-03-[address] Catalina schulz Work Phone: Start: 11-20-2009 Lipid 1996 panel - S jessie or Plasma Gregg Ibarra MD Work Phone: Plan of Treatment Date Care Activity Detail Author Start: 04-25-2024 Urine microalbumin profile DTaP,Tdap,Td Vaccine (2 - Td or Tdap) [facility] Start: 11-19-2023 Diabetes Screening Diabetes Screenin g [facility] Start: 11-19-2023 Screening for malign ant neoplasm of colon [facility] Start: 10-22-2023 Covid-19 Vaccine ( season) Covid-19 Vaccine () [facility] Start: 10-22-2023 Influenza vaccination Influenza Vacc ine (#1) [facility] Start: 07-03-2023 Patient discharge [facility] Start: 11-20-2014 Lipid panel Lipid Screening [facility] Start: 10-26-2014 Hepatitis B Vaccine (3 of 3 - 19+ 3-dose series) Hepatitis B Vaccine (3 of 3 - 19+ 3-dose series) [facility] Start: 1996 Anxiety Screening Anxiety Screening [facility] Start: 1996 Depression Screening Depression Scre ening [facility] Start: 1996 Hepatitis C screening Hepatitis C Sc reening [facility] Start: 1996 HIV screening HIV Screening [facility] Colonoscopy [facility] Patient referral [facility] Work Phone: Serum testosterone measurement [facility] Testosterone Free [Mass/volume] in Serum or Plasma [facility] Testosterone measurement [facility] Immunizations Immunization Date Immunization Notes Care Provider Aldo gauthier 01-17-2014 influenza, live, intranasal, quadrivalent Gregg Ibarra MD Work Phone: [facility] 01-17-2014 influenza virus vacc ine, unspecified formulation Gregg Ibarra MD Work Phone: [facility] Payers Date Payer Category Payer Self-pay [id number] 2018 Private Health Insurance [employer] PPO [id number] 2018 [id number] Unknown [id number] Unknown [facility] [id number] Unknown [facility] PACKAGE PLAN [id number] Unknown [id number] Unknown [id number] Unknown [id number] Unknown [id number] Unknown [id number] Unknown [id number] Unknown [id number] Unknown [id number] Social History Date Type Detail Facility Start: 04-16-2021 End: 06-28-2023 Never smoked tobacco (finding) [facility] Start: 1980 Sex Assigned At Male A [facility] Start: 10-01-2019 End: 06-28-2023 Tobacco smoking status MNIS Unknown if ever smoked [facility] Start: 04-20-2024 Tobacco use and exposure Smokeless tobacco non-user [facility] Start: 04-20-2024 Alcoholic beverage intake Current drinker of alcohol (finding) [facility] Start: 01-26-2020 End: 04-20-2024 History of Social function [facility] Start: 01-26-2020 End: 04-20-2024 Tobacco use panel [facility] National Score (1-10 0), lower number is lower risk Not on file [facility] Start: 1980 Sex assigned at Not on file [facility] Start: 05-02-2024 End: 06-18-2024 Sex Male (finding) [facility] Goals Date Patient Goal Desired Activity /State Functional Status Date Assessment Result Facility 01-06-2014 Are you deaf, or do you have serious difficulty hearing No 01/06/2014 12:05 PM Loli Dang LPN No [facility] 01-06-2014 Are you blind, or do you have serious difficulty seeing, even when wearing glasses No 01/06/2014 12:05 PM Loli Dang LPN No [facility] 01-06-2014 Do you have serious difficulty walking or climbing stairs No 01/06/2014 12:05 PM Loli Dang LPN No [facility] 01-06-2014 Do you have difficul ty dressing or bathing No 01/06/2014 12:05 PM Loli Dang [employer] No [facility] 01-06-2014 Because of a physica l, mental, or emotional condition, do you have difficulty doing errands alone such as visiting a physician's office or shopping No 01/06/2014 12:05 PM EST Loli Donald LPN No [facility] Mental Status Date Assessment Result Facility 07-03-2023 Cognitive function Level Of Cons ciousness Appropriate;Drowsy [facility] Work Phone: 07-03-2023 Cognitive function Voice/Name [facility] Work Phone: 01-06-2014 Because of a physica l, mental, or emotional condition, do you have serious difficulty concentrating, remembering, or making decisions No 01/06/2014 12:05 PM EST Loli Donald LPN No [facility] Clinical Notes 04-16-2021 to 04-20-2024 Patient InstructionsGregg Ibarra MD - 04/20/2024 3:15 PM EST Note Date & Type Note Facility 04-20-2024 Instructions Gregg Ibarra MD - 04/20/2024 3:27 PM EST Shingles is a viral rash from prior chicken pox infection. Early antiviral medicine can reduce the length and severity of the shingles outbreak. The rash is contagious until all blisters or sores are dry. Until this avoid contact with women, unvaccinated (usually children under 1), or people with impaired immune systems who would be susceptible to hernando the chicken pox. The site of the rash may have scaring (color change) after the infection is resolved. Pain, burning, or tingling from the rash may continue for days to several months after the infection-typically a few weeks. There is a vaccine that can reduce the chance of future shingles outbreaks, but for a few years after a shingles episode it probably does not provide benefit. documented in this encounter [facility] 04-20-2024 Note HNO ID: [id number] Author: GREGG IBARRA MD Service: ? Author Type: Physician Type: Progress Notes Filed: 04/20/2024 16:29 Note Text: Patient presents with: Red Eye HPI: Feeling symptoms since yesterday. He was prescribed eye and ear drops at another urgent care yesterday. Positive symptoms: Comfortable rash left upper scalp, lytic irritation upper eyelid, minimal irritation left eyeball, left ear discomfort, tender bumps behind and below the left ear, very stressful week at work Negative symptoms: Fever, vision change, hearing difficulty, mouth pain PAST MEDICAL HISTORY Diagnosis Date PMH - PAST MEDICAL HISTORY OF none MEDICATIONS: Current Outpatient Medications Medication Sig testosterone cypionate (DEPO-TESTOSTERONE) 100 mg/mL injection INJECT 0.5 (ONE-HALF) OF A MILLILITER INTRAMUSCULARLY ONCE WEEKLY losartan (COZAAR) 50 mg tablet Take 50 mg by mouth once daily. No current facility-administered medications for this visit. ALLERGIES: ALLERGIES No Known Allergies VITALS: BP 132/84 Pulse 61 Temp 36.7 ?C (98.1 ?F) Resp 16 Wt 123 kg (271 lb 2.7 oz) SpO2 99% PHYSICAL EXAM: GEN: Pleasant, in no acute distress. HEENT: PERRL, EOMI, conjunctiva clear. Small erythematous clustered papules below the lateral left eyebrow. Erythematous papular macular rash left frontal and parietal scalp. Ears: canals clear. TMs without erythema, bulge, or effusion Sinuses: non-tender frontal sinus, non-tender maxillary sinuses Throat: moist mucous membranes, no erythema, no exudate Neck: supple, no thyromegaly, tender lymphadenopathy below the left ear HEART: regular rate, regular rhythm, no murmurs LUNGS: clear to auscultation, no wheezes or crackles, no increased WOB ASSESSMENT/PLAN: 1. Herpes zoster without complications - ICD9: 053.9, ICD10: B02.9 Left V1 shingles. - VALACYCLOVIR 1 GRAM TABLET He may discontinue antibiotic drops. See patient education reviewed. Follow up with ophthalmology with worsening eye irritation. Follow up with PCP if pain is not controlled with OTC analgesia. Gregg Ibarra MD [facility] 04-20-2024 History of Presen t illness Narrative Patient presents with: Red Eye HPI: Feeling symptoms since yesterday. He was prescribed eye and ear drops at another urgent care yesterday. Positive symptoms: Comfortable rash left upper scalp, lytic irritation upper eyelid, minimal irritation left eyeball, left ear discomfort, tender bumps behind and below the left ear, very stressful week at work Negative symptoms: Fever, vision change, hearing difficulty, mouth pain PAST MEDICAL HISTORY Diagnosis Date PMH - PAST MEDICAL HISTORY OF none MEDICATIONS: Current Outpatient Medications Medication Sig testosterone cypionate (DEPO-TESTOSTERONE) 100 mg/mL injection INJECT 0.5 (ONE-HALF) OF A MILLILITER INTRAMUSCULARLY ONCE WEEKLY losartan (COZAAR) 50 mg tablet Take 50 mg by mouth once daily. No current facility-administered medications for this visit. ALLERGIES: ALLERGIES No Known Allergies VITALS: BP 132/84 Pulse 61 Temp 36.7 C (98.1 F) Resp 16 Wt 123 kg (271 lb 2.7 oz) SpO2 99% PHYSICAL EXAM: GEN: Pleasant, in no acute distress. HEENT: PERRL, EOMI, conjunctiva clear. Small erythematous clustered papules below the lateral left eyebrow. Erythematous papular macular rash left frontal and parietal scalp. Ears: canals clear. TMs without erythema, bulge, or effusion Sinuses: non-tender frontal sinus, non-tender maxillary sinuses Throat: moist mucous membranes, no erythema, no exudate Neck: supple, no thyromegaly, tender lymphadenopathy below the left ear HEART: regular rate, regular rhythm, no murmurs LUNGS: clear to auscultation, no wheezes or crackles, no increased WOB ASSESSMENT/PLAN: 1. Herpes zoster without complications - ICD9: 053.9, ICD10: B02.9 Left V1 shingles. - VALACYCLOVIR 1 GRAM TABLET He may discontinue antibiotic drops. See patient education reviewed. Follow up with ophthalmology with worsening eye irritation. Follow up with PCP if pain is not controlled with OTC analgesia. Gregg Ibarra MD documented in this encounter [facility] 04-19-2024 Evaluation note Diagnosis Onset Date Resolution Conjunctivitis, left eye acute April 19, 2 025 5:02pm [facility] Work Phone: 1(705) 678-630805-13-2024 Procedure [facility] 05-13-2024 Procedure [facility]05-13-2024 [facility] Medical Records Department [address] [place] [address] History Physical Exam 07/03/23832 MR#: [id number] Acct: [id number] Name: GUSTAVO KNOX Rep #: [id number] : 1980 42 From: Moise Friend PCP: Dr. Catalina Polk MD Status:[facility] Location: [place] [address] HPI - General General Date of Admission: 07/03/23 Date of Service: 07/03/23 Chief Complaint: Screening colonoscopy HPI Narrative GUSTAVO KNOX, is a 42 M who presents today for screening colonoscopy. He has a past medical history of obstructive sleep apnea. He also has past medical history of hypertension. He comes in today for colonoscopy. He has a strong family history of colon cancer in his grandfather and uncle. Also his dad had history of multiple polyps. He is not have any abdominal pain. Denies any cramping. Denies any chest pain shortness of breath. Overall he is a very good health. [facility] Medical History (Updated 06/28/23 @ 13:56 by Patrizia Noble) Acute bronchitis, unspecified BiPAP (biphasic positive airway pressure) dependence Family hx of colon cancer History of irregular heartbeat HTN (hypertension) Hx of colonic polyp Non-smoker Sleep apnea Wears glasses Home Medications testosterone 30 mg/actuation (1.5 mL) transderm solution metered pump (Axiron) 2 pump topical QDAY 03/04/17 [History Last Taken Unknown] losartan 50 mg tablet 50 mg PO DAILY 05/19/23 [History Last Taken 07/03/23 05:00] Allergy/AdvReac Type Severity Reaction Status Date / Time No Known Allergies Allergy Verified 07/03/23 07:40 Surgical History (Updated 05/19/23 @ 11:09 by Rohini Hernandez) Hx of colonoscopy Social History (Updated 05/19/23 @ 11:09 by Rohini Hernandez) household members: spouse and children current occupational status: employed current occupation: [employer] Smoking Status: Never smoker alcohol intake: never substance use type: does not use ROS Review of Systems ROS Unobtainable: other Constitutional Constitutional: Denies fatigue, fever(s), poor appetite, weight gain or weight loss ENT HEENT: Denies mouth lesions Cardiovascular Cardiovascular: Denies abdominal bloating, abdominal edema or abdominal pain Respiratory/Chest Respiratory/Chest: Denies change in mental status, change in phlegm color, chest congestion or chest tightness Gastrointestinal Gastrointestinal: Denies belching, bloating, change in bowel habits, change in stool character, chewing difficulty, coffee ground emesis, constipation, cramping, diarrhea, dyspepsia, dysphagia, early satiety, excessive flatus, fecal incontinence, heartburn, hematemesis, hematochezia, hemorrhoids, loose stools, melena, nausea, odynophagia, rectal bleeding, tenesmus, vomiting or weight changes Genitourinary Genitourinary: Denies abdominal discomfort, burning urination or itching Musculoskeletal Musculoskeletal: Reports as per HPI; Denies muscle weakness or myalgias Integumentary Integumentary: Denies jaundice Neurologic Neurologic: Denies lack of coordination or weakness Psychiatric Psychiatric: Denies confusion, depression, memory loss, mood swings, paranoia or suicidal ideation Endocrine Endocrinology: Denies systems reviewed and no addt'l complaints, except as documented Hematologic/Lymphatic Hematologic/Lymphatic: Denies anemia, easy bleeding, easy bruising or lymphadenopathy Allergic/Immunologic Allergic/Immunologic: Denies systems reviewed and no addt'l complaints, except as documented Vital Signs Vital Signs Vital Signs: 07/03/23 07:41 07/03/23 07:41 Temperature 97.8 F Temperature Source Temporal Pulse Rate 54 L Respiratory Rate 16 Respiratory Pattern Normal Blood Pressure 131/82 H Blood Pressure Mean 98 Blood Pressure Source Monitor Blood Pressure Position Semi-Fowlers Blood Pressure Location Left Arm Pulse Ox 98 Oxygen Delivery Method Room Air Weight Weight: 286 lb 9.615 oz Body Mass Index (BMI) 39.9 Physical Exam Const alert General Appearance: cooperative Orientation / Consciousness: oriented to person HEENT hearing grossly normal bilaterally Head and Scalp: normal to inspection Face and Sinus: face symmetric Nose: external nose normal Mouth: oral and palatal mucosa normal Eyes conjunctivae normal General Eye: normal appearance of both eyes Neck full ROM General: normal visual inspection Lymph Lymphatic: no lymphadenopathy noted Chest inspection of chest normal and palpation of chest normal Chest: symmetrical chest wall rise Resp normal respiratory effort Effort and Inspection: able to speak in complete sentences Cardio regular rate GI non-distended Percussion: normal to percussion Rectal Exam: deferred Neuro Speech: speech normal Gait (Neuro): normal gait Assessment Plan (more content not included)...[facility]02-25-2022 Hospital Discharge instructions Patient Education 04/16/2021 17:17:55 Chest Pain, [...] the signs of a serious problem take moretime to appear. Many problems not related to [...] Swelling, pain or redness in one leg [id number] [employer]. [address] [place] [address]. All rights reserved. This information is not intended as a substitute for professional medical care. Always follow yourhealthcare professional's instructions. Follow Up Care 04/16/2021 13:49:18 With:CATALINA POLK MD Address: [place] [address]- When:2-4 days [facility] Evaluation + Plan note No data available for this section [facility] Evaluation noteNo assessment information available [facility] Work Phone: Evaluation note* Diagnosis Onset Date Resolution Status Obstructive sleep apnea acut e [facility] Work Phone: Evaluation note* Diagnosis Onset Date Resolution Status Cellulitis acute Tick bite acute [facility] Work Phone: evaluation note* Diagnosis Onset Date Resolution Status Encounter for screening for malignant neoplasm of colo n acute [facility] Work Phone: evaluation note* Diagnosis Herpes zoster without complications- Primary Herpes zoster without mention of complication [facility] Moise Friend [facility] July 03, 2023 8:34am Note Date/Time July 03, 2023 8:34a m [facility] Medical Records Department [address] [place] [address] History & Physical Exam 07/03/23 0833 MR#: [id number] Acct: [id number] Name: GUSTAVO KNOX Rep #:[id number] : 1980 42 From: Moise Live DO PCP: Dr. Catalina Polk MD Status:[facility] Location: [place] [address] HPI - General General Date of Admission: 07/03/23 Date of Service: 07/03/23 Chief Complaint: Screening colonoscopy HPI Narrative GUSTAVO KNOX, is a 42 M who presents today for screening colonoscopy. He has apast medical history of obstructive sleep apnea. He also has past medical history of hypertension. He comes in today for colonoscopy. He has a strong family history of colon cancer in his grandfather and uncle. Also his dad had history of multiple polyps. He is not have any abdominal pain. Denies any cramping. Denies any chest pain shortness of breath. Overall he is a very goodhealth. [facility] Medical History (Updated 06/28/23 @ 13:56 by Patrizia Noble) Acute bronchitis, unspecified BiPAP (biphasic positive airway pressure) dependence Family hx of colon cancer History of irregular heartbeat HTN (hypertension) Hx of colonic polyp Non-smoker Sleep apnea Wears glasses Home Medications testosterone 30 mg/actuation (1.5 mL) transderm solution metered pump (Axiron) 2pump topical QDAY 03/04/17 [History Last Taken Unknown] losartan 50 mg tablet 50 mg PO DAILY 05/19/23 [History Last Taken 07/03/23 05:00] Allergy/AdvReac Type Severity Reaction Status Date / Time No Known Allergies Allergy Verified 07/03/23 07:40 Surgical History (Updated 05/19/23 @ 11:09 by Rohini Hernandez) Hx of colonoscopy Social History (Updated 05/19/23 @ 11:09 by Rohini Hernandez) household members: spouse and children current occupational status: employed current occupation: [employer] Smoking Status: Never smoker alcohol intake: never substance use type: does not use ROS Review of Systems ROS Unobtainable: other Constitutional Constitutional: Denies fatigue, fever(s), poor appetite, weight gain or weight loss ENT HEENT: Denies mouth lesions Cardiovascular Cardiovascular: Denies abdominal bloating, abdominal edema or abdominal pain Respiratory/Chest Respiratory/Chest: Denies change in mental status, change in phlegm color, chestcongestion or chest tightness Gastrointestinal Gastrointestinal: Denies belching, bloating, change in bowel habits, change in stool character, chewing difficulty, coffee ground emesis, constipation, cramping, diarrhea, dyspepsia, dysphagia, early satiety, excessive flatus, fecalincontinence, heartburn, hematemesis, hematochezia, hemorrhoids, loose stools, melena, nausea, odynophagia, rectal bleeding, tenesmus, vomiting or weight changes Genitourinary Genitourinary: Denies abdominal discomfort, burning urination or itching Musculoskeletal Musculoskeletal: Reports as per HPI; Denies muscle weakness or myalgias Integumentary Integumentary: Denies jaundice Neurologic Neurologic: Denies lack of coordination or weakness Psychiatric Psychiatric: Denies confusion, depression, memory loss, mood swings, paranoia orsuicidal ideation Endocrine Endocrinology: Denies systems reviewed and no addt'l complaints, except as documented Hematologic/Lymphatic Hematologic/Lymphatic: Denies anemia, easy bleeding, easy bruising or lymphadenopathy Allergic/Immunologic Allergic/Immunologic: Denies systems reviewed and no addt'l complaints, except as documented Vital Signs Vital Signs Vital Signs: 07/03/23 07:41 07/03/23 07:41 Temperature 97.8 F Temperature Source Temporal Pulse Rate 54 L Respiratory Rate 16 Respiratory Pattern Normal Blood Pressure 131/82 H Blood Pressure Mean 98 Blood Pressure Source Monitor Blood Pressure Position Semi-Fowlers Blood Pressure Location Left Arm Pulse Ox 98 Oxygen Delivery Method Room Air Weight Weight: 286 lb 9.615 oz Body Mass Index (BMI) 39.9 Physical Exam Const alert General Appearance: cooperative Orientation / Consciousness: oriented to person HEENT hearing grossly normal bilaterally Head and Scalp: normal to inspection Face and Sinus: face symmetric Nose: external nose normal Mouth: oral and palatal mucosa normal Eyes conjunctivae normal General Eye: normal appearance of both eyes Neck full ROM General: normal visual inspection Lymph Lymphatic: no lymphadenopathy noted Chest inspection of chest normal and palpation of chest normal Chest: symmetrical chest wall rise Resp normal respiratory effort Effort and Inspection: able to speak in complete sentences Cardio regular rate GI non-distended Percussion: normal to percussion Rectal Exam: deferred Neuro Speech: speech normal Gait (Neuro): normal gait Assessment & Plan Assessment/Plan (1) Encounter for screening for malignant neoplasm of colon: PLAN: He was explained alternatives, risk, benefits including not withstanding bleeding, infection, sepsis, perforation, need for emergent surgery and . He will have an ASA of 3. 07/03/23 0834 <Electronically signed by Moise Live DO> Cosigner Signature (if applicable): CC: Dr. Catalina Polk MD; Moise Live DO~ Signed [facility] Work Phone: Reason for referral (narrative)No reason for referral information availableWPremier Health [facility] Work Phone: Summary Purpose Family History No Family History Records FoundNo Family History Records FoundNo Family History Records Found Advance Directives No Advanced Directives Records Found Advance Directive Response Recorded Date/ Time Living Will No June 28, 2023 1: 56pm Power of Gantry Crane Operator No June 28, 2023 1:56pm Chief Complaint and Reason for Visit Chief Complaint EORDER Chief Complaint Sleep problems OBSTRUCTIVE SLEEP APNEA Reason for Visit Obstructive sleep ap sobia Chief Complaint TICK BITE Reason for Visit Cellulitis Tick bite Chief Complaint Amb Documentation Reason for Visit Encounter for screen ing for malignant neoplasm of colon Chief Complaint Admit Date EORDER April 19, 2024 4:49pm ITCHY EAR, EAR PAIN April 19, 2024 5:02pm Reason for Visit Admit Date Conjunctivitis, left eye April 19, 2024 5:02pm Additional Source Comments (unrecognized sect ion and content) No Status Records FoundNo Status Records FoundNo Status Records Found INFORMATION SOURCE (unrecogn ized section and content) DATE CREATED AUTHOR 05/15/2021 [facility] ([place]) DATE CREATED AUTHOR AUTHOR'S ORGANIZ ATION 04/22/2024 [facility] DATE CREATED AUTHOR AUTHOR'S ORGANIZ ATION 06/20/2024 [facility] Goals (unrecognized section and content) Goals may be documented in a n alternate section Care Teams (unrecognized sec tion and content) Team Status: Active Member Role Status Dates Dr. Catalina Polk MD Family Provider Active Dr. Catalina Polk MD Primary Care Provider Active Team Status: Inactive Member Role Status Dates Dr. Catalina Polk MD Primary Care Provider, Referrin g Provider Active Chen Miranda NP, TAPPING MACHINE OPERATOR [employer]-C Attending Provider Active Team Status: Inactive Member Role Status Dates Dr. Catalina Polk MD Primary Care Provider, Attendin g Provider Active Team Status: Inactive Member Role Status Dates Dr. Catalina Polk MD Primary Care Provider Active Chen Miranda NP, TAPPING MACHINE OPERATOR [employer]-C Attending Provider, Referrin g Provider Active Team Status: Inactive Member Role Status Dates Dr. Catalina Polk MD Primary Care Provider Active VIRGILIO Slade Attending Provider Active Team Status: Inactive Member Role Status Dates Dr. Catalina Polk MD Primary Care Provider, Referrin g Provider Active WILMER Marks Attending Provider Active Team Status: Inactive Member Role Status Dates Dr. Catalina Polk MD Primary Care Prov ider, Attending Provider, Referring Provider Active Team Status: Active Member Role Status Dates Dr. Catalina Polk MD Primary Care Provider Active Rohini David Attending Provider Active Team Status: Active Member Role Status Dates Dr. aCtalina Polk MD Primary Care Provider, Referrin g Provider Active Dr. Moise Live DO Attending Provider, Other Prov ider Active Team Status: Inactive Member Role Status Dates Dr. Catalina Polk MD Primary Care Provider, Referrin g Provider Active Dr. Moise Live DO Attending Provider Active Physical Therapy Asst Relationship Specialty Start Date End Date Felicitas Catalina Rosenberg PCP - General 11/06/09 Team Status: Active Member Role Status Dates Dr. Catalina Polk MD Family Provider Active Rajiv Hopkins MD Primary Care Provider Active Team Status: Inactive Member Role Status Fidelina Hopkins MD Primary Care Provider Active St art: January 05, 2024 End: January 05, 2024 Rajiv Hopkins MD Attending Provider Active Start : January 05, 2024 End: January 05, 2024 Team Status: Inactive Member Role Status Fidelina Hopkins MD Primary Care Provider Active St art: April 19, 2024 End: April 19, 2024 Rajiv Hopkins MD Attending Provider Active Start : April 19, 2024 End: April 19, 2024 Rajiv Hopkins MD Referring Provider Active Start : April 19, 2024 End: April 19, 2024 Team Status: Inactive Member Role Status Fidelina Hopkins MD Primary Care Provider Active St art: April 19, 2024 End: April 19, 2024 Rajiv Hopkins MD Referring Provider Active Start : April 19, 2024 End: April 19, 2024 Torsten GUILLEN PA Attending Provider Active Sta rt: April 19, 2024 End: April 19, 2024 Team Status: Inactive Member Role Status Fidelina Hopkins MD Primary Care Provider Active St art: June 14, 2024 End: June 14, 2024 Rajiv Hopkins MD Attending Provider Active Start : June 14, 2024 End: June 14, 2024 Rajiv Hopkins MD Referring Provider Active Start : June 14, 2024 End: June 14, 2024 Source Comments (unrecognize d section and content) In the event this informatio n is protected by the Federal Confidentiality of Alcohol and Drug Abuse Patient Records regulations: The Federal rules restrict any use of the information to criminally investigate or prosecute any alcohol or drug abuse patient.[facility] Reason for Visit (unrecogniz ed section and content) Reason Comments [facility] FOR RECORDS PERTAINING TO PATIENTS WHO ARE [...] BE BASED ON THE PRIMARY CLINICAL RECORDS. [facility]. provides no warranty or guarantee of the accuracy or completeness of information in this document.
[2024-07-29] MEDS: Orphenadrine 60 MG/2 ML Ampul 30 MG IV (01:19)
[2024-07-29] MEDS: Ketorolac 15 MG/ML Vial IV (01:19)
[2024-07-29 01:31] VITALS: BP 141/92; PULSE 66; RESP 19; TEMP 36.9; O2SAT 99
[2024-07-29 01:59] VITALS: BP 141/92; PULSE 66; RESP 19; TEMP 36.9; O2SAT 99
== END 2024-07-29 02:11 | disposition home or self-care (01) ==
PROVIDERS: Emergency Provider Emergency Medicine; PCP Family Medicine; Visit Provider Emergency Medicine
DX: S60.221A Contusion of right hand, initial encounter (principal); I10 Essential (primary) hypertension; V20.49XA Other motorcycle driver injured in collision with pedestrian or animal in traffic accident, initial encounter; Y92.410 Unspecified street and highway as the place of occurrence of the external cause; G47.33 Obstructive sleep apnea (adult) (pediatric); Z99.81 Dependence on supplemental oxygen; Z79.899 Other long term (current) drug therapy; Z23 Encounter for immunization; T14.8XXA Other injury of unspecified body region, initial encounter
CPT/HCPCS: 70450; 71260; 72125; 73080; 73130; 73562; 73590; 73610; 74177; 80048; 80076; 85025; 90471; 90715; 96361; 96374; 96375; 99284; Q9967; A4216

== ENCOUNTER → 2024-11-14 | Outpatient (CLI) | payer OTHER, SELFPAY ==
--- OUTSIDE RECORDS SUMMARY | 2024-11-14 07:24 | XMS RPT_ITS | CCD ---
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 [address] [place], [address] CA,Total 8.9 mg/dL Normal 8.5-10.1 [facility] Comment on above: Order Comment: Order Date: 12/07/23Order Info: 785- - CMPOrder Info: [id number] - LIPIDOrder Date: 12/12/23Order Info: [id number] - TSH Performed By: #### L 500.4050, L100.0500, L500.4100, L509.3000 ####[facility] [address] [place], [address] Chloride [Moles/Vol] 114 mmol/L High 98-107 [facility] Comment on above: Order Comment: Order Date: 12/07/23Order Info: 785- - CMPOrder Info: [id number] - LIPIDOrder Date: 12/12/23Order Info: [id number] - TSH Performed By: #### L 500.4050, L100.0500, L500.4100, L509.3000 ####[facility] [address] [place], [address] CO2 [Moles/Vol] 26.0 mmol/L Normal 21.0-32.0 [facility] Comment on above: Order Comment: Order Date: 12/07/23Order Info: [id number] - CMPOrder Info: [id number] - LIPIDOrder Date: 12/12/23Order Info: [id number] - TSH Performed By: #### L 500.4050, L100.0500, L500.4100, L509.3000 ####[facility] [address] [place], [address] Creatinine [Mass/Vol] 1.10 mg/dL Normal 0.70-1.30 [facility] Comment on above: Order Comment: Order Date: 12/07/23Order Info: [id number] - CMPOrder Info: [id number] - LIPIDOrder Date: 12/12/23Order Info: 6-3 - TSH Result Comment: The validity of the calculated GFR GFRAA in patients over 70 years has not been determined. Clinical correlation is essential. Performed By: #### L 500.4050, L100.0500, L500.4100, L509.3000 ####[facility] [address] [place], [address] EST GFR - AA 93 mL/min Normal >60 [facility] Comment on above: Order Comment: Order Date: 12/07/23Order Info: [id number] - CMPOrder Info: [id number] - LIPIDOrder Date: 12/12/23Order Info: 6-3 - TSH Result Comment: Afri can Moroccan GFR Calc Performed By: #### L 500.4050, L100.0500, L500.4100, L509.3000 ####[facility] [address] [place], [address] GAP 2 Low 5-15 [facility] Comment on above: Order Comment: Order Date: 12/07/23Order Info: [id number] - CMPOrder Info: [id number] - LIPIDOrder Date: 12/12/23Order Info: 6-3 - TSH Performed By: #### L 500.4050, L100.0500, L500.4100, L509.3000 ####[facility] [address] [place], [address] GFR/1.73 sq M.predicted among non-blacks MDRD (S/P/Bld) [Vol rate/Area] 77 mL/min/{1.73_m2} Normal >60 [facility] Comment on above: Order Comment: Order Date: 12/07/23Order Info: [id number] - CMPOrder Info: [id number] - LIPIDOrder Date: 12/12/23Order Info: 6-3 - TSH Result Comment: Non- GFR Calc Performed By: #### L 500.4050, L100.0500, L500.4100, L509.3000 ####[facility] [address] [place], [address] Globulin (S) [Mass/Vol] 3.6 g/dL Normal 2.2-4.[address] [facility] Comment on above: Order Comment: Order Date: 12/07/23Order Info: 785- - CMPOrder Info: [id number] - LIPIDOrder Date: 12/12/23Order Info: [id number] - TSH Performed By: #### L 500.4050, L100.0500, L500.4100, L509.3000 ####[facility] [address] [place], [address] Glucose [Mass/Vol] 97 mg/dL Normal 74-106 [facility] Comment on above: Order Comment: Order Date: 12/07/23Order Info: 785- - CMPOrder Info: [id number] - LIPIDOrder Date: 12/12/23Order Info: [id number] - TSH Performed By: #### L 500.4050, L100.0500, L500.4100, L509.3000 ####[facility] [address] [place], [address] Potassium [Moles/Vol] 4.3 mmol/L Normal 3.5-5.1 [facility] Comment on above: Order Comment: Order Date: 12/07/23Order Info: 785- - CMPOrder Info: [id number] - LIPIDOrder Date: 12/12/23Order Info: [id number] - TSH Performed By: #### L 500.4050, L100.0500, L500.4100, L509.3000 ####[facility] [address] [place], [address] Sodium [Moles/Vol] 142 mmol/L Normal 136-145 [facility] Comment on above: Order Comment: Order Date: 12/07/23Order Info: [id number] - CMPOrder Info: [id number] - LIPIDOrder Date: 12/12/23Order Info: [id number] - TSH Performed By: #### L 500.4050, L100.0500, L500.4100, L509.3000 ####[facility] [address] [place], [address] T PROT 7.3 g/dL Normal 6.4-8.2 [facility] Comment on above: Order Comment: Order Date: 12/07/23Order Info: 785- - CMPOrder Info: [id number] - LIPIDOrder Date: 12/12/23Order Info: [id number] - TSH Performed By: #### L 500.4050, L100.0500, L500.4100, L509.3000 ####[facility] [address] [place], [address] Urea nitrogen [Mass/Vol] 19 mg/dL High 7-18 [facility] Comment on above: Order Comment: Order Date: 12/07/23Order Info: [id number] - CMPOrder Info: [id number] - LIPIDOrder Date: 12/12/23Order Info: [id number] - TSH Performed By: #### L 500.4050, L100.0500, L500.4100, L509.3000 ####[facility] [address] [place], [address] Lipid Profileon 12-16-2023 Cholesterol [Mass/Vol] 158 mg/dL Normal 200 [facility] Comment on above: Order Comment: Order Date: 12/07/23Order Info: 07-1 - CMPOrder Info: [id number] - LIPIDOrder Date: 12/12/23Order Info: [id number] - TSH Result Comment: <200 mg/dL Desirable 200-240 mg/dL Borderline >240 mg/dL High Risk Performed By: #### L 500.4050, L100.0500, L500.4100, L509.3000 ####[facility] [address] [place], [address] Cholesterol in HDL [Mass/Vol] 37 mg/dL Low [facility] Comment on above: Order Comment: Order Date: 12/07/23Order Info: 07- - CMPOrder Info: [id number] - LIPIDOrder Date: 12/12/23Order Info: [id number] - TSH Result Comment: The drugs N-Acetylcysteine and Metamizole may falsely depress this assay. Reference Range HDL <40 mg/dL Low HDL Cholesterol HDL >or= 60 mg/dL High HDL Cholesterol Performed By: #### L 500.4050, L100.0500, L500.4100, L509.3000 ####[facility] [address] [place], [address] Cholesterol in LDL [Mass/Vol] 84 mg/dL Normal 0-130 [facility] Comment on above: Order Comment: Order Date: 12/07/23Order Info: [id number]- - CMPOrder Info: [id number] - LIPIDOrder Date: 12/12/23Order Info: 6-3 - TSH Performed By: #### L 500.4050, L100.0500, L500.4100, L509.3000 ####[facility] [address] [place], [address] Cholesterol in VLDL [Mass/Vol] 37 mg/dL Normal 5-40 [facility] Comment on above: Order Comment: Order Date: 12/07/23Order Info: 07- - CMPOrder Info: [id number] - LIPIDOrder Date: 12/12/23Order Info: 6-3 - TSH Performed By: #### L 500.4050, L100.0500, L500.4100, L509.3000 ####[facility] [address] [place], [address] Triglyceride [Mass/Vol] 184 mg/dL Normal [facility] Comment on above: Order Comment: Order Date: 12/07/23Order Info: [id number] - CMPOrder Info: [id number] - LIPIDOrder Date: 12/12/23Order Info: [id number] - TSH Result Comment: The drugs N-Acetylcysteine and Metamizole may falsely depress this assay. Serum Triglycerides Reference Interval Normal <150 mg/dL Borderline high 150 - 199 mg/dL High 200 - 499 mg/dL Very High > or = 500 mg/dL Performed By: #### L 500.4050, L100.0500, L500.4100, L509.3000 ####[facility] [address] [place], [address] Thyroid Stim Hormone (TSH)on 12-16-2023 TSH 1.520 uIU/mL Normal 0.358-3.740 [facility] Comment on above: Order Comment: Order Date: 12/07/23 Order Info: [id number] - CMP Order Info: [id number] - LIPID Order Date: 12/12/23 Order Info: [id number] - TSH Performed By: #### L 501.9520, L3100.5310 #### [facility] [address] [place], [place], [address] Absolute lymphocyte countOrd ered By: Catalina Polk on 04-22-2023 Lymphocytes Auto (Unsp spec) [#/Vol] 1.72 10*3/uL 0.83-4.51 [facility] Automated lymphocyte count a s percentage of total leukocytesOrdered By: Catalina Polk on 04-22-2023 Lymphocytes/100 WBC Auto (Unsp spec) 36.6 % 19-41 [facility] Basophil percentageOrdered B y: Catalina Polk on 04-22-2023 Basophils/100 WBC (Bld) 0.4 % 0-1 [facility] Chloride [Moles/Vol] 112 mmol/L 98-107 [facility] Cholesterol [Mass/Vol] 162 mg/dL <200 [facility] Comment on above: <200 mg/dL Desirable 200-240 mg/dL Borderline >240 mg/dL High Risk Eosinophils/100 WBC (Bld) 3.6 % 0-5 [facility] Glucose [Mass/Vol] 85 mg/dL 74-106 [facility] Hemoglobin (Bld) [Mass/Vol] 15.2 g/dL 13.0-16.5 [facility] Monocytes/100 WBC (Bld) 15.7 % 0-10 [facility] Neutrophils (Bld) [#/Vol] 2.0 10*3/uL 2.0-7.7 [facility] Neutrophils/100 WBC (Bld) 43.5 % 47-70 [facility] Potassium [Moles/Vol] 4.1 mmol/L 3.5-5.1 [facility] Sodium [Moles/Vol] 143 mmol/L 136-145 [facility] Testosterone [Mass/Vol] 435.88 ng/dL [facility] Comment on above: CENTRAL 90% REFERENC E RANGES MALE AGE <50 197.44 - 669.58 ng/dL MALE AGE > or = 50 187.72 - 684.19 ng/dL FEMALE AGE <50 8.38 - 35.01 ng/dL FEMALE AGE > or = 50 <7.00 - 35.92 ng/dL Effective as of 09/15/20 Triglyceride [Mass/Vol] 60 mg/dL <[address] [facility] Comment on above: The drugs N-Acetylcy steine and Metamizole may falsely depress this assay.Serum Triglycerides Reference Interval Normal <150 mg/dL Borderline high 150 - 199 mg/dL High 200 - 499 mg/dL Very High > or = 500 mg/dL WBC (Bld) [#/Vol] 4.7 10*3/uL 4.4-11.0 [facility] Determination of erythrocyte mean corpuscular volume (MCV)Ordered By: Catalina Polk on 04-22-2023 MCV (RBC) [Entitic vol] 84.1 fL 80-94 [facility] Erythrocyte distribution wid th ratioOrdered By: Catalina Polk on 04-22-2023 Erythrocyte distribution width (RBC) [Ratio] 12.4 % 11.6-14.6 [facility] Erythrocyte distribution wid th standard deviationOrdered By: Catalina Polk on 04-22-2023 Erythrocyte distribution width (RBC) [Entitic vol] 37.5 fL 35.1-43.9 [facility] Hematocrit Auto (Bld) [Volum e fraction]Ordered By: Catalina Polk on 04-22-2023 Hematocrit (Bld) [Volume fraction] 46.6 % 40-54 [facility] Immature granulocytes/100 WB C Auto (Bld)Ordered By: Catalina Polk on 04-22-2023 Immature granulocytes/100 WBC (Bld) 0.200 % 0.0-0.9 [facility] Comment on above: IG% - Immature Granu locytes (promyelocytes, myelocytes and metamyelocytes) > 1% indicates that a LEFT SHIFT is Present. Laboratory - Chemistry and C hemistry - challengeOrdered By: Catalina Polk on 04-22-2023 Cholesterol in HDL [Mass/Vol] 46 mg/dL >40 [facility] Comment on above: The drugs N-Acetylcy steine and Metamizole may falsely depress this assay. Reference Range HDL <40 mg/dL Low HDL Cholesterol HDL >or= 60 mg/dL High HDL Cholesterol Cholesterol in LDL [Mass/Vol] 104 mg/dL 0-130 [facility] CO2 [Moles/Vol] 27.0 mmol/L 21.0-32.0 [facility] Urea nitrogen/Creatinine [Mass ratio] 17.9 mg/mg 10-20 [facility] Laboratory - Hematology and Cell countsOrdered By: Catalina Polk on 04-22-2023 MCH (RBC) [Entitic mass] 27.4 pg 27.0-32.0 [facility] MCHC (RBC) [Mass/Vol] 32.6 g/dL 32-36 [facility] Nucleated RBC/100 WBC (Bld) [Ratio] 0 % 0-5 [facility] Platelet mean volume (Bld) [Entitic vol] 10.9 fL 6.2-12.0 [facility] Platelets (Bld) [#/Vol] 197 10*3/uL 150-450 [facility] No Panel InformationOrdered By: Catalina Polk on 04-22-2023 Estimated GFR (MDRD) Amer 91 mL/min >60 [facility] Comment on above: GFR Calc Estimated GFR (MDRD) Non-Af Amer 76 mL/min >60 [facility] Comment on above: Non- GFR Calc Urine Microalbumin/Creatinine Ratio 8.7 mg/g CRE <30 [facility] VLDL Cholesterol 12 mg/dL 5-40 [facility] RBC Auto (Bld) [#/Vol]Ordere d By: Catalina Polk on 04-22-2023 RBC (Bld) [#/Vol] 5.54 10*6/uL 4.6-6.2 [facility] Serum or plasma calcium rosalio urement (mass/volume)Ordered By: Catalina Polk on 04-22-2023 Calcium [Mass/Vol] 9.5 mg/dL 8.5-10.1 [facility] Serum or plasma creatinine m easurement (mass/volume)Ordered By: Catalina Polk on 04-22-2023 Creatinine [Mass/Vol] 1.12 mg/dL 0.70-1.30 [facility] Comment on above: The validity of the calculated GFR & GFRAA in patients over 70 years has not been determined. Clinical correlation is essential. Serum or plasma urea nitroge n measurement (mass/volume)Ordered By: Catalina Polk on 04-22-2023 Urea nitrogen [Mass/Vol] 20 mg/dL 7-18 [facility] Thin prep Papanicolaou smear with manual screeningOrdered By: Catalina Polk on 04-22-2023 Thin prep Papanicolaou smear with manual screening 4 5-15 [facility] Thin prep Papanicolaou smear with manual screening 19.1 mg/L NO RANGE EST. [facility] Urine creatinine measurement (mass/volume)Ordered By: Catalina Polk on 04-22-2023 Creatinine (U) [Mass/Vol] 220.00 mg/dL NO RANGE EST. [facility] Basophil percentageOrdered B y: Kacy Valenzuela on 11-09-2022 Testosterone [Mass/Vol] 252 ng/dL 264-916 [facility] Comment on above: Adult male reference interval is based on a population ofhealthy nonobese males (BMI <30) between 19 and 39 yearsold. alfredito Santiago.al. JCEM 2017,102;8543-1351. PMID:[id number]. Free testosterone percentage Ordered By: Kacy Valenzuela on 11-09-2022 Testosterone Free/Testosterone.total [Mass fraction] 2.66 % 1.50-4.20 [facility] Comment on above: Performed at: [employer] [facility] [address] [id number] Director: Willian Ghotra PhD, Phone: [phone] at: - [facility] [id number] Director: Kale Helm MD, Phone: [phone] Serum or plasma testosterone free measurement (mass/volume)Ordered By: Kacy Valenzuela on 11-09-2022 Testosterone Free [Mass/Vol] 6.70 ng/dL 5.00-21.00 [facility] Absolute lymphocyte countOrd ered By: Catalina Polk on 07-29-2022 Lymphocytes Auto (Unsp spec) [#/Vol] 1.99 10*3/uL 0.83-4.51 [facility] Basophil percentageOrdered B y: Catalina Polk on 07-29-2022 Basophils/100 WBC (Bld) 0.3 % 0-1 [facility] Cholesterol [Mass/Vol] 153 mg/dL <200 [facility] Comment on above: <200 mg/dL Desirable 200-240 mg/dL Borderline >240 mg/dL High Risk Eosinophils/100 WBC (Bld) 3.0 % 0-5 [facility] Neutrophils (Bld) [#/Vol] 3.0 10*3/uL 2.0-7.7 [facility] Neutrophils/100 WBC (Bld) 49.0 % 47-70 [facility] Testosterone [Mass/Vol] 763.42 ng/dL [facility] Comment on above: CENTRAL 90% REFERENC E RANGES MALE AGE <50 197.44 - 669.58 ng/dL MALE AGE > or = 50 187.72 - 684.19 ng/dL FEMALE AGE <50 8.38 - 35.01 ng/dL FEMALE AGE > or = 50 <7.00 - 35.92 ng/dL Effective as of 09/15/20 Triglyceride [Mass/Vol] 137 mg/dL <199 [facility] Comment on above: The drugs N-Acetylcy steine and Metamizole may falsely depress this assay.Serum Triglycerides Reference Interval Normal <150 mg/dL Borderline high 150 - 199 mg/dL High 200 - 499 mg/dL Very High > or = 500 mg/dL WBC (Bld) [#/Vol] 6.1 10*3/uL 4.4-11.0 [facility] Blood erythrocytes count (nu mber/volume)Ordered By: Catalina Polk on 07-29-2022 RBC (Bld) [#/Vol] 6.30 10*6/uL 4.6-6.2 [facility] Blood hemoglobin measurement (mass/volume)Ordered By: Catalina Polk on 07-29-2022 Hemoglobin (Bld) [Mass/Vol] 16.3 g/dL 13.0-16.5 [facility] Blood lymphocytes/100 leukoc ytesOrdered By: Catalina Polk on 07-29-2022 Lymphocytes/100 WBC (Bld) 32.7 % 19-41 [facility] Blood monocytes/100 leukocyt esOrdered By: Catalina Polk on 07-29-2022 Monocytes/100 WBC (Bld) 14.8 % 0-10 [facility] Blood platelet mean volumeOr dered By: Catalina Polk on 07-29-2022 Platelet mean volume (Bld) [Entitic vol] 11.0 fL 6.2-12.0 [facility] Determination of erythrocyte mean corpuscular volume (MCV)Ordered By: Catalina Polk on 07-29-2022 MCV (RBC) [Entitic vol] 81.7 fL 80-94 [facility] Hematocrit Auto (Bld) [Volum e fraction]Ordered By: Catalina Polk on 07-29-2022 Hematocrit (Bld) [Volume fraction] 51.5 % 40-54 [facility] Laboratory - Hematology and Cell countsOrdered By: Catalina Polk on 07-29-2022 Erythrocyte distribution width (RBC) [Entitic vol] 40.0 fL 35.1-43.9 [facility] Erythrocyte distribution width (RBC) [Ratio] 13.4 % 11.6-14.6 [facility] Immature granulocytes/100 WBC (Bld) 0.200 % 0.0-0.9 [facility] Comment on above: IG% - Immature Granu locytes (promyelocytes, myelocytes and metamyelocytes) > 1% indicates that a LEFT SHIFT is Present. MCH (RBC) [Entitic mass] 25.9 pg 27.0-32.0 [facility] Nucleated RBC/100 WBC (Bld) [Ratio] 0 % 0-5 [facility] MCHC Auto (RBC) [Mass/Vol]Or dered By: Catalina Polk on 07-29-2022 MCHC (RBC) [Mass/Vol] 31.7 g/dL 32-36 [facility] No Panel InformationOrdered By: Catalina Polk on 07-29-2022 Prostate Specific Antigen Screen 0.42 ng/mL 0.00-4.00 [facility] Comment on above: This test was perfor med using the TPSA assay method for the[facility] specialty hospital chemistry system. Values obtained with differentassay methods cannot be used interchangably.When changing PSA assays in the course of monitoring apatient, additional sequential testing should be carriedout to confirm baseline values. Platelets bldOrdered By: Catalina Polk on 07-29-2022 Platelets (Bld) [#/Vol] 198 10*3/uL 150-450 [facility] Serum or plasma cholesterol in HDL measurement (mass/volume)Ordered By: Catalina Polk on 07-29-2022 Cholesterol in HDL [Mass/Vol] 41 mg/dL >40 [facility] Comment on above: The drugs N-Acetylcy steine and Metamizole may falsely depress this assay. Reference Range HDL <40 mg/dL Low HDL Cholesterol HDL >or= 60 mg/dL High HDL Cholesterol Serum or plasma cholesterol in VLDL measurement (mass/volume)Ordered By: Catalina Polk on 07-29-2022 Cholesterol in VLDL [Mass/Vol] 27 mg/dL 5-40 [facility] Serum or plasma low density lipoprotein (LDL) cholesterol measurement (mass/volume)Ordered By: Catalina Polk on 07-29-2022 Cholesterol in LDL [Mass/Vol] 85 mg/dL 0-130 [facility] Absolute lymphocyte counton 06-09-2021 Lymphocytes Auto (Unsp spec) [#/Vol] 1.81 10*3/uL 0.83-4.51 [facility] Work Phone: Basophil percentageon 2021 Basophils/100 WBC (Bld) 0.6 % 0-1 [facility] Work Phone: [phone] Cholesterol [Mass/Vol] 134 mg/dL <200 [facility] Work Phone: [phone] Comment on above: <200 mg/dL Desirable 200-240 mg/dL Borderline >240 mg/dL High Risk Eosinophils/100 WBC (Bld) 2.9 % 0-5 [facility] Work Phone: Neutrophils (Bld) [#/Vol] 2.2 10*3/uL 2.0-7.7 [facility] Work Phone: Neutrophils/100 WBC (Bld) 43.3 % 47-70 [facility] Work Phone: Testosterone [Mass/Vol] 170.05 ng/dL [facility] Work Phone: Comment on above: CENTRAL 90% REFERENC E RANGES MALE AGE <50 197.44 - 669.58 ng/dL MALE AGE > or = 50 187.72 - 684.19 ng/dL FEMALE AGE <50 8.38 - 35.01 ng/dL FEMALE AGE > or = 50 <7.00 - 35.92 ng/dL Effective as of 09/15/20 Triglyceride [Mass/Vol] 82 mg/dL [facility] Work Phone: Comment on above: The drugs N-Acetylcy steine and Metamizole may falsely depress this assay.Serum Triglycerides Reference Interval Normal <150 mg/dL Borderline high 150 - 199 mg/dL High 200 - 499 mg/dL Very High > or = 500 mg/dL WBC (Bld) [#/Vol] 5.2 10*3/uL 4.4-11.0 [facility] Work Phone: Blood erythrocytes count (nu mber/volume)on 06-09-2021 RBC (Bld) [#/Vol] 5.73 10*6/uL 4.6-6.2 [facility] Work Phone: Blood hemoglobin measurement (mass/volume)on 06-09-2021 Hemoglobin (Bld) [Mass/Vol] 15.8 g/dL 13.0-16.5 [facility] Work Phone: [phone] Blood lymphocytes/100 leukoc yteson 06-09-2021 Lymphocytes/100 WBC (Bld) 35.0 % 19-41 [facility] Work Phone: [phone] Blood monocytes/100 leukocyt eson 06-09-2021 Monocytes/100 WBC (Bld) 18.2 % 0-10 [facility] Work Phone: [phone] Blood platelet mean volumeon 06-09-2021 Platelet mean volume (Bld) [Entitic vol] 10.6 fL 6.2-12.0 [facility] Work Phone: [phone] Determination of erythrocyte mean corpuscular volume (MCV)on 06-09-2021 MCV (RBC) [Entitic vol] 83.1 fL 80-94 [facility] Work Phone: [phone] Hematocrit Auto (Bld) [Volum e fraction]on 06-09-2021 Hematocrit (Bld) [Volume fraction] 47.6 % 40-54 [facility] Work Phone: Laboratory - Hematology and Cell countson 06-09-2021 Erythrocyte distribution width (RBC) [Entitic vol] 37.5 fL 35.1-43.9 [facility] Work Phone: [phone] Erythrocyte distribution width (RBC) [Ratio] 12.4 % 11.6-14.6 [facility] Work Phone: [phone] Immature granulocytes/100 WBC (Bld) 0.000 % 0.0-0.9 [facility] Work Phone: [phone] Comment on above: IG% - Immature Granu locytes (promyelocytes, myelocytes and metamyelocytes) > 1% indicates that a LEFT SHIFT is Present. MCH (RBC) [Entitic mass] 27.6 pg 27.0-32.0 [facility] Work Phone: Nucleated RBC/100 WBC (Bld) [Ratio] 0 % 0-5 [facility] Work Phone: [phone] MCHC Auto (RBC) [Mass/Vol]on 06-09-2021 MCHC (RBC) [Mass/Vol] 33.2 g/dL 32-36 [facility] Work Phone: Platelets bldon 06-09-2021 Platelets (Bld) [#/Vol] 186 10*3/uL 150-450 [facility] Work Phone: [phone] Serum or plasma cholesterol in HDL measurement (mass/volume)on 06-09-2021 Cholesterol in HDL [Mass/Vol] 34 mg/dL [facility] Work Phone: Comment on above: The drugs N-Acetylcy steine and Metamizole may falsely depress this assay. Reference Range HDL <40 mg/dL Low HDL Cholesterol HDL >or= 60 mg/dL High HDL Cholesterol Serum or plasma cholesterol in VLDL measurement (mass/volume)on 06-09-2021 Cholesterol in VLDL [Mass/Vol] 16 mg/dL 5-40 [facility] Work Phone: Serum or plasma low density lipoprotein (LDL) cholesterol measurement (mass/volume)on 06-09-2021 Cholesterol in LDL [Mass/Vol] 84 mg/dL 0-130 [facility] Work Phone: Whole blood hemoglobin A1c/t otal hemoglobin ratio (mass fraction)on 06-09-2021 HbA1c (Bld) [Mass fraction] 5.1 % 3.8-5.6 [facility] Work Phone: Comment on above: Normal < 5.7 % Predi abetic 5.7 - 6.4 % Diabetic >or= 6.5 % Please note range changes. .Auto Diffon 04-16-2021 Basophil, Absolute 0.00 10 3/mcL Normal 0.00-0.19 [facility] ([place] Comment on above: Performed By: #### C BC, ADIFF, ANEU, BMP, TROPHS, GFR #### [address] [address] Basophils/100 WBC (Bld) 0.5 % Normal 0.0-2.5 [facility] ([place] Comment on above: Performed By: #### C BC, ADIFF, ANEU, BMP, TROPHS, GFR #### [address] [address] Eosinophil, Absolute 0.10 10 3/mcL Normal 0.00-0.40 [facility] ([place] Comment on above: Performed By: #### C BC, ADIFF, ANEU, BMP, TROPHS, GFR #### [address] [address] Eosinophils/100 WBC (Bld) 2.1 % Normal 0.0-7.0 [facility] ([place] Comment on above: Performed By: #### C BC, ADIFF, ANEU, BMP, TROPHS, GFR #### [address] [address] Lymphocyte, Absolute 1.90 10 3/mcL Normal 0.77-3.85 [facility] ([place] Comment on above: Performed By: #### C BC, ADIFF, ANEU, BMP, TROPHS, GFR #### [address] [address] Lymphocytes/100 WBC (Bld) 32.8 % Normal 10.0-50.0 [facility] ([place] Comment on above: Performed By: #### C BC, ADIFF, ANEU, BMP, TROPHS, GFR #### [address] [address] Monocyte, Absolute 0.80 10 3/mcL Normal 0.15-1.00 [facility] ([place] Comment on above: Performed By: #### C BC, ADIFF, ANEU, BMP, TROPHS, GFR #### [address] [address] Monocytes/100 WBC (Bld) 13.4 % High 1.7-13.0 [facility] ([place] Comment on above: Performed By: #### C BC, ADIFF, ANEU, BMP, TROPHS, GFR #### [address] [address] Neutrophils/100 WBC (Bld) 51.2 % Normal 37.0-80.0 [facility] ([place] Comment on above: Performed By: #### C BC, ADIFF, ANEU, BMP, TROPHS, GFR #### [address] [address] .GFRon 04-16-2021 GFR 100 ml/min/1.73sqm Normal [facility] ([place] Comment on above: Result Comment: GFR Population [...] BC, ADIFF, ANEU, BMP, TROPHS, GFR #### [address] [address] GFR Non- 83 ml/min/1.73sqm Normal [facility] ([place] Comment on above: Result Comment: GFR Population [...] BC, ADIFF, ANEU, BMP, TROPHS, GFR #### [address] [address] .NEUABSon 04-16-2021 Neutrophil, Absolute 3.00 10 3/mcL Normal 2.85-6.16 [facility] ([place] Comment on above: Performed By: #### C BC, ADIFF, ANEU, BMP, TROPHS, GFR #### [address] [address] BMPon 04-16-2021 BUN/Creatinine Ratio 15 ratio Normal 7-27 [facility] ([place] Comment on above: Performed By: #### C BC, ADIFF, ANEU, BMP, TROPHS, GFR #### [address] [address] Calcium [Mass/Vol] 8.6 mg/dL Normal 8.4-10.2 Pending sale to [facility] ([place] Comment on above: Performed By: #### C BC, ADIFF, ANEU, BMP, TROPHS, GFR #### [address] [address] Chloride [Moles/Vol] 105 mmol/L Normal 98-107 [facility] ([place] Comment on above: Performed By: #### C BC, ADIFF, ANEU, BMP, TROPHS, GFR #### [address] [address] CO2 [Moles/Vol] 25 mmol/L Normal 22-29 [facility] ([place] Comment on above: Performed By: #### C BC, ADIFF, ANEU, BMP, TROPHS, GFR #### [address] [address] Creatinine [Mass/Vol] 0.99 mg/dL Normal 0.70-1.30 [facility] ([place] Comment on above: Performed By: #### C BC, ADIFF, ANEU, BMP, TROPHS, GFR #### [address] [address] Electrolyte Balance 11.0 mEq/L Normal 4.0-15.0 [facility] ([place] Comment on above: Performed By: #### C BC, ADIFF, ANEU, BMP, TROPHS, GFR #### [address] [address] Glucose [Mass/Vol] 109 mg/dL High 70-105 Pending [facility] to [facility] ([place] Comment on above: Performed By: #### C BC, ADIFF, ANEU, BMP, TROPHS, GFR #### [address] [address] Potassium [Moles/Vol] 4.0 mmol/L Normal 3.5-5.1 [facility] ([place] Comment on above: Performed By: #### C BC, ADIFF, ANEU, BMP, TROPHS, GFR #### [address] [address] Sodium [Moles/Vol] 141 mmol/L Normal 136-145 Pending [facility] to [facility] ([place] Comment on above: Performed By: #### C BC, ADIFF, ANEU, BMP, TROPHS, GFR #### [address] [address] Urea nitrogen [Mass/Vol] 15 mg/dL Normal 7-18 [facility] ([place] Comment on above: Performed By: #### C BC, ADIFF, ANEU, BMP, TROPHS, GFR #### [address] [address] CBCon 04-16-2021 Erythrocyte distribution width (RBC) [Ratio] 13.1 % Normal 11.5-14.5 [facility] ([place] Comment on above: Performed By: ####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
[2024-11-20 12:08] LABS: Testosterone, % Free 4.55 % (1.50-4.20); Testosterone, Free 8.92 ng/dL (5.00-21.00)
== END | disposition home or self-care (01) ==
LOC: MTLAB 07:17
PROVIDERS: PCP Family Medicine; Referring Provider Family Medicine; Visit Provider Family Medicine
DX: E34.9 Endocrine disorder, unspecified (principal)
CPT/HCPCS: 36415; 84402; 84403

== ENCOUNTER → 2024-11-15 | Outpatient (CLI) | payer OTHER, SELFPAY ==
--- OUTSIDE RECORDS SUMMARY | 2024-11-15 09:33 | XMS RPT_ITS | CCD ---
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 reference interval is based on a population of healthy nonobese males (BMI <30) between 19 and 39 years old. Pamela et.al. JCEM 2017,102;8507-3325. PMID: 09529497. Performed By: #### L 3100.5310 ####[facility] [address] [place], [place], [address] TESTOSTERONE,%F 2.76 Normal 1.50-4.20 [facility] Comment on above: Order Comment: Order Date: 03/19/24Order Info: 0024-1 - TESTFN Result Comment: Perf ormed at: [facility] [id number] Carnival Worker: Willian Ghotra PhD, Phone: [phone] Performed at: [facility] [address] [id number] Carnival Worker: Kale Helm MD, Phone: [phone] Performed By: #### L 3100.5310 ####[facility] [address] [place], [place], [address] CNOVon 04-20-2024 CNOV Office Visit (UCWSTR ) BRENDAPETER VALENZUELA ([id number]) 1980 M Date Time Provider Department 04/20/24 3:00 PM GREGG IBARRA [facility] During your visit today, we recorded the [...] 0 03 (more content not included)... Normal [facility] Free testosterone percentage Ordered By: Rajiv Hopkins on 04-19-2024 Testosterone Free/Testosterone.total [Mass fraction] 2.76 % 1.50-4.20 [facility] Comment on above: Performed at: [facility] [address] [id number] Director: Willian Ghotra PhD, Phone: [phone] at: [address] [id number] Director: Kale Helm MD, Phone: [phone] Serum or plasma free testost erone measurement (mass/volume)Ordered By: Rajiv Kellie on 04-19-2024 Testosterone Free [Mass/Vol] 15.51 ng/dL 5.00-21.00 [facility] Testosterone Free [Mass/Vol] Ordered By: Rajiv Hopkins on 04-19-2024 Free Testosterone 15.51 ng/dL 5.00-21.00 [facility] Testosterone Free/Testostero ne.total [Mass fraction]Ordered By: Rajiv Hopkins on 04-19-2024 Percent Free Testosterone 2.76 % 1.50-4.20 [facility] Comment on above: Performed at: [address] [id number] Director: Willian Ghotra PhD, Phone: [phone] at: - [facility] [id number] Director: Kale Helm MD, Phone: [phone] Testosterone, totalOrdered B y: Rajiv Hopkins on 04-19-2024 Testosterone [Mass/Vol] 562 ng/dL 264-916 [facility] Comment on above: Adult male reference interval is based on a population ofhealthy nonobese males (BMI <30) between 19 and 39 yearsold. alfredito Santiago.al. JCEM 2017,102;2099-2220. PMID:[id number]. Urgent Care Visit Reporton 0 04-19-2024 Urgent Care Visit Report [facility] [address], [address] [place] [address] OFFICE VISIT Date of Service: 04/19/24 MR#: [id number] Acct: [id number] Name: RENÉ KNOX Rep #: [id number] : 1980 Provider: WILMER Yanes Age/Sex: 43/M [place] [facility] [place] Status: Signed Intake Vital Signs 07/03/23 07:41 04/19/24 17:07 Height 5 ft 11 in BP 122/60 H Blood Pressure Location Lt brachial Position Sitting Respiration 15 Pulse 58 L Pulse Source NIBP Temp 98.2 F Temp Source Oral Pulse Oximetry (%) 96 Oxygen Delivery Method room air Intake Visit Reasons: ITCHY EAR, EAR PAIN Chief Complaint: LEFT EAR PAIN, LEFT EYE ITCH Copy Cutter Required: No Is patient in pain?: Yes Allergies No Known Allergies Allergy (Verified 04/19/24 17:08) Have you fallen in the past year?: No Nurse's Note: LEFT EAR PAIN, DENIES DRAINAGE OR BLOOD. LEFT EYE ITCH, DENIES TEARING/[facility] Medical History (Updated 04/19/24 @ 17:18 by Torsten GUILLEN, WILMER) Wears glasses Non-smoker BiPAP (biphasic positive airway pressure) dependence Sleep apnea History of irregular heartbeat HTN (hypertension) Family hx of colon cancer Hx of colonic polyp Acute bronchitis, unspecified Surgical History (Updated 05/19/23 @ 11:09 by Rohini Hernandez) Hx of colonoscopy Social History (Updated 05/19/23 @ 11:09 by Rohini Hernandez) household members: spouse and children current occupational status: employed current occupation: [employer] Smoking Status: Never smoker alcohol intake: never [...] Exam Const General: cooperative and healthy appearing [facility] Head: normocephalic and atraumatic Ears: hearing grossly [...] Roper Signature: Date (if applicable) CC: Normal [facility] Testosterone, Total / Freeon 01-13-2024 TESTOSTER,FREE 20.97 ng/dL Normal 5.00-21.00 [facility] Comment on above: Order Comment: Order Date: 12/21/23 Order Info: 0024-1 - TESTF N Performed By: #### L 3100.5310 #### [facility] [address] [place], [place], [address] TESTOSTER,TOTAL 497 ng/dL Normal 264-916 [facility] Comment on above: Order Comment: Order Date: 12/21/23 Order Info: 0024-1 - TESTF N Result Comment: Adul t male reference interval is based on a population of healthy nonobese males (BMI <30) between 19 and 39 years old. alfredito Santiago.al. JCEM 2017,102;0181-8161. PMID: 23757932. Performed By: #### L 3100.5310 #### [facility] [address] [place], [place], [address] TESTOSTERONE,%F 4.22 High 1.50-4.20 [facility] Comment on above: Order Comment: Order Date: 12/21/23 Order Info: 0024-1 - TESTF N Result Comment: Perf ormed at: [place] [id number] [place], [place] [id number] Carnival Worker: Willian Ghotra PhD, Phone: [phone] Performed at: [address] [id number] Carnival Worker: Kale Helm MD, Phone: [phone] Performed By: #### L 3100.5310 #### [facility] [address] [place], [place], [address] Testosterone Free [Mass/Vol] Ordered By: Rajiv Hopkins on 01-05-2024 Free Testosterone 20.97 ng/dL 5.00-21.00 [facility] Testosterone Free/Testostero ne.total [Mass fraction]Ordered By: Rajiv Hopkins on 01-05-2024 Percent Free Testosterone 4.22 % High 1.50-4.20 [facility] Comment on above: Performed at: [facility] [place] [id number] Director: Willian Ghotra PhD, Phone: [phone] at: [address] [id number] Director: Kale Helm MD, Phone: [phone] Testosterone, totalOrdered B y: Rajiv Hopkins on 01-05-2024 Testosterone [Mass/Vol] 497 ng/dL 264-916 [facility] Comment on above: Adult male reference interval is based on a population ofhealthy nonobese males (BMI <30) between 19 and 39 yearsold. alfredito Santiago.al. JCEM 2017,102;7531-2768. PMID:49399080. Testosterone, Total / Freeon 12-22-2023 TESTOSTER,FREE 2.63 ng/dL Abnormal 5.00-21.00 [facility] Comment on above: Order Comment: Order Date: 12/12/23 Order Info: 0024-1 - TESTF N Performed By: #### L 501.9520, L3100.5310 #### [facility] [address] [place], [address] TESTOSTER,TOTAL 90 ng/dL Low 264-916 [facility] Comment on above: Order Comment: Order Date: 12/12/23 Order Info: 0024-1 - TESTF N Result Comment: Adul t male reference interval is based on a population of healthy nonobese males (BMI <30) between 19 and 39 years old. Pamela, et.al. JCEM 2017,102;8898-8316. PMID: 31636753. Performed By: #### L 501.9520, L3100.5310 #### [facility] [address] [place], [address] TESTOSTERONE,%F 2.92 Normal 1.50-4.20 [facility] Comment on above: Order Comment: Order Date: 12/12/23 Order Info: 0024-1 - TESTF N Result Comment: Perf ormed at: [facility] [id number] Carnival Worker: Willian Ghotra PhD, Phone: [phone] Performed at: - [facility] [id number] Carnival Worker: Kale Helm MD, Phone: [phone] Performed By: #### L 501.9520, L3556.5310 #### [facility] [address] [place], [address] Testosterone, Serum Totalon 12-18-2023 Testosterone [Mass/Vol] 85.17 ng/dL Normal [facility] Comment on above: Order Comment: Order [...] By: #### L 500.4050, L100.0500, L500.4100, L509.3000 ####[facility] [address] [place], [address] CBC-Complete Blood Cnt No Di ffon 12-16-2023 Erythrocyte distribution width (RBC) [Ratio] 13.7 % Normal 11.6-14.6 [facility] Comment on above: Order Comment: Order Date: 12/07/23Order Info: [id number] - CBC Performed By: #### L 500.4050, L100.0500, L500.4100, L509.3000 ####[facility] [address] [place], [address] Hematocrit (Bld) [Volume fraction] 46.7 % Normal 40-54 [facility] Comment on above: Order Comment: Order Date: 12/07/23Order Info: [id number] - CBC Performed By: #### L 500.4050, L100.0500, L500.4100, L509.3000 ####[facility] [address] [place], [address] Hemoglobin (Bld) [Mass/Vol] 14.6 g/dL Normal 13.0-16.5 [facility] Comment on above: Order Comment: Order Date: 12/07/23Order Info: [id number] - CBC Performed By: #### L 500.4050, L100.0500, L500.4100, L509.3000 ####[facility] [address] [place], [address] MCH (RBC) [Entitic mass] 24.7 pg Low 27.0-32.0 [facility] Comment on above: Order Comment: Order Date: 12/07/23Order Info: [id number] - CBC Performed By: #### L 500.4050, L100.0500, L500.4100, L509.3000 ####[facility] [address] [place], [address] MCHC (RBC) [Mass/Vol] 31.3 g/dL Low 32-36 [facility] Comment on above: Order Comment: Order Date: 12/07/23Order Info: [id number] - CBC Performed By: #### L 500.4050, L100.0500, L500.4100, L509.3000 ####[facility] [address] [place], [address] MCV (RBC) [Entitic vol] 79.2 fL Low 80-94 [facility] Comment on above: Order Comment: Order Date: 12/07/23Order Info: [id number] - CBC Performed By: #### L 500.4050, L100.0500, L500.4100, L509.3000 ####[facility] [address] [place], [address] Platelet mean volume (Bld) [Entitic vol] 10.7 fL Normal 6.2-12.0 [facility] Comment on above: Order Comment: Order Date: 12/07/23Order Info: [id number] - CBC Performed By: #### L 500.4050, L100.0500, L500.4100, L509.3000 ####[facility] [address] [place], [address] Platelets (Bld) [#/Vol] 192 10*3/uL Normal 150-450 [facility] Comment on above: Order Comment: Order Date: 12/07/23Order Info: [id number] - CBC Performed By: #### L 500.4050, L100.0500, L500.4100, L509.3000 ####[facility] [address] [place], [address] RBC (Bld) [#/Vol] 5.90 10*6/uL Normal 4.6-6.2 [facility] Comment on above: Order Comment: Order Date: 12/07/23Order Info: [id number] - CBC Performed By: #### L 500.4050, L100.0500, L500.4100, L509.3000 ####[facility] [address] [place], [address] RDW SD 39.6 fl Normal 35.1-43.9 [facility] Comment on above: Order Comment: Order Date: 12/07/23Order Info: [id number] - CBC Performed By: #### L 500.4050, L100.0500, L500.4100, L509.3000 ####[facility] [address] [place], [address] WBC (Bld) [#/Vol] 5.7 10*3/uL Normal 4.4-11.0 [facility] Comment on above: Order Comment: Order Date: 12/07/23Order Info: [id number] - CBC Performed By: #### L 500.4050, L100.0500, L500.4100, L509.3000 ####[facility] [address] [place], [address] Comprehensive Metabolic Prof nyon 12-16-2023 Albumin [Mass/Vol] 3.7 g/dL Normal 3.2-5.0 [facility] Comment on above: Order Comment: Order Date: 12/07/23Order Info: 0786-1 - CMPOrder Info: [id number] - LIPIDOrder Date: 12/12/23Order Info: [id number] - TSH Performed By: #### L 500.4050, L100.0500, L500.4100, L509.3000 ####[facility] [address] [place], [address] Albumin/Globulin [Mass ratio] 1.0 {ratio} Normal 0.9-2.4 [facility] Comment on above: Order Comment: Order Date: 12/07/23Order Info: 0786-1 - CMPOrder Info: [id number] - LIPIDOrder Date: 12/12/23Order Info: 6-3 - TSH Performed By: #### L 500.4050, L100.0500, L500.4100, L509.3000 ####[facility] [address] [place], [address] ALK P 81 U/L Normal 45-117 [facility] Comment on above: Order Comment: Order Date: 12/07/23Order Info: 785-1 - CMPOrder Info: [id number] - LIPIDOrder Date: 12/12/23Order Info: 6-3 - TSH Performed By: #### L 500.4050, L100.0500, L500.4100, L509.3000 ####[facility] [address] [place], [address] ALT [Catalytic activity/Vol] 59 U/L Normal 16-61 [facility] Comment on above: Order Comment: Order Date: 12/07/23Order Info: 785-1 - CMPOrder Info: [id number] - LIPIDOrder Date: 12/12/23Order Info: 6-3 - TSH Performed By: #### L 500.4050, L100.0500, L500.4100, L509.3000 ####[facility] [address] [place], [address] AST [Catalytic activity/Vol] 28 U/L Normal 15-37 [facility] Comment on above: Order Comment: Order Date: 12/07/23Order Info: 785-1 - CMPOrder Info: [id number] - LIPIDOrder Date: 12/12/23Order Info: 6-3 - TSH Performed By: #### L 500.4050, L100.0500, L500.4100, L509.3000 ####[facility] [address] [place], [address] Bilirubin [Mass/Vol] 0.50 mg/dL Normal 0.20-1.00 [facility] Comment on above: Order Comment: Order Date: 12/07/23Order Info: 785- - CMPOrder Info: - LIPIDOrder Date: 12/12/23Order Info: [id number] - TSH Result Comment: For patients on eltrombopag therapy, use of Dimension [place] TBIL is not recommended. Performed By: #### L 500.4050, L100.0500, L500.4100, L509.3000 ####[facility] [address] [place], [address] BUN/CRE 17.3 RATIO Normal 10-20 [facility] Comment on above: Order Comment: Order Date: 12/07/23Order Info: [id number] - CMPOrder Info: - LIPIDOrder Date: 12/12/23Order Info: 6-3 - TSH Performed By: #### L 500.4050, L100.0500, L500.4100, L509.3000 ####[facility] [address] [place], [address] CA,Total 8.9 mg/dL Normal 8.5-10.1 [facility] Comment on above: Order Comment: Order Date: 12/07/23Order Info: [id number] - CMPOrder Info: - LIPIDOrder Date: 12/12/23Order Info: [id number] - TSH Performed By: #### L 500.4050, L100.0500, L500.4100, L509.3000 ####[facility] [address] [place], [address] Chloride [Moles/Vol] 114 mmol/L High 98-107 [facility] Comment on above: Order Comment: Order Date: 12/07/23Order Info: [id number] - CMPOrder Info: - LIPIDOrder Date: 12/12/23Order Info: [id number] - TSH Performed By: #### L 500.4050, L100.0500, L500.4100, L509.3000 ####[facility] [address] [place], [address] CO2 [Moles/Vol] 26.0 mmol/L Normal 21.0-32.0 [facility] Comment on above: Order Comment: Order Date: 12/07/23Order Info: 86-1 - CMPOrder Info: [id number] - LIPIDOrder Date: 12/12/23Order Info: [id number] - TSH Performed By: #### L 500.4050, L100.0500, L500.4100, L509.3000 ####[facility] [address] [place], [address] Creatinine [Mass/Vol] 1.10 mg/dL Normal 0.70-1.30 [facility] Comment on above: Order Comment: Order Date: 12/07/23Order Info: 785-1 - CMPOrder Info: [id number] - LIPIDOrder Date: 12/12/23Order Info: [id number] - TSH Result Comment: The validity of the calculated GFR GFRAA in patients over 70 years has not been determined. Clinical correlation is essential. Performed By: #### L 500.4050, L100.0500, L500.4100, L509.3000 ####[facility] [address] [place], [address] EST GFR - AA 93 mL/min Normal >60 [facility] Comment on above: Order Comment: Order Date: 12/07/23Order Info: 785-1 - CMPOrder Info: [id number] - LIPIDOrder Date: 12/12/23Order Info: [id number] - TSH Result Comment: Afri can Taiwanese GFR Calc Performed By: #### L 500.4050, L100.0500, L500.4100, L509.3000 ####[facility] [address] [place], [address] GAP 2 Low 5-15 [facility] Comment on above: Order Comment: Order Date: 12/07/23Order Info: 86-1 - CMPOrder Info: [id number] - LIPIDOrder Date: 12/12/23Order Info: [id number] - TSH Performed By: #### L 500.4050, L100.0500, L500.4100, L509.3000 ####[facility] [address] [place], [address] GFR/1.73 sq M.predicted among non-blacks MDRD (S/P/Bld) [Vol rate/Area] 77 mL/min/{1.73_m2} Normal >60 [facility] Comment on above: Order Comment: Order Date: 12/07/23Order Info: [id number] - CMPOrder Info: [id number] - LIPIDOrder Date: 12/12/23Order Info: [id number] - TSH Result Comment: Non- GFR Calc Performed By: #### L 500.4050, L100.0500, L500.4100, L509.3000 ####[facility] [address] [place], [address] Globulin (S) [Mass/Vol] 3.6 g/dL Normal 2.2-4.2 [facility] Comment on above: Order Comment: Order Date: 12/07/23Order Info: 785-1 - CMPOrder Info: [id number] - LIPIDOrder Date: 12/12/23Order Info: 6-3 - TSH Performed By: #### L 500.4050, L100.0500, L500.4100, L509.3000 ####[facility] [address] [place], [address] Glucose [Mass/Vol] 97 mg/dL Normal 74-106 [facility] Comment on above: Order Comment: Order Date: 12/07/23Order Info: [id number] - CMPOrder Info: [id number] - LIPIDOrder Date: 12/12/23Order Info: 6-3 - TSH Performed By: #### L 500.4050, L100.0500, L500.4100, L509.3000 ####[facility] [address] [place], [address] Potassium [Moles/Vol] 4.3 mmol/L Normal 3.5-5.1 [facility] Comment on above: Order Comment: Order Date: 12/07/23Order Info: 785- - CMPOrder Info: [id number] - LIPIDOrder Date: 12/12/23Order Info: [id number] - TSH Performed By: #### L 500.4050, L100.0500, L500.4100, L509.3000 ####[facility] [address] [place], [address] Sodium [Moles/Vol] 142 mmol/L Normal 136-145 [facility] Comment on above: Order Comment: Order Date: 12/07/23Order Info: [id number] - CMPOrder Info: - LIPIDOrder Date: 12/12/23Order Info: 6-3 - TSH Performed By: #### L 500.4050, L100.0500, L500.4100, L509.3000 ####[facility] [address] [place], [address] T PROT 7.3 g/dL Normal 6.4-8.2 [facility] Comment on above: Order Comment: Order Date: 12/07/23Order Info: 07 - CMPOrder Info: [id number] - LIPIDOrder Date: 12/12/23Order Info: [id number] - TSH Performed By: #### L 500.4050, L100.0500, L500.4100, L509.3000 ####[facility] [address] [place], [address] Urea nitrogen [Mass/Vol] 19 mg/dL High 7-18 [facility] Comment on above: Order Comment: Order Date: 12/07/23Order Info: 07- - CMPOrder Info: [id number] - LIPIDOrder Date: 12/12/23Order Info: [id number] - TSH Performed By: #### L 500.4050, L100.0500, L500.4100, L509.3000 ####[facility] [address] [place], [address] Lipid Profileon 12-16-2023 Cholesterol [Mass/Vol] 158 mg/dL Normal 200 [facility] Comment on above: Order Comment: Order Date: 12/07/23Order Info: 86-1 - CMPOrder Info: [id number] - LIPIDOrder Date: 12/12/23Order Info: [id number] - TSH Result Comment: <200 mg/dL Desirable 200-240 mg/dL Borderline >240 mg/dL High Risk Performed By: #### L 500.4050, L100.0500, L500.4100, L509.3000 ####[facility] [address] [place], [address] Cholesterol in HDL [Mass/Vol] 37 mg/dL Low [facility] Comment on above: Order Comment: Order Date: 12/07/23Order Info: 785- - CMPOrder Info: [id number] - LIPIDOrder Date: 12/12/23Order Info: [id number] - TSH Result Comment: The drugs N-Acetylcysteine and Metamizole may falsely depress this assay. Reference Range HDL <40 mg/dL Low HDL Cholesterol HDL >or= 60 mg/dL High HDL Cholesterol Performed By: #### L 500.4050, L100.0500, L500.4100, L509.3000 ####[facility] [address] [place], [address] Cholesterol in LDL [Mass/Vol] 84 mg/dL Normal 0-130 [facility] Comment on above: Order Comment: Order Date: 12/07/23Order Info: [id number] - CMPOrder Info: [id number] - LIPIDOrder Date: 12/12/23Order Info: [id number] - TSH Performed By: #### L 500.4050, L100.0500, L500.4100, L509.3000 ####[facility] [place] [facility] [address] [place], [address] Cholesterol in VLDL [Mass/Vol] 37 mg/dL Normal 5-40 [facility] [place] [facility] Comment on above: Order Comment: Order Date: 12/07/23Order Info: [id number] - CMPOrder Info: [id number] - LIPIDOrder Date: 12/12/23Order Info: 6-3 - TSH Performed By: #### L 500.4050, L100.0500, L500.4100, L509.3000 ####[facility] [place] [facility] [address] [place], [address] Triglyceride [Mass/Vol] 184 mg/dL Normal [facility] Comment on above: Order Comment: Order Date: 12/07/23Order Info: [id number]- - CMPOrder Info: [id number] - LIPIDOrder Date: 12/12/23Order Info: 6-3 - TSH Result Comment: The drugs N-Acetylcysteine and Metamizole may falsely depress this assay. Serum Triglycerides Reference Interval Normal <150 mg/dL Borderline high 150 - 199 mg/dL High 200 - 499 mg/dL Very High > or = 500 mg/dL Performed By: #### L 500.4050, L100.0500, L500.4100, L509.3000 ####[facility] [place] [facility] [address] [place], [address] Thyroid Stim Hormone (TSH)on 12-16-2023 TSH 1.520 uIU/mL Normal 0.358-3.740 [facility] [place] [facility] Comment on above: Order Comment: Order Date: 12/07/23 Order Info: [id number] - CMP Order Info: [id number] - LIPID Order Date: 12/12/23 Order Info: 6-3 - TSH Performed By: #### L 501.9520, L3100.5310 #### [facility] [place] [facility] [address] [place], [address] Absolute lymphocyte countOrd ered By: Catalina Polk on 04-22-2023 Lymphocytes Auto (Unsp spec) [#/Vol] 1.72 10*3/uL 0.83-4.51 [facility] [place] [facility] Automated lymphocyte count a s percentage of total leukocytesOrdered By: Catalina Polk on 04-22-2023 Lymphocytes/100 WBC Auto (Unsp spec) 36.6 % 19-41 [facility] [place] [facility] Basophil percentageOrdered B y: Catalina Polk on 04-22-2023 Basophils/100 WBC (Bld) 0.4 % 0-1 [facility] Chloride [Moles/Vol] 112 mmol/L 98-107 [facility] Cholesterol [Mass/Vol] 162 mg/dL <200 [facility] Comment on above: <200 mg/dL Desirable 200-240 mg/dL Borderline >240 mg/dL High Risk Eosinophils/100 WBC (Bld) 3.6 % 0-5 [facility] [place] [facility] Glucose [Mass/Vol] 85 mg/dL 74-106 [facility] Hemoglobin (Bld) [Mass/Vol] 15.2 g/dL 13.0-16.5 [facility] [place] [facility] Monocytes/100 WBC (Bld) 15.7 % 0-10 [facility] Neutrophils (Bld) [#/Vol] 2.0 10*3/uL 2.0-7.7 [facility] [place] [facility] Neutrophils/100 WBC (Bld) 43.5 % 47-70 [facility] [place] [facility] Potassium [Moles/Vol] 4.1 mmol/L 3.5-5.1 [facility] Sodium [Moles/Vol] 143 mmol/L 136-145 [facility] Testosterone [Mass/Vol] 435.88 ng/dL [facility] [place] [facility] Comment on above: CENTRAL 90% REFERENC E RANGES MALE AGE <50 197.44 - 669.58 ng/dL MALE AGE > or = 50 187.72 - 684.19 ng/dL FEMALE AGE <50 8.38 - 35.01 ng/dL FEMALE AGE > or = 50 <7.00 - 35.92 ng/dL Effective as of 09/15/20 Triglyceride [Mass/Vol] 60 mg/dL <199 [facility] Comment on above: The drugs N-Acetylcy steine and Metamizole may falsely depress this assay.Serum Triglycerides Reference Interval Normal <150 mg/dL Borderline high 150 - 199 mg/dL High 200 - 499 mg/dL Very High > or = 500 mg/dL WBC (Bld) [#/Vol] 4.7 10*3/uL 4.4-11.0 [facility] Determination of erythrocyte mean corpuscular volume (MCV)Ordered By: Catalina Polk on 04-22-2023 MCV (RBC) [Entitic vol] 84.1 fL 80-94 [facility] Erythrocyte distribution wid th ratioOrdered By: Catalina Polk on 04-22-2023 Erythrocyte distribution width (RBC) [Ratio] 12.4 % 11.6-14.6 [facility] [place] [facility] Erythrocyte distribution wid th standard deviationOrdered By: Catalina Polk on 04-22-2023 Erythrocyte distribution width (RBC) [Entitic vol] 37.5 fL 35.1-43.9 [facility] [place] [facility] Hematocrit Auto (Bld) [Volum e fraction]Ordered By: Catalina Polk on 04-22-2023 Hematocrit (Bld) [Volume fraction] 46.6 % 40-54 [facility] [place] [facility] Immature granulocytes/100 WB C Auto (Bld)Ordered By: Catalina Polk on 04-22-2023 Immature granulocytes/100 WBC (Bld) 0.200 % 0.0-0.9 [facility] [place] [facility] Comment on above: IG% - Immature Granu locytes (promyelocytes, myelocytes and metamyelocytes) > 1% indicates that a LEFT SHIFT is Present. Laboratory - Chemistry and C hemistry - challengeOrdered By: Catalina Polk on 04-22-2023 Cholesterol in HDL [Mass/Vol] 46 mg/dL >40 [facility] [place] [facility] Comment on above: The drugs N-Acetylcy steine and Metamizole may falsely depress this assay. Reference Range HDL <40 mg/dL Low HDL Cholesterol HDL >or= 60 mg/dL High HDL Cholesterol Cholesterol in LDL [Mass/Vol] 104 mg/dL 0-130 [facility] [place] [facility] CO2 [Moles/Vol] 27.0 mmol/L 21.0-32.0 [facility] [place] [facility] Urea nitrogen/Creatinine [Mass ratio] 17.9 mg/mg 10-20 [facility] [place] [facility] Laboratory - Hematology and Cell countsOrdered By: Catalina Polk on 04-22-2023 MCH (RBC) [Entitic mass] 27.4 pg 27.0-32.0 [facility] [place] [facility] MCHC (RBC) [Mass/Vol] 32.6 g/dL 32-36 [facility] Nucleated RBC/100 WBC (Bld) [Ratio] 0 % 0-5 [facility] [place] [facility] Platelet mean volume (Bld) [Entitic vol] 10.9 fL 6.2-12.0 [facility] [place] [facility] Platelets (Bld) [#/Vol] 197 10*3/uL 150-450 [facility] [place] [facility] No Panel InformationOrdered By: Catalina Polk on 04-22-2023 Estimated GFR (MDRD) Amer 91 mL/min >60 [facility] [place] [facility] Comment on above: GFR Calc Estimated GFR (MDRD) Non-Af Amer 76 mL/min >60 [facility] [place] [facility] Comment on above: Non- GFR Calc Urine Microalbumin/Creatinine Ratio 8.7 mg/g CRE <30 [facility] [place] [facility] VLDL Cholesterol 12 mg/dL 5-40 [facility] [place] [facility] RBC Auto (Bld) [#/Vol]Ordere d By: Catalina Polk on 04-22-2023 RBC (Bld) [#/Vol] 5.54 10*6/uL 4.6-6.2 [facility] Serum or plasma calcium rosalio urement (mass/volume)Ordered By: Catalina Polk on 04-22-2023 Calcium [Mass/Vol] 9.5 mg/dL 8.5-10.1 [facility] Serum or plasma creatinine m easurement (mass/volume)Ordered By: Catalina Polk on 04-22-2023 Creatinine [Mass/Vol] 1.12 mg/dL 0.70-1.30 [facility] Comment on above: The validity of the calculated GFR & GFRAA in patients over 70 years has not been determined. Clinical correlation is essential. Serum or plasma urea nitroge n measurement (mass/volume)Ordered By: Catalina Polk on 04-22-2023 Urea nitrogen [Mass/Vol] 20 mg/dL 7-18 [facility] [place] [facility] Thin prep Papanicolaou smear with manual screeningOrdered By: Catalina Polk on 04-22-2023 Thin prep Papanicolaou smear with manual screening 4 5-15 [facility] [place] [facility] Thin prep Papanicolaou smear with manual screening 19.1 mg/L NO RANGE EST. [facility] [place] [facility] Urine creatinine measurement (mass/volume)Ordered By: Catalina Polk on 04-22-2023 Creatinine (U) [Mass/Vol] 220.00 mg/dL NO RANGE EST. [facility] [place] [facility] Basophil percentageOrdered B y: Kacy Valenzuela on 11-09-2022 Testosterone [Mass/Vol] 252 ng/dL 264-916 [facility] Comment on above: Adult male reference interval is based on a population ofhealthy nonobese males (BMI <30) between 19 and 39 yearsold. Pamela et.al. JCEM 2017,102;1500-3610. PMID:[id number]. Free testosterone percentage Ordered By: Kacy Valenzuela on 11-09-2022 Testosterone Free/Testosterone.total [Mass fraction] 2.66 % 1.50-4.20 [facility] [place] [facility] Comment on above: Performed at: [address] [id number] Director: Willian Ghotra PhD, Phone: [phone] at: [facility] [id number] Director: Kale Helm MD, Phone: [phone] Serum or plasma testosterone free measurement (mass/volume)Ordered By: Kacy Valenzuela on 11-09-2022 Testosterone Free [Mass/Vol] 6.70 ng/dL 5.00-21.00 [facility] [place] [facility] Absolute lymphocyte countOrd ered By: Catalina Polk on 07-29-2022 Lymphocytes Auto (Unsp spec) [#/Vol] 1.99 10*3/uL 0.83-4.51 [facility] [place] [facility] Basophil percentageOrdered B y: Catalina Polk on 07-29-2022 Basophils/100 WBC (Bld) 0.3 % 0-1 [facility] Cholesterol [Mass/Vol] 153 mg/dL <200 [facility] Comment on above: <200 mg/dL Desirable 200-240 mg/dL Borderline >240 mg/dL High Risk Eosinophils/100 WBC (Bld) 3.0 % 0-5 [facility] [place] [facility] Neutrophils (Bld) [#/Vol] 3.0 10*3/uL 2.0-7.7 [facility] [place] [facility] Neutrophils/100 WBC (Bld) 49.0 % 47-70 [facility] [place] [facility] Testosterone [Mass/Vol] 763.42 ng/dL [facility] [place] [facility] Comment on above: CENTRAL 90% REFERENC E RANGES MALE AGE <50 197.44 - 669.58 ng/dL MALE AGE > or = 50 187.72 - 684.19 ng/dL FEMALE AGE <50 8.38 - 35.01 ng/dL FEMALE AGE > or = 50 <7.00 - 35.92 ng/dL Effective as of 09/15/20 Triglyceride [Mass/Vol] 137 mg/dL <199 [facility] Comment on above: The drugs N-Acetylcy steine and Metamizole may falsely depress this assay.Serum Triglycerides Reference Interval Normal <150 mg/dL Borderline high 150 - 199 mg/dL High 200 - 499 mg/dL Very High > or = 500 mg/dL WBC (Bld) [#/Vol] 6.1 10*3/uL 4.4-11.0 [facility] Blood erythrocytes count (nu mber/volume)Ordered By: Catalina Polk on 07-29-2022 RBC (Bld) [#/Vol] 6.30 10*6/uL 4.6-6.2 [facility] Blood hemoglobin measurement (mass/volume)Ordered By: Catalina Polk on 07-29-2022 Hemoglobin (Bld) [Mass/Vol] 16.3 g/dL 13.0-16.5 [facility] [place] [facility] Blood lymphocytes/100 leukoc ytesOrdered By: Catalina Polk on 07-29-2022 Lymphocytes/100 WBC (Bld) 32.7 % 19-41 [facility] [place] [facility] Blood monocytes/100 leukocyt esOrdered By: Catalina Polk on 07-29-2022 Monocytes/100 WBC (Bld) 14.8 % 0-10 [facility] Blood platelet mean volumeOr dered By: Catalina Polk on 07-29-2022 Platelet mean volume (Bld) [Entitic vol] 11.0 fL 6.2-12.0 [facility] [place] [facility] Determination of erythrocyte mean corpuscular volume (MCV)Ordered By: Catalina Polk on 07-29-2022 MCV (RBC) [Entitic vol] 81.7 fL 80-94 [facility] Hematocrit Auto (Bld) [Volum e fraction]Ordered By: Catalina Polk on 07-29-2022 Hematocrit (Bld) [Volume fraction] 51.5 % 40-54 [facility] [place] [facility] Laboratory - Hematology and Cell countsOrdered By: Catalina Polk on 07-29-2022 Erythrocyte distribution width (RBC) [Entitic vol] 40.0 fL 35.1-43.9 [facility] [place] [facility] Erythrocyte distribution width (RBC) [Ratio] 13.4 % 11.6-14.6 [facility] [place] [facility] Immature granulocytes/100 WBC (Bld) 0.200 % 0.0-0.9 [facility] [place] [facility] Comment on above: IG% - Immature Granu locytes (promyelocytes, myelocytes and metamyelocytes) > 1% indicates that a LEFT SHIFT is Present. MCH (RBC) [Entitic mass] 25.9 pg 27.0-32.0 [facility] [place] [facility] Nucleated RBC/100 WBC (Bld) [Ratio] 0 % 0-5 [facility] [place] [facility] MCHC Auto (RBC) [Mass/Vol]Or dered By: Catalina Polk on 07-29-2022 MCHC (RBC) [Mass/Vol] 31.7 g/dL 32-36 [facility] No Panel InformationOrdered By: Catalina Polk on 07-29-2022 Prostate Specific Antigen Screen 0.42 ng/mL 0.00-4.00 [facility] [place] [facility] Comment on above: This test was perfor med using the TPSA assay method [facility] the[facility]. Values obtained with differentassay methods cannot be used interchangably.When changing PSA assays in the course of monitoring apatient, additional sequential testing should be carriedout to confirm baseline values. Platelets bldOrdered By: Catalina Polk on 07-29-2022 Platelets (Bld) [#/Vol] 198 10*3/uL 150-450 [facility] [place] [facility] Serum or plasma cholesterol in HDL measurement (mass/volume)Ordered By: Catalina Polk on 07-29-2022 Cholesterol in HDL [Mass/Vol] 41 mg/dL >40 [facility] [place] [facility] Comment on above: The drugs N-Acetylcy steine and Metamizole may falsely depress this assay. Reference Range HDL <40 mg/dL Low HDL Cholesterol HDL >or= 60 mg/dL High HDL Cholesterol Serum or plasma cholesterol in VLDL measurement (mass/volume)Ordered By: Catalina Polk on 07-29-2022 Cholesterol in VLDL [Mass/Vol] 27 mg/dL 5-40 [facility] [place] [facility] Serum or plasma low density lipoprotein (LDL) cholesterol measurement (mass/volume)Ordered By: Catalina Polk on 07-29-2022 Cholesterol in LDL [Mass/Vol] 85 mg/dL 0-130 [facility] [place] [facility] Absolute lymphocyte counton 06-09-2021 Lymphocytes Auto (Unsp spec) [#/Vol] 1.81 10*3/uL 0.83-4.51 [facility] [place] [facility] Work Phone: Basophil percentageon 2021 Basophils/100 WBC (Bld) 0.6 % 0-1 [facility] Work Phone: Cholesterol [Mass/Vol] 134 mg/dL <200 [facility] Work Phone: Comment on above: <200 mg/dL Desirable 200-240 mg/dL Borderline >240 mg/dL High Risk Eosinophils/100 WBC (Bld) 2.9 % 0-5 [facility] [place] [facility] Work Phone: Neutrophils (Bld) [#/Vol] 2.2 10*3/uL 2.0-7.7 [facility] [place] [facility] Work Phone: Neutrophils/100 WBC (Bld) 43.3 % 47-70 [facility] [place] [facility] Work Phone: Testosterone [Mass/Vol] 170.05 ng/dL [facility] [place] [facility] Work Phone: Comment on above: CENTRAL 90% REFERENC E RANGES MALE AGE <50 197.44 - 669.58 ng/dL MALE AGE > or = 50 187.72 - 684.19 ng/dL FEMALE AGE <50 8.38 - 35.01 ng/dL FEMALE AGE > or = 50 <7.00 - 35.92 ng/dL Effective as of 09/15/20 Triglyceride [Mass/Vol] 82 mg/dL [facility] Work Phone: Comment on above: The drugs N-Acetylcy steine and Metamizole may falsely depress this assay.Serum Triglycerides Reference Interval Normal <150 mg/dL Borderline high 150 - 199 mg/dL High 200 - 499 mg/dL Very High > or = 500 mg/dL WBC (Bld) [#/Vol] 5.2 10*3/uL 4.4-11.0 [facility] Work Phone: Blood erythrocytes count (nu mber/volume)on 06-09-2021 RBC (Bld) [#/Vol] 5.73 10*6/uL 4.6-6.2 [facility] Work Phone: Blood hemoglobin measurement (mass/volume)on 06-09-2021 Hemoglobin (Bld) [Mass/Vol] 15.8 g/dL 13.0-16.5 [facility] [place] [facility] Work Phone: [phone] Blood lymphocytes/100 leukoc yteson 06-09-2021 Lymphocytes/100 WBC (Bld) 35.0 % 19-41 [facility] [place] [facility] Work Phone: [phone] Blood monocytes/100 leukocyt eson 06-09-2021 Monocytes/100 WBC (Bld) 18.2 % 0-10 [facility] Work Phone: Blood platelet mean volumeon 06-09-2021 Platelet mean volume (Bld) [Entitic vol] 10.6 fL 6.2-12.0 [facility] [place] [facility] Work Phone: Determination of erythrocyte mean corpuscular volume (MCV)on 06-09-2021 MCV (RBC) [Entitic vol] 83.1 fL 80-94 [facility] Work Phone: [phone] Hematocrit Auto (Bld) [Volum e fraction]on 06-09-2021 Hematocrit (Bld) [Volume fraction] 47.6 % 40-54 [facility] [place] [facility] Work Phone: Laboratory - Hematology and Cell countson 06-09-2021 Erythrocyte distribution width (RBC) [Entitic vol] 37.5 fL 35.1-43.9 [facility] [place] [facility] Work Phone: [phone] Erythrocyte distribution width (RBC) [Ratio] 12.4 % 11.6-14.6 [facility] [place] [facility] Work Phone: Immature granulocytes/100 WBC (Bld) 0.000 % 0.0-0.9 [facility] [place] [facility] Work Phone: [phone] Comment on above: IG% - Immature Granu locytes (promyelocytes, myelocytes and metamyelocytes) > 1% indicates that a LEFT SHIFT is Present. MCH (RBC) [Entitic mass] 27.6 pg 27.0-32.0 [facility] [place] [facility] Work Phone: [phone] Nucleated RBC/100 WBC (Bld) [Ratio] 0 % 0-5 [facility] [place] [facility] Work Phone: [phone] MCHC Auto (RBC) [Mass/Vol]on 06-09-2021 MCHC (RBC) [Mass/Vol] 33.2 g/dL 32-36 [facility] Work Phone: [phone] Platelets bldon 06-09-2021 Platelets (Bld) [#/Vol] 186 10*3/uL 150-450 [facility] [place] [facility] Work Phone: [phone] Serum or plasma cholesterol in HDL measurement (mass/volume)on 06-09-2021 Cholesterol in HDL [Mass/Vol] 34 mg/dL [facility] [place] [facility] Work Phone: [phone] Comment on above: The drugs N-Acetylcy steine and Metamizole may falsely depress this assay. Reference Range HDL <40 mg/dL Low HDL Cholesterol HDL >or= 60 mg/dL High HDL Cholesterol Serum or plasma cholesterol in VLDL measurement (mass/volume)on 06-09-2021 Cholesterol in VLDL [Mass/Vol] 16 mg/dL 5-40 [facility] [place] [facility] Work Phone: [phone] Serum or plasma low density lipoprotein (LDL) cholesterol measurement (mass/volume)on 06-09-2021 Cholesterol in LDL [Mass/Vol] 84 mg/dL 0-130 [facility] [place] [facility] Work Phone: [phone] Whole blood hemoglobin A1c/t otal hemoglobin ratio (mass fraction)on 06-09-2021 HbA1c (Bld) [Mass fraction] 5.1 % 3.8-5.6 [facility] [place] [facility] Work Phone: [phone] Comment on above: Normal < 5.7 % Predi abetic 5.7 - 6.4 % Diabetic >or= 6.5 % Please note range changes. .Auto Diffon 04-16-2021 Basophil, Absolute 0.00 10 3/mcL Normal 0.00-0.19 [facility] ([place]) Comment on above: Performed By: #### C BC, ADIFF, ANEU, BMP, TROPHS, GFR #### [address] [address] Basophils/100 WBC (Bld) 0.5 % Normal 0.0-2.5 A On license of [facility] ([place]) Comment on above: Performed By: #### C BC, ADIFF, ANEU, BMP, TROPHS, GFR #### [address] [address] Eosinophil, Absolute 0.10 10 3/mcL Normal 0.00-0.40 A On license of [facility] ([place]) Comment on above: Performed By: #### C BC, ADIFF, ANEU, BMP, TROPHS, GFR #### [address] [address] Eosinophils/100 WBC (Bld) 2.1 % Normal 0.0-7.0 [facility] ([place]) Comment on above: Performed By: #### C BC, ADIFF, ANEU, BMP, TROPHS, GFR #### [address] [address] Lymphocyte, Absolute 1.90 10 3/mcL Normal 0.77-3.85 A On license of [facility] ([place]) Comment on above: Performed By: #### C BC, ADIFF, ANEU, BMP, TROPHS, GFR #### [address] [address] Lymphocytes/100 WBC (Bld) 32.8 % Normal 10.0-50.0 [facility] ([place]) Comment on above: Performed By: #### C BC, ADIFF, ANEU, BMP, TROPHS, GFR #### [address] [address] Monocyte, Absolute 0.80 10 3/mcL Normal 0.15-1.00 [facility] ([place]) Comment on above: Performed By: #### C BC, ADIFF, ANEU, BMP, TROPHS, GFR #### [address] [address] Monocytes/100 WBC (Bld) 13.4 % High 1.7-13.0 A On license of [facility] ([place]) Comment on above: Performed By: #### C BC, ADIFF, ANEU, BMP, TROPHS, GFR #### [address] [address] Neutrophils/100 WBC (Bld) 51.2 % Normal 37.0-80.0 [facility] ([place]) Comment on above: Performed By: #### C BC, ADIFF, ANEU, BMP, TROPHS, GFR #### [address] [address] .GFRon 04-16-2021 GFR 100 ml/min/1.73sqm Normal [facility] ([place]) Comment on above: Result Comment: GFR Population [...] BC, ADIFF, ANEU, BMP, TROPHS, GFR #### [address] [address] GFR Non- 83 ml/min/1.73sqm Normal [facility] ([place]) Comment on above: Result Comment: GFR Population [...] BC, ADIFF, ANEU, BMP, TROPHS, GFR #### [address] [address] .NEUABSon 04-16-2021 Neutrophil, Absolute 3.00 10 3/mcL Normal 2.85-6.16 A On license of [facility] ([place]) Comment on above: Performed By: #### C BC, ADIFF, ANEU, BMP, TROPHS, GFR #### [address] [address] BMPon 04-16-2021 BUN/Creatinine Ratio 15 ratio Normal 7-27 [facility] ([place]) Comment on above: Performed By: #### C BC, ADIFF, ANEU, BMP, TROPHS, GFR #### [address] [address] Calcium [Mass/Vol] 8.6 mg/dL Normal 8.4-10.2 [facility] ([place]) Comment on above: Performed By: #### C BC, ADIFF, ANEU, BMP, TROPHS, GFR #### [address] [address] Chloride [Moles/Vol] 105 mmol/L Normal 98-107 [facility] ([place]) Comment on above: Performed By: #### C BC, ADIFF, ANEU, BMP, TROPHS, GFR #### [address] [address] CO2 [Moles/Vol] 25 mmol/L Normal 22-29 [facility] ([place]) Comment on above: Performed By: #### C BC, ADIFF, ANEU, BMP, TROPHS, GFR #### [address] [address] Creatinine [Mass/Vol] 0.99 mg/dL Normal 0.70-1.30 [facility] ([place]) Comment on above: Performed By: #### C BC, ADIFF, ANEU, BMP, TROPHS, GFR #### [address] [address] Electrolyte Balance 11.0 mEq/L Normal 4.0-15.0 [facility] ([place]) Comment on above: Performed By: #### C BC, ADIFF, ANEU, BMP, TROPHS, GFR #### [address] [address] Glucose [Mass/Vol] 109 mg/dL High 70-105 [facility] ([place]) Comment on above: Performed By: #### C BC, ADIFF, ANEU, BMP, TROPHS, GFR #### [address] [address] Potassium [Moles/Vol] 4.0 mmol/L Normal 3.5-5.1 [facility] ([place]) Comment on above: Performed By: #### C BC, ADIFF, ANEU, BMP, TROPHS, GFR #### [address] [address] Sodium [Moles/Vol] 141 mmol/L Normal 136-145 [facility] ([place]) Comment on above: Performed By: #### C BC, ADIFF, ANEU, BMP, TROPHS, GFR #### [address] [address] Urea nitrogen [Mass/Vol] 15 mg/dL Normal 7-18 [facility] ([place]) Comment on above: Performed By: #### C BC, ADIFF, ANEU, BMP, TROPHS, GFR #### [address] [address] CBCon 04-16-2021 Erythrocyte distribution width (RBC) [Ratio] 13.1 % Normal 11.5-14.5 [facility] ([place]) Comment on above: Performed By: #### C BC, ADIFF, ANEU, BMP, TROPHS, GFR #### [address] [address] Hematocrit (Bld) [Volume fraction] 48.2 % Normal 42.0-52.0 [facility] ([place]) Comment on above: Performed By: #### C BC, ADIFF, ANEU, BMP, TROPHS, GFR #### [address] [address] Hgb 16.3 G/dL Normal 14.0-18.0 [facility] ([place] Comment on above: Performed By: #### C BC, ADIFF, ANEU, BMP, TROPHS, GFR #### [place] [id number] MCH (RBC) [Entitic mass] 28.0 pg Normal 27.0-31.2 [facility] ([place]) Comment on above: Performed By: #### C BC, ADIFF, ANEU, BMP, TROPHS, GFR #### [place] [id number] MCHC 33.8 G/dL Normal 31.8-35.4 [facility] ([place] Comment on above: Performed By: #### C BC, ADIFF, ANEU, BMP, TROPHS, GFR #### [place] [id number] MCV (RBC) [Entitic vol] 82.8 fL Normal 80.0-94.0 A On license of [facility] ([place]) Comment on above: Performed By: #### C BC, ADIFF, ANEU, BMP, TROPHS, GFR #### [place] [id number] Platelet 200 10 3/mcL Normal 130-400 [facility] ([place]) Comment on above: Performed By: #### C BC, ADIFF, ANEU, BMP, TROPHS, GFR #### [place] [id number] Platelet mean volume (Bld) [Entitic vol] 8.7 fL Normal 7.4-10.4 [facility] ([place]) Comment on above: Performed By: #### C BC, ADIFF, ANEU, BMP, TROPHS, GFR #### [address] [place] [id number] [place], [place] [address] RBC 5.81 10 6/mcL Normal 4.04-6.13 [facility] ([place]) Comment on above: Performed By: #### C BC, ADIFF, ANEU, BMP, TROPHS, GFR #### [address] [place], [place] [address] WBC 5.90 10 3/mcL Normal 4.60-10.80 [facility] ([place]) Comment on above: Performed By: #### C BC, ADIFF, ANEU, BMP, TROPHS, GFR #### [address] [place] [id number] [place], [place] [address] LABORATORYOrdered By: Chichi Garner on 04-16-2021 Troponin [...] I High Sensitivity 7.8 ng/L Normal 0.0-76.2 [facility] ([place]) Comment on above: Performed By: #### T ROPHS #### [address] [address] Troponin I High Sensitivity 7.1 ng/L Normal 0.0-76.2 [facility] ([place]) Comment on above: Performed By: #### C BC, ADIFF, ANEU, BMP, TROPHS, GFR #### [address] [address] XR CHEST 2 VIEWSon 2 XR CHEST [...] 04/16/2021 3:00:09 PM Ordering Provider: LUI Corona [facility] ([place]) Vital Signs Date Time Vital Sign Value Performing Clinician Jarrett aggarwal 07-29-2024 01:59-0400 Body temperature 98.5 [degF] Rajiv Hopkins MD Work Phone: [facility] 07-29-2024 01:59-0400 Diastolic blood pressure 92 mm[Hg] Rajiv Hopkins MD Work Phone: [facility] 07-29-2024 01:59-0400 Heart rate 66 /min Rajiv Hopkins MD Work Phone: [facility] 07-29-2024 01:59-0400 Respiratory rate 19 /min Rajiv Hopkins MD Work Phone: [facility] 07-29-2024 01:59-0400 SaO2% (BldA) [Mass fraction] 99 % Rajiv Hopkins MD Work Phone: [facility] 07-29-2024 01:59-0400 Systolic blood pressure 141 mm[Hg] Rajiv Hopkins MD Work Phone: [facility] 07-28-2024 23:36-0400 Body height 180.34 cm Rajiv Hopkins MD Work Phone: [facility] 07-28-2024 23:36-0400 Body mass index (BMI) [Ratio] 36.6 kg/m2 Rajiv Hopkins MD Work Phone: [facility] 07-28-2024 23:36-0400 Body weight 119.2 kg Rajiv Hopkins MD Work Phone: [facility] 04-20-2024 15:05-0500 Body temperature 98.1 [degF] Gregg Ibarra MD Work Phone: [facility] 04-20-2024 15:05-0500 Body weight 123 kg Gregg Ibarra MD Work Phone: [facility] 04-20-2024 15:05-0500 Diastolic blood pressure 84 mm[Hg] Gregg Ibarra MD Work Phone: [facility] 04-20-2024 15:05-0500 Heart rate 61 /min Gregg Ibarra MD Work Phone: [facility] 04-20-2024 15:05-0500 Respiratory rate 16 /min Gregg Ibarra MD Work Phone: [facility] 04-20-2024 15:05-0500 SaO2% (BldA) [Mass fraction] 99 % Gregg Ibarra MD Work Phone: [facility] 04-20-2024 15:05-0500 Systolic blood pressure 132 mm[Hg] Gregg Ibarra MD Work Phone: [facility] 04-19-2024 17:07-0500 Body temperature 98.2 [degF] Rajiv Hopkins MD Work Phone: [facility] 04-19-2024 17:07-0500 Diastolic blood pressure 60 mm[Hg] Rajiv Hopkins MD Work Phone: [facility] 04-19-2024 17:07-0500 Heart rate 58 /min Rajiv Hopkins MD Work Phone: [facility] 04-19-2024 17:07-0500 Respiratory rate 15 /min Rajiv Hopkins MD Work Phone: [facility] 04-19-2024 17:07-0500 SaO2% (BldA) [Mass fraction] 96 % Rajiv Hopkins MD Work Phone: [facility] 04-19-2024 17:07-0500 Systolic blood pressure 122 mm[Hg] Rajiv Hopkins MD Work Phone: [facility] 07-03-2023 09:15-0400 Body temperature 97.1 [degF] Dr. Catalina Polk Work Phone: [facility] 07-03-2023 09:15-0400 Diastolic blood pressure 49 mm[Hg] Dr. Catalina Polk Work Phone: [facility] 07-03-2023 09:15-0400 Heart rate 53 /min Dr. Catalina Polk Work Phone: [facility] 07-03-2023 09:15-0400 Respiratory rate 16 /min Dr. Catalina Polk Work Phone: [facility] 07-03-2023 09:15-0400 SaO2% (BldA) [Mass fraction] 94 % Dr. Catalina Polk Work Phone: [facility] 07-03-2023 09:15-0400 Systolic blood pressure 102 mm[Hg] Dr. Catalina Polk Work Phone: 8(064)069-728604 [address] 07-03-2023 07:41-0400 Body height 180.[address] Catalina Polk Work Phone: 6(866)099-103164 [place] [address] 07-03-2023 07:41-0400 Body mass index (BMI) [Ratio] 39.9 kg/m2 Dr. Catalina Polk Work Phone: 2(110)318-441264 [place] [address] 07-03-2023 07:41-0400 Body weight [address] Catalina Polk Work Phone: 5(222)435-197004 [address] 05-19-2023 11:14-0400 Body mass index (BMI) [Ratio] 38.5 kg/m2 Dr. Catalina Polk Work Phone: 8(595)026-929004 [address] 05-19-2023 11:14-0400 Body weight 125.[address] Catalina Polk Work Phone: 1(280)060-766358 [place] [address] 01-23-2023 12:36-0500 Body height 179.[address] Catalina Polk Work Phone: 2(149)132-269358 [place] [address] 01-23-2023 12:36-0500 Body mass index (BMI) [Ratio] 39.3 kg/m2 Dr. Catalina Polk Work Phone: 8(311)623-541758 [place] [address] 01-23-2023 12:36-0500 Body temperature 98.1 [degF] Dr. Catalina Polk Work Phone: 2(013)663-487658 [place] [address] 01-23-2023 12:36-0500 Body weight 126.[address] Catalina Polk Work Phone: 1(190)141-825004 [address] 01-23-2023 12:36-0500 Diastolic blood pressure 84 mm[Hg] Dr. Catalina Polk Work Phone: [facility] 01-23-2023 12:36-0500 Heart rate 48 /min Dr. Catalina Polk Work Phone: 4(970)800-520004 [address] 01-23-2023 12:36-0500 SaO2% (BldA) [Mass fraction] 99 % Dr. Catalina Polk Work Phone: 1(212)294-701358 [place] [address] 01-23-2023 12:36-0500 Systolic blood pressure 130 mm[Hg] Dr. Catalina Polk Work Phone: 7(301)977-579664 [place] [address] 08-15-2022 07:58-0400 Body height 179.[address] Catalina Polk Work Phone: 4(573)474-743204 [address] 08-15-2022 07:58-0400 Body mass index (BMI) [Ratio] 40.3 kg/m2 Dr. Catalina Polk Work Phone: 6(164)046-495904 [address] 08-15-2022 07:58-0400 Body temperature 97.6 [degF] Dr. Catalina Polk Work Phone: 4(715)583-129204 [address] 08-15-2022 07:58-0400 Body weight 129.[address] Catalina Polk Work Phone: 9(779)422-769804 [address] 08-15-2022 07:58-0400 Diastolic blood pressure 83 mm[Hg] Dr. Catalina Polk Work Phone: [facility] 08-15-2022 07:58-0400 Heart rate 93 /min Dr. Catalina Polk Work Phone: 4(805)041-984504 [address] 08-15-2022 07:58-0400 Respiratory rate 18 /min Dr. Catalina Polk Work Phone: [facility] 08-15-2022 07:58-0400 SaO2% (BldA) [Mass fraction] 95 % Dr. Catalina Polk Work Phone: 7(387)482-409158 [place] [address] 08-15-2022 07:58-0400 Systolic blood pressure 146 mm[Hg] Dr. Catalina Polk Work Phone: [facility] 04-16-2021 17:15-0500 Diastolic blood pressure 87 mm[Hg] DR LUI MAYES MD [facility] 04-16-2021 17:15-0500 Heart rate 62 /min DR LUI MAYES MD [facility] 04-16-2021 17:15-0500 Reason For Taking VItal Signs DR LUI MAYES MD [facility] 04-16-2021 17:15-0500 Respiratory rate 20 /min DR LUI MAYES MD [facility] 04-16-2021 17:15-0500 Systolic blood pressure 142 mm[Hg] DR LUI MAYES MD [facility] 04-16-2021 15:50-0500 Diastolic blood pressure 83 mm[Hg] DR LUI MAYES MD [facility] 04-16-2021 15:50-0500 Heart rate 54 /min DR LUI MAYES MD [facility] 04-16-2021 15:50-0500 Reason For Taking VItal Signs DR LUI MAYES MD [facility] 04-16-2021 15:50-0500 Respiratory rate 20 /min DR LUI MAYES MD [facility] 04-16-2021 15:50-0500 Systolic blood pressure 128 mm[Hg] DR LUI MAYES MD [facility] 04-16-2021 14:59-0500 Diastolic blood pressure 80 mm[Hg] DR LUI MAYES MD [facility] 04-16-2021 14:59-0500 Heart rate 74 /min DR LUI MAYES MD [facility] 04-16-2021 14:59-0500 Mean blood pressure 98 mm[Hg] DR LUI MAYES MD [facility] 04-16-2021 14:59-0500 Respiratory rate 18 /min DR LUI MAYES MD [facility] 04-16-2021 14:59-0500 Systolic blood pressure 135 mm[Hg] DR LUI MAYES MD [facility] 04-16-2021 14:52-0500 Mean blood pressure 100 mm[Hg] DR LUI MAYES MD [facility] 04-16-2021 14:52-0500 Reason For Taking VItal Signs DR LUI MAYES MD [facility] 04-16-2021 14:10-0500 Body temperature 98.6 [degF] DR LUI MAYES MD [facility] 04-16-2021 14:10-0500 Body weight [address] LUI MAYES MD [facility] 04-16-2021 14:10-0500 Heart rate 62 /min DR LUI MAYES MD [facility] Encounters Encounter Date Encounter Type Care Provider Facility Start: 11-15-2024 ambulatory Ebenezer Yadav [employer] Facil ity:[facility] Start: 11-14-2024 ambulatory [facility] Facility:[facility] Start: 07-28-2024 End: 07-29-2024 Emergency department patient visit Rajiv Hopkins MD Work Phone: -Emergency Department Work Phone: Start: 06-14-2024 End: 06-14-2024 ambulatory Rajiv Hopkins MD Work Phone: [facility] Work Phone: Start: 06-14-2024 End: 06-14-[address] Rajiv Hopkins [facility] -[facility] Start: 06-14-2024 End: 06-14-2024 ambulatory Rajiv Hopkins Facility:[facility] Start: 04-20-2024 End: 04-20-2024 ambulatory CATALINA POLK Facility:[facility] Start: 04-20-2024 End: 04-20-2024 Office outpatient new 30 minutes Gregg Ibarra MD Work Phone: [facility] Comment on above: Herpes zoster withou t complications (Primary Dx) Start: 04-19-2024 End: 04-19-2024 ambulatory Rajiv Hopkins MD Work Phone: [facility] Work Phone: Start: 04-19-2024 End: 04-19-2024 Patient encounter procedure Torsten Soria [place] -[facility] Work Phone: Start: 04-19-2024 End: 04-19-2024 ambulatory Rajiv Hopkins Facility:[facility] Start: 01-05-2024 End: 01-05-[address] Rajiv Hopkins MD -Laboratory, [facility] Start: 01-05-2024 End: 01-05-2024 [facility] Start: 12-16-2023 End: 12-16-2023 ambulatory [facility] Facility:[facility] Start: 07-03-2023 Non-patient / Non-visit Dr. Edda Polk Work Phone: [facility] Start: 07-03-2023 End: 07-03-2023 Admission to same day surgery center Dr. Catalina Polk Work Phone: [facility]Endoscopy Work Phone: Start: 07-03-2023 End: 07-03-[address] Catalina Polk Work Phone: [facility] Work Phone: Start: 05-19-2023 Non-patient / Non-visit Dr. Edda Polk Work Phone: [facility] Work Phone: Start: 04-22-2023 End: 04-22-[address] Catalina Polk Work Phone: [facility] Work Phone: Start: 04-22-2023 End: 04-22-[address] Catalina Polk Work Phone: [facility]Laboratory Work Phone: Start: 01-23-2023 End: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
--- OUTSIDE RECORDS SUMMARY | 2024-11-15 09:33 | XMS RPT_ITS | CCD ---
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 07:41 04/19/24 17:07 Height 5 ft 11 in BP 122/60 H Blood Pressure Location Lt brachial Position Sitting Respiration 15 Pulse 58 L Pulse Source NIBP Temp 98.2 F Temp Source Oral Pulse Oximetry (%) 96 Oxygen Delivery Method room air Intake Visit Reasons: ITCHY EAR, EAR PAIN Chief Complaint: LEFT EAR PAIN, LEFT EYE ITCH Integrated Campaign Manager Required: No Is patient in pain?: Yes Allergies No Known Allergies Allergy (Verified 04/19/24 17:08) Have you fallen in the past year?: No Nurse's Note: LEFT EAR PAIN, DENIES DRAINAGE OR BLOOD. LEFT EYE ITCH, DENIES TEARING/CRUSTING/[facility] Medical History (Updated 04/19/24 @ 17:18 [...] children current occupational status: employed current occupation: [employer] Smoking Status: Never smoker alcohol intake: never [...] General: cooperative and healthy appearing [facility] Head: normocephalic and atraumatic Ears: hearing grossly [...] Roper Signature: Date (if applicable) CC: Normal [facility] Testosterone, Total / Freeon 01-13-2024 TESTOSTER,FREE 20.97 ng/dL Normal 5.00-21.00 [facility] Comment on above: Order Comment: Order Date: 12/21/23 Order Info: 0024-1 - TESTF N Performed By: #### L 3100.5310 #### [facility] [address] [place], [place], [address] TESTOSTER,TOTAL 497 ng/dL Normal 264-916 [facility] Comment on above: Order Comment: Order Date: 12/21/23 Order Info: 0024-1 - TESTF N Result Comment: Adul t male reference interval is based on a population of healthy nonobese males (BMI <30) between 19 and 39 years old. alfredito Santiago.al. JCEM 2017,102;3413-7704. PMID: [id number]. Performed By: #### L 3100.5310 #### [facility] [address] [place], [place], [address] TESTOSTERONE,%F 4.22 High 1.50-4.20 [facility] Comment on above: Order Comment: Order Date: 12/21/23 Order Info: 0024-1 - TESTF N Result Comment: Perf ormed at: [place] [id number] [place], [place] [id number] Paper Cutting Machine Operator: Willian Ghotra PhD, Phone: [phone] Performed at: [address] [id number] Paper Cutting Machine Operator: Kale Helm MD, Phone: [phone] Performed By: #### L 3100.5310 #### [facility] [address] [place], [place], [address] Testosterone Free [Mass/Vol] Ordered By: Rajiv Hopkins on 01-05-2024 Free Testosterone 20.97 ng/dL 5.00-21.00 [facility] Testosterone Free/Testostero ne.total [Mass fraction]Ordered By: Rajiv Hopkins on 01-05-2024 Percent Free Testosterone 4.22 % High 1.50-4.20 [facility] Comment on above: Performed at: [facility] [place] [id number] Director: Willian Ghotra PhD, Phone: [phone] at: [address] [id number] Director: Kale Helm MD, Phone: [phone] Testosterone, totalOrdered B y: Rajiv Hopkins on 01-05-2024 Testosterone [Mass/Vol] 497 ng/dL 264-916 [facility] Comment on above: Adult male reference interval is based on a population ofhealthy nonobese males (BMI <30) between 19 and 39 yearsold. alfredito Santiago.al. JCEM 2017,102;1533-1040. PMID:[id number]. Testosterone, Total / Freeon 12-22-2023 TESTOSTER,FREE 2.63 ng/dL Abnormal 5.00-21.00 [facility] Comment on above: Order Comment: Order Date: 12/12/23 Order Info: 0024-1 - TESTF N Performed By: #### L 501.9520, L3100.5310 #### [facility] [address] [place], [address] TESTOSTER,TOTAL 90 ng/dL Low 264-916 [facility] Comment on above: Order Comment: Order Date: 12/12/23 Order Info: 0024-1 - TESTF N Result Comment: Adul t male reference interval is based on a population of healthy nonobese males (BMI <30) between 19 and 39 years old. Pamela, et.al. JCEM 2017,102;2417-1079. PMID: [id number]. Performed By: #### L 501.9520, L3100.5310 #### [facility] [address] [place], [address] TESTOSTERONE,%F 2.92 Normal 1.50-4.20 [facility] Comment on above: Order Comment: Order Date: 12/12/23 Order Info: 0024-1 - TESTF N Result Comment: Perf ormed at: [facility] [address] [id number] Paper Cutting Machine Operator: Willian Ghotra PhD, Phone: [phone] Performed at: - [facility] [id number] Paper Cutting Machine Operator: Kale Helm MD, Phone: [phone] Performed By: #### L 501.9520, L3699.5310 #### [facility] [address] [place], [address] Testosterone, Serum Totalon 12-18-2023 Testosterone [Mass/Vol] 85.17 ng/dL Normal [facility] Comment on above: Order Comment: Order [...] By: #### L 500.4050, L100.0500, L500.4100, L509.3000 ####[facility] [address] [place], [address] CBC-Complete Blood Cnt No Di ffon 12-16-2023 Erythrocyte distribution width (RBC) [Ratio] 13.7 % Normal 11.6-14.6 [facility] Comment on above: Order Comment: Order Date: 12/07/23Order Info: [id number] - CBC Performed By: #### L 500.4050, L100.0500, L500.4100, L509.3000 ####[facility] [address] [place], [address] Hematocrit (Bld) [Volume fraction] 46.7 % Normal 40-54 [facility] Comment on above: Order Comment: Order Date: 12/07/23Order Info: [id number] - CBC Performed By: #### L 500.4050, L100.0500, L500.4100, L509.3000 ####[facility] [address] [place], [address] Hemoglobin (Bld) [Mass/Vol] 14.6 g/dL Normal 13.0-16.5 [facility] Comment on above: Order Comment: Order Date: 12/07/23Order Info: [id number] - CBC Performed By: #### L 500.4050, L100.0500, L500.4100, L509.3000 ####[facility] [address] [place], [address] MCH (RBC) [Entitic mass] 24.7 pg Low 27.0-32.0 [facility] Comment on above: Order Comment: Order Date: 12/07/23Order Info: [id number] - CBC Performed By: #### L 500.4050, L100.0500, L500.4100, L509.3000 ####[facility] [address] [place], [address] MCHC (RBC) [Mass/Vol] 31.3 g/dL Low 32-36 [facility] Comment on above: Order Comment: Order Date: 12/07/23Order Info: [id number] - CBC Performed By: #### L 500.4050, L100.0500, L500.4100, L509.3000 ####[facility] [address] [place], [address] MCV (RBC) [Entitic vol] 79.2 fL Low 80-94 [facility] Comment on above: Order Comment: Order Date: 12/07/23Order Info: [id number] - CBC Performed By: #### L 500.4050, L100.0500, L500.4100, L509.3000 ####[facility] [address] [place], [address] Platelet mean volume (Bld) [Entitic vol] 10.7 fL Normal 6.2-12.0 [facility] Comment on above: Order Comment: Order Date: 12/07/23Order Info: [id number] - CBC Performed By: #### L 500.4050, L100.0500, L500.4100, L509.3000 ####[facility] [address] [place], [address] Platelets (Bld) [#/Vol] 192 10*3/uL Normal 150-450 [facility] Comment on above: Order Comment: Order Date: 12/07/23Order Info: [id number] - CBC Performed By: #### L 500.4050, L100.0500, L500.4100, L509.3000 ####[facility] [address] [place], [address] RBC (Bld) [#/Vol] 5.90 10*6/uL Normal 4.6-6.2 [facility] Comment on above: Order Comment: Order Date: 12/07/23Order Info: [id number] - CBC Performed By: #### L 500.4050, L100.0500, L500.4100, L509.3000 ####[facility] [address] [place], [address] RDW SD 39.6 fl Normal 35.1-43.9 [facility] Comment on above: Order Comment: Order Date: 12/07/23Order Info: [id number] - CBC Performed By: #### L 500.4050, L100.0500, L500.4100, L509.3000 ####[facility] [address] [place], [address] WBC (Bld) [#/Vol] 5.7 10*3/uL Normal 4.4-11.0 [facility] Comment on above: Order Comment: Order Date: 12/07/23Order Info: [id number] - CBC Performed By: #### L 500.4050, L100.0500, L500.4100, L509.3000 ####[facility] [address] [place], [address] Comprehensive Metabolic Prof laon 12-16-2023 Albumin [Mass/Vol] 3.7 g/dL Normal 3.2-5.0 [facility] Comment on above: Order Comment: Order Date: 12/07/23Order Info: [id number] - CMPOrder Info: [id number] - LIPIDOrder Date: 12/12/23Order Info: [id number] - TSH Performed By: #### L 500.4050, L100.0500, L500.4100, L509.3000 ####[facility] [address] [place], [address] Albumin/Globulin [Mass ratio] 1.0 {ratio} Normal 0.9-2.4 [facility] Comment on above: Order Comment: Order Date: 12/07/23Order Info: [id number] - CMPOrder Info: [id number] - LIPIDOrder Date: 12/12/23Order Info: 6-3 - TSH Performed By: #### L 500.4050, L100.0500, L500.4100, L509.3000 ####[facility] [address] [place], [address] ALK P 81 U/L Normal 45-117 [facility] Comment on above: Order Comment: Order Date: 12/07/23Order Info: 785-1 - CMPOrder Info: [id number] - LIPIDOrder Date: 12/12/23Order Info: 6-3 - TSH Performed By: #### L 500.4050, L100.0500, L500.4100, L509.3000 ####[facility] [address] [place], [address] ALT [Catalytic activity/Vol] 59 U/L Normal 16-61 [facility] Comment on above: Order Comment: Order Date: 12/07/23Order Info: 785-1 - CMPOrder Info: [id number] - LIPIDOrder Date: 12/12/23Order Info: 6-3 - TSH Performed By: #### L 500.4050, L100.0500, L500.4100, L509.3000 ####[facility] [address] [place], [address] AST [Catalytic activity/Vol] 28 U/L Normal 15-37 [facility] Comment on above: Order Comment: Order Date: 12/07/23Order Info: 785-1 - CMPOrder Info: [id number] - LIPIDOrder Date: 12/12/23Order Info: 6-3 - TSH Performed By: #### L 500.4050, L100.0500, L500.4100, L509.3000 ####[facility] [address] [place], [address] Bilirubin [Mass/Vol] 0.50 mg/dL Normal 0.20-1.00 [facility] Comment on above: Order Comment: Order Date: 12/07/23Order Info: 785- - CMPOrder Info: - LIPIDOrder Date: 12/12/23Order Info: [id number] - TSH Result Comment: For patients on eltrombopag therapy, use of Dimension [place] TBIL is not recommended. Performed By: #### L 500.4050, L100.0500, L500.4100, L509.3000 ####[facility] [address] [place], [address] BUN/CRE 17.3 RATIO Normal 10-20 [facility] Comment on above: Order Comment: Order Date: 12/07/23Order Info: [id number] - CMPOrder Info: - LIPIDOrder Date: 12/12/23Order Info: 6-3 - TSH Performed By: #### L 500.4050, L100.0500, L500.4100, L509.3000 ####[facility] [address] [place], [address] CA,Total 8.9 mg/dL Normal 8.5-10.1 [facility] Comment on above: Order Comment: Order Date: 12/07/23Order Info: [id number] - CMPOrder Info: - LIPIDOrder Date: 12/12/23Order Info: [id number] - TSH Performed By: #### L 500.4050, L100.0500, L500.4100, L509.3000 ####[facility] [address] [place], [address] Chloride [Moles/Vol] 114 mmol/L High 98-107 [facility] Comment on above: Order Comment: Order Date: 12/07/23Order Info: [id number] - CMPOrder Info: - LIPIDOrder Date: 12/12/23Order Info: [id number] - TSH Performed By: #### L 500.4050, L100.0500, L500.4100, L509.3000 ####[facility] [address] [place], [address] CO2 [Moles/Vol] 26.0 mmol/L Normal 21.0-32.0 [facility] Comment on above: Order Comment: Order Date: 12/07/23Order Info: 86-1 - CMPOrder Info: [id number] - LIPIDOrder Date: 12/12/23Order Info: [id number] - TSH Performed By: #### L 500.4050, L100.0500, L500.4100, L509.3000 ####[facility] [address] [place], [address] Creatinine [Mass/Vol] 1.10 mg/dL Normal 0.70-1.30 [facility] Comment on above: Order Comment: Order Date: 12/07/23Order Info: 785-1 - CMPOrder Info: [id number] - LIPIDOrder Date: 12/12/23Order Info: [id number] - TSH Result Comment: The validity of the calculated GFR GFRAA in patients over 70 years has not been determined. Clinical correlation is essential. Performed By: #### L 500.4050, L100.0500, L500.4100, L509.3000 ####[facility] [address] [place], [address] EST GFR - AA 93 mL/min Normal >60 [facility] Comment on above: Order Comment: Order Date: 12/07/23Order Info: 785-1 - CMPOrder Info: [id number] - LIPIDOrder Date: 12/12/23Order Info: [id number] - TSH Result Comment: Afri can Russian GFR Calc Performed By: #### L 500.4050, L100.0500, L500.4100, L509.3000 ####[facility] [address] [place], [address] GAP 2 Low 5-15 [facility] Comment on above: Order Comment: Order Date: 12/07/23Order Info: 86-1 - CMPOrder Info: [id number] - LIPIDOrder Date: 12/12/23Order Info: [id number] - TSH Performed By: #### L 500.4050, L100.0500, L500.4100, L509.3000 ####[facility] [address] [place], [address] GFR/1.73 sq M.predicted among non-blacks MDRD (S/P/Bld) [Vol rate/Area] 77 mL/min/{1.73_m2} Normal >60 [facility] Comment on above: Order Comment: Order Date: 12/07/23Order Info: [id number] - CMPOrder Info: [id number] - LIPIDOrder Date: 12/12/23Order Info: [id number] - TSH Result Comment: Non- GFR Calc Performed By: #### L 500.4050, L100.0500, L500.4100, L509.3000 ####[facility] [address] [place], [address] Globulin (S) [Mass/Vol] 3.6 g/dL Normal 2.2-4.2 [facility] Comment on above: Order Comment: Order Date: 12/07/23Order Info: 785-1 - CMPOrder Info: [id number] - LIPIDOrder Date: 12/12/23Order Info: 6-3 - TSH Performed By: #### L 500.4050, L100.0500, L500.4100, L509.3000 ####[facility] [address] [place], [address] Glucose [Mass/Vol] 97 mg/dL Normal 74-106 [facility] Comment on above: Order Comment: Order Date: 12/07/23Order Info: [id number] - CMPOrder Info: [id number] - LIPIDOrder Date: 12/12/23Order Info: 6-3 - TSH Performed By: #### L 500.4050, L100.0500, L500.4100, L509.3000 ####[facility] [address] [place], [address] Potassium [Moles/Vol] 4.3 mmol/L Normal 3.5-5.1 [facility] Comment on above: Order Comment: Order Date: 12/07/23Order Info: 785- - CMPOrder Info: [id number] - LIPIDOrder Date: 12/12/23Order Info: 3016-3 - TSH Performed By: #### L 500.4050, L100.0500, L500.4100, L509.3000 ####[facility] [address] [place], [address] Sodium [Moles/Vol] 142 mmol/L Normal 136-145 [facility] Comment on above: Order Comment: Order Date: 12/07/23Order Info: [id number] - CMPOrder Info: - LIPIDOrder Date: 12/12/23Order Info: 6-3 - TSH Performed By: #### L 500.4050, L100.0500, L500.4100, L509.3000 ####[facility] [address] [place], [address] T PROT 7.3 g/dL Normal 6.4-8.2 [facility] Comment on above: Order Comment: Order Date: 12/07/23Order Info: 07 - CMPOrder Info: [id number] - LIPIDOrder Date: 12/12/23Order Info: [id number] - TSH Performed By: #### L 500.4050, L100.0500, L500.4100, L509.3000 ####[facility] [address] [place], [address] Urea nitrogen [Mass/Vol] 19 mg/dL High 7-18 [facility] Comment on above: Order Comment: Order Date: 12/07/23Order Info: 07- - CMPOrder Info: [id number] - LIPIDOrder Date: 12/12/23Order Info: [id number] - TSH Performed By: #### L 500.4050, L100.0500, L500.4100, L509.3000 ####[facility] [address] [place], [address] Lipid Profileon 12-16-2023 Cholesterol [Mass/Vol] 158 mg/dL Normal 200 [facility] Comment on above: Order Comment: Order Date: 12/07/23Order Info: 86-1 - CMPOrder Info: [id number] - LIPIDOrder Date: 12/12/23Order Info: 3016-3 - TSH Result Comment: <200 mg/dL Desirable 200-240 mg/dL Borderline >240 mg/dL High Risk Performed By: #### L 500.4050, L100.0500, L500.4100, L509.3000 ####[facility] [address] [place], [address] Cholesterol in HDL [Mass/Vol] 37 mg/dL Low [facility] Comment on above: Order Comment: Order Date: 12/07/23Order Info: 785- - CMPOrder Info: [id number] - LIPIDOrder Date: 12/12/23Order Info: 3016-3 - TSH Result Comment: The drugs N-Acetylcysteine and Metamizole may falsely depress this assay. Reference Range HDL <40 mg/dL Low HDL Cholesterol HDL >or= 60 mg/dL High HDL Cholesterol Performed By: #### L 500.4050, L100.0500, L500.4100, L509.3000 ####[facility] [address] [place], [address] Cholesterol in LDL [Mass/Vol] 84 mg/dL Normal 0-130 [facility] Comment on above: Order Comment: Order Date: 12/07/23Order Info: 785-1 - CMPOrder Info: [id number] - LIPIDOrder Date: 12/12/23Order Info: 3016-3 - TSH Performed By: #### L 500.4050, L100.0500, L500.4100, L509.3000 ####[facility] [address] [place], [address] Cholesterol in VLDL [Mass/Vol] 37 mg/dL Normal 5-40 [facility] Comment on above: Order Comment: Order Date: 12/07/23Order Info: [id number] - CMPOrder Info: [id number] - LIPIDOrder Date: 12/12/23Order Info: 6-3 - TSH Performed By: #### L 500.4050, L100.0500, L500.4100, L509.3000 ####[facility] [address] [place], [address] Triglyceride [Mass/Vol] 184 mg/dL Normal [facility] Comment on above: Order Comment: Order Date: 12/07/23Order Info: 07- - CMPOrder Info: [id number] - LIPIDOrder Date: 12/12/23Order Info: 6-3 - TSH Result Comment: The drugs N-Acetylcysteine and Metamizole may falsely depress this assay. Serum Triglycerides Reference Interval Normal <150 mg/dL Borderline high 150 - 199 mg/dL High 200 - 499 mg/dL Very High > or = 500 mg/dL Performed By: #### L 500.4050, L100.0500, L500.4100, L509.3000 ####[facility] [address] [place], [address] Thyroid Stim Hormone (TSH)on 12-16-2023 TSH 1.520 uIU/mL Normal 0.358-3.740 [facility] Comment on above: Order Comment: Order Date: 12/07/23 Order Info: 0786- - CMP Order Info: [id number] - LIPID Order Date: 12/12/23 Order Info: 6-3 - TSH Performed By: #### L 501.9520, L3100.5310 #### [facility] [address] [place], [address] Absolute lymphocyte countOrd ered By: Catalina Polk on 04-22-2023 Lymphocytes Auto (Unsp spec) [#/Vol] 1.72 10*3/uL 0.83-4.51 [facility] Automated lymphocyte count a s percentage of total leukocytesOrdered By: Catalina Polk on 04-22-2023 Lymphocytes/100 WBC Auto (Unsp spec) 36.6 % 19-41 [facility] Basophil percentageOrdered B y: Catalina Polk on 04-22-2023 Basophils/100 WBC (Bld) 0.4 % 0-1 [facility] Chloride [Moles/Vol] 112 mmol/L 98-107 [facility] Cholesterol [Mass/Vol] 162 mg/dL <200 [facility] Comment on above: <200 mg/dL Desirable 200-240 mg/dL Borderline >240 mg/dL High Risk Eosinophils/100 WBC (Bld) 3.6 % 0-5 [facility] Glucose [Mass/Vol] 85 mg/dL 74-106 [facility] Hemoglobin (Bld) [Mass/Vol] 15.2 g/dL 13.0-16.5 [facility] Monocytes/100 WBC (Bld) 15.7 % 0-10 [facility] Neutrophils (Bld) [#/Vol] 2.0 10*3/uL 2.0-7.7 [facility] Neutrophils/100 WBC (Bld) 43.5 % 47-70 [facility] Potassium [Moles/Vol] 4.1 mmol/L 3.5-5.1 [facility] Sodium [Moles/Vol] 143 mmol/L 136-145 [facility] Testosterone [Mass/Vol] 435.88 ng/dL [facility] Comment on above: CENTRAL 90% REFERENC E RANGES MALE AGE <50 197.44 - 669.58 ng/dL MALE AGE > or = 50 187.72 - 684.19 ng/dL FEMALE AGE <50 8.38 - 35.01 ng/dL FEMALE AGE > or = 50 <7.00 - 35.92 ng/dL Effective as of 09/15/20 Triglyceride [Mass/Vol] 60 mg/dL <199 [facility] Comment on above: The drugs N-Acetylcy steine and Metamizole may falsely depress this assay.Serum Triglycerides Reference Interval Normal <150 mg/dL Borderline high 150 - 199 mg/dL High 200 - 499 mg/dL Very High > or = 500 mg/dL WBC (Bld) [#/Vol] 4.7 10*3/uL 4.4-11.0 [facility] Determination of erythrocyte mean corpuscular volume (MCV)Ordered By: Catalina Polk on 04-22-2023 MCV (RBC) [Entitic vol] 84.1 fL 80-94 [facility] Erythrocyte distribution wid th ratioOrdered By: Catalina Polk on 04-22-2023 Erythrocyte distribution width (RBC) [Ratio] 12.4 % 11.6-14.6 [facility] Erythrocyte distribution wid th standard deviationOrdered By: Catalina Polk on 04-22-2023 Erythrocyte distribution width (RBC) [Entitic vol] 37.5 fL 35.1-43.9 [facility] Hematocrit Auto (Bld) [Volum e fraction]Ordered By: Catalina Pokl on 04-22-2023 Hematocrit (Bld) [Volume fraction] 46.6 % 40-54 [facility] Immature granulocytes/100 WB C Auto (Bld)Ordered By: Catalina Polk on 04-22-2023 Immature granulocytes/100 WBC (Bld) 0.200 % 0.0-0.9 [facility] Comment on above: IG% - Immature Granu locytes (promyelocytes, myelocytes and metamyelocytes) > 1% indicates that a LEFT SHIFT is Present. Laboratory - Chemistry and C hemistry - challengeOrdered By: Catalina Polk on 04-22-2023 Cholesterol in HDL [Mass/Vol] 46 mg/dL >40 [facility] Comment on above: The drugs N-Acetylcy steine and Metamizole may falsely depress this assay. Reference Range HDL <40 mg/dL Low HDL Cholesterol HDL >or= 60 mg/dL High HDL Cholesterol Cholesterol in LDL [Mass/Vol] 104 mg/dL 0-130 [facility] CO2 [Moles/Vol] 27.0 mmol/L 21.0-32.0 [facility] Urea nitrogen/Creatinine [Mass ratio] 17.9 mg/mg 10-20 [facility] Laboratory - Hematology and Cell countsOrdered By: Catalina Polk on 04-22-2023 MCH (RBC) [Entitic mass] 27.4 pg 27.0-32.0 [facility] MCHC (RBC) [Mass/Vol] 32.6 g/dL 32-36 [facility] Nucleated RBC/100 WBC (Bld) [Ratio] 0 % 0-5 [facility] Platelet mean volume (Bld) [Entitic vol] 10.9 fL 6.2-12.0 [facility] Platelets (Bld) [#/Vol] 197 10*3/uL 150-450 [facility] No Panel InformationOrdered By: Catalina Polk on 04-22-2023 Estimated GFR (MDRD) Amer 91 mL/min >60 [facility] Comment on above: GFR Calc Estimated GFR (MDRD) Non-Af Amer 76 mL/min >60 [facility] Comment on above: Non- GFR Calc Urine Microalbumin/Creatinine Ratio 8.7 mg/g CRE <30 [facility] VLDL Cholesterol 12 mg/dL 5-40 [facility] RBC Auto (Bld) [#/Vol]Ordere d By: Catalina Polk on 04-22-2023 RBC (Bld) [#/Vol] 5.54 10*6/uL 4.6-6.2 [facility] Serum or plasma calcium rosalio urement (mass/volume)Ordered By: Catalina Polk on 04-22-2023 Calcium [Mass/Vol] 9.5 mg/dL 8.5-10.1 [facility] Serum or plasma creatinine m easurement (mass/volume)Ordered By: Catalina Polk on 04-22-2023 Creatinine [Mass/Vol] 1.12 mg/dL 0.70-1.30 [facility] Comment on above: The validity of the calculated GFR & GFRAA in patients over 70 years has not been determined. Clinical correlation is essential. Serum or plasma urea nitroge n measurement (mass/volume)Ordered By: Catalina Polk on 04-22-2023 Urea nitrogen [Mass/Vol] 20 mg/dL 7-18 [facility] Thin prep Papanicolaou smear with manual screeningOrdered By: Catalina Polk on 04-22-2023 Thin prep Papanicolaou smear with manual screening 4 5-15 [facility] Thin prep Papanicolaou smear with manual screening 19.1 mg/L NO RANGE EST. [facility] Urine creatinine measurement (mass/volume)Ordered By: Catalina Polk on 04-22-2023 Creatinine (U) [Mass/Vol] 220.00 mg/dL NO RANGE EST. [facility] Basophil percentageOrdered B y: Kacy Valenzuela on 11-09-2022 Testosterone [Mass/Vol] 252 ng/dL 264-916 [facility] Comment on above: Adult male reference interval is based on a population ofhealthy nonobese males (BMI <30) between 19 and 39 yearsold. Pamela et.al. JCEM 2017,102;2394-3295. PMID:[id number]. Free testosterone percentage Ordered By: Kacy Valenzuela on 11-09-2022 Testosterone Free/Testosterone.total [Mass fraction] 2.66 % 1.50-4.20 [facility] Comment on above: Performed at: [address] [id number] Director: Willian Ghotra PhD, Phone: [phone] at: [facility] [id number] Director: Kale Helm MD, Phone: [phone] Serum or plasma testosterone free measurement (mass/volume)Ordered By: Kacy Valenzuela on 11-09-2022 Testosterone Free [Mass/Vol] 6.70 ng/dL 5.00-21.00 [facility] Absolute lymphocyte countOrd ered By: Catalina Polk on 07-29-2022 Lymphocytes Auto (Unsp spec) [#/Vol] 1.99 10*3/uL 0.83-4.51 [facility] Basophil percentageOrdered B y: Catalina Polk on 07-29-2022 Basophils/100 WBC (Bld) 0.3 % 0-1 [facility] Cholesterol [Mass/Vol] 153 mg/dL <200 [facility] Comment on above: <200 mg/dL Desirable 200-240 mg/dL Borderline >240 mg/dL High Risk Eosinophils/100 WBC (Bld) 3.0 % 0-5 [facility] Neutrophils (Bld) [#/Vol] 3.0 10*3/uL 2.0-7.7 [facility] Neutrophils/100 WBC (Bld) 49.0 % 47-70 [facility] Testosterone [Mass/Vol] 763.42 ng/dL [facility] Comment on above: CENTRAL 90% REFERENC E RANGES MALE AGE <50 197.44 - 669.58 ng/dL MALE AGE > or = 50 187.72 - 684.19 ng/dL FEMALE AGE <50 8.38 - 35.01 ng/dL FEMALE AGE > or = 50 <7.00 - 35.92 ng/dL Effective as of 09/15/20 Triglyceride [Mass/Vol] 137 mg/dL <199 [facility] Comment on above: The drugs N-Acetylcy steine and Metamizole may falsely depress this assay.Serum Triglycerides Reference Interval Normal <150 mg/dL Borderline high 150 - 199 mg/dL High 200 - 499 mg/dL Very High > or = 500 mg/dL WBC (Bld) [#/Vol] 6.1 10*3/uL 4.4-11.0 [facility] Blood erythrocytes count (nu mber/volume)Ordered By: Catalina Polk on 07-29-2022 RBC (Bld) [#/Vol] 6.30 10*6/uL 4.6-6.2 [facility] Blood hemoglobin measurement (mass/volume)Ordered By: Catalina Polk on 07-29-2022 Hemoglobin (Bld) [Mass/Vol] 16.3 g/dL 13.0-16.5 [facility] Blood lymphocytes/100 leukoc ytesOrdered By: Catalina Polk on 07-29-2022 Lymphocytes/100 WBC (Bld) 32.7 % 19-41 [facility] Blood monocytes/100 leukocyt esOrdered By: Catalina Polk on 07-29-2022 Monocytes/100 WBC (Bld) 14.8 % 0-10 [facility] Blood platelet mean volumeOr dered By: Catalina Polk on 07-29-2022 Platelet mean volume (Bld) [Entitic vol] 11.0 fL 6.2-12.0 [facility] Determination of erythrocyte mean corpuscular volume (MCV)Ordered By: Catalina Polk on 07-29-2022 MCV (RBC) [Entitic vol] 81.7 fL 80-94 [facility] Hematocrit Auto (Bld) [Volum e fraction]Ordered By: Catalina Polk on 07-29-2022 Hematocrit (Bld) [Volume fraction] 51.5 % 40-54 [facility] Laboratory - Hematology and Cell countsOrdered By: Catalina Polk on 07-29-2022 Erythrocyte distribution width (RBC) [Entitic vol] 40.0 fL 35.1-43.9 [facility] Erythrocyte distribution width (RBC) [Ratio] 13.4 % 11.6-14.6 [facility] Immature granulocytes/100 WBC (Bld) 0.200 % 0.0-0.9 [facility] Comment on above: IG% - Immature Granu locytes (promyelocytes, myelocytes and metamyelocytes) > 1% indicates that a LEFT SHIFT is Present. MCH (RBC) [Entitic mass] 25.9 pg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
[2024-11-15 13:08] LABS: PSA,Total - Annual Screen 0.57 ng/mL (0.02-4.00)
== END | disposition home or self-care (01) ==
LOC: MFPLAB 09:10
PROVIDERS: PCP Family Medicine
DX: Z12.5 Encounter for screening for malignant neoplasm of prostate (principal)
CPT/HCPCS: 36415; 84153; G0103